=== PATIENT | male | born 1950 | race Caucasian/White ===

== ENCOUNTER → 2017-01-14 | Outpatient (CLI) | payer OTHER ==
[~2017-01-14] MED LIST: ALBINS INH; ALBU18002 INH; ALBUAER2 INH; AMLO-114 PO; ASCA500 PO; ASPI81TA28 PO; CYAN10005 PO; FERR1TAB23 PO; FLVHFA44 INH; GABA-113 PO; LORA10TA44 PO; METHPOW7; METHPOW7 PO; MONT1TAB5 PO; NRN600 PO; NXM/40 PO; RIVA1TAB4 PO; ROSU40TA PO; SUCR1TAB29 PO; TRAM-10 PO; UMEC1INH INH; XNX25 PO
--- NOTE | 2017-01-14 10:17 | DIAGNOSTIC IMAGING REPORT ---
MRI OF THE LUMBAR SPINE WITHOUT IV CONTRAST CLINICAL HISTORY: Right lower extremity radiculopathy. COMPARISON STUDY: MRI of the lumbar spine dated 05/18/2014. TECHNIQUE: MRI of the lumbar spine is performed utilizing various T1 and T2-weighted sequences in the axial and sagittal planes. IV contrast was not administered for this examination. FINDINGS: Lumbar spine: Vertebral body height and alignment are maintained throughout the lumbar spine. There is mild straightening of the lumbar lordosis. Small anterior osteophytes are seen throughout. Mild degenerative endplate edema is noted at L2-L3. Chronic degenerative endplate change is seen at L3-L4, L4-L5, and L5-S1. No destructive bony lesion is identified. The transverse and spinous processes are intact as visualized. There is no evidence of spondylolysis. Intervertebral discs: There is degenerative disc desiccation seen throughout the lumbar spine. Moderate loss of height is seen at L1-L2 and L4-L5. Advanced loss of height is present at L5-S1. Spinal cord: Visualized spinal cord is normal in morphology and signal intensity. The conus medullaris terminates at the L1-L2 interspace. The nerve roots of the cauda equina are normal in morphology. L1-L2: There is a posterior disc bulge eccentric to the right. There is no significant acquired compromise in the central canal. There is mild right-sided subarticular stenosis. This abuts the exiting right L1 and transiting right L2 nerve roots. L2-L3: There is a small posterior disc bulge with annular fissure. There is no significant acquired compromise of the central canal. Mild bilateral subarticular stenosis is noted. The neural foramina are patent. L3-L4: There is broad-based posterior disc bulge with annular fissure. There is no significant acquired compromise of the central canal. There is mild bilateral subarticular stenosis. The disc bulge abuts the transiting left L4 nerve root. L4-L5: There is broad-based posterior disc bulge eccentric to the right. There is no significant acquired compromise of the central canal. The minimum AP canal diameter measures 13 mm. There is bilateral subarticular stenosis. The disc bulge may impinge on the exiting right L4 and abuts the transiting right L5 nerve roots. There is mild left-sided subarticular stenosis. Facet arthropathy is of no consequence. The neural foramina are patent. L5-S1: There is posterior disc bulge eccentric to the left with annular fissure. There is no significant acquired compromise of the central canal. The disc bulge impinges on the exiting left L5 and the transiting left S1 nerve roots. Sacrum: Visualized sacrum is normal in morphology and signal intensity. Soft tissues: There is mild fatty atrophy of the paraspinous musculature. The partially imaged retroperitoneal structures are grossly unremarkable when completely assessed. There is ectasia of the distal abdominal aorta which measures up to 2.7 cm. IMPRESSION: 1. There is no large disc herniation or significant acquired compromise of the central canal. 2. Multilevel lumbosacral spondylosis. See above discussion for detailed level by level analysis. 3. Degenerative disc disease as above. Endplate edema is present at L2-L3. Dictated: 01/14/2017 9:53 AM Transcribed: 01/14/2017 10:17 AM L[place] Electronically signed by: Juarez Rodriguez M.D. 01/14/2017 10:45 AM Dictated Date/Time: 01/14/2017 9:53 AM
== END | disposition home or self-care (01) ==
LOC: C.MRIBC 08:41
PROVIDERS: ATTEND Anesthesiology
DX: M47.27 Other spondylosis with radiculopathy, lumbosacral region (principal); M51.36 Other intervertebral disc degeneration, lumbar region; R60.9 Edema, unspecified

== ENCOUNTER → 2017-01-29 | Outpatient (CLI) | payer OTHER ==
[~2017-01-29] MED LIST changes: -NRN600 PO
== END | disposition home or self-care (01) ==
LOC: C.RDSM 11:25
PROVIDERS: ATTEND Orthopaedic Surgery Sports Medicine
DX: M79.605 Pain in left leg (principal); M79.604 Pain in right leg

== ENCOUNTER → 2017-03-30 | Day surgery (SDC) | payer OTHER ==
[2017-03-18 15:51] VITALS: Ht 179.1 cm; Wt 90.9 kg
[~2017-03-30] VITALS: Ht 179.1 cm; Wt 90.9 kg
[~2017-03-30] MED LIST changes: -ALBINS INH; -ALBUAER2 INH; +IOPAMIDOL INJ 61% 15 ML VIAL ONE; +LIDOCAINE HCL 1% MPF 5 ML VIAL ONE; -METHPOW7; +SODIUM CHLORIDE 0.9% INJ 10 ML VIAL ONE; -SUCR1TAB29 PO; -XNX25 PO
--- NOTE | 2017-03-30 12:56 | History & Physical Bridge - SC ---
H&P Re-Evaluation Bridge Note: I have examined the patient, reviewed the History & Physical and in the interval since the performance of the History & Physical I have noted the following changes of clinical significance: No changes noted
[2017-03-30 13:23] VITALS: TEMP 37.2
--- NOTE | 2017-03-30 13:29 | Discharge Instructions ---
Discharge Instructions Date of Service March 30, 2017. Visit Reason for Visit: Lumbar Radiculopathy Discharge Discharge Diagnosis / Problem: Right leg pain Discharge Goals Goal(s): Decrease discomfort, Improve function Medications Stopped Medications Name(s): ASA and Xaralto stopped 03/26. Activity Recommendations Activity Limitations: resume your previous activity Anesthesia . Post Anesthesia Instructions: If you have had General Anesthesia or IV Sedation: * Do not drive today. * Resume driving when surgeon permits. * Do not make important decisions or sign legal documents today. * Call surgeon for: 1. Temperature elevations greater than 101 degrees F. 2. Uncontrollable pain. 3. Excessive bleeding. 4. Persistent nausea and vomiting. 5. Medication intolerance (nausea, vomiting or rash). * For nausea and vomiting use only clear liquids such as: tea, soda, bouillon until nausea subsides, then gradually increase diet as tolerated. * If you have any concerns or questions, call your surgeon's office. If physician is unavailable and it is an emergency, call 911 or go to the nearest emergency room. . Diet Recommendations Recommended Home Diet: resume previous diet Procedures Procedures Performed: lumbar epidural steroid injection Pending Studies Studies pending at discharge: no Medical Emergencies . Who to Call and When: Medical Emergencies: If at any time you feel your situation is an emergency, please call 911 immediately. . Non-Emergent Contact Non-Emergency issues call your: Specialist . . "Provider Documentation" section prepared by Anthony Naqvi. .
[2017-03-30 13:36] VITALS: BP 143/83; PULSE 66; O2SAT 96
--- NOTE | 2017-03-30 13:51 | OPERATIVE REPORT ---
DATE OF OPERATION: 03/30/2017 PREOPERATIVE DIAGNOSIS: L4-L5 disc protrusion with a right lower extremity radiculopathy. POSTOPERATIVE DIAGNOSIS: Same. PROCEDURE: Right paramedian L4-L5 interlaminar epidural steroid injection under fluoroscopic guidance. SURGEON: Dr. Anthony Naqvi. INDICATIONS: The patient is a 67-year-old white male who has had a 12-year history of radicular pain down the leg. His examination and history are most consistent with a radiculopathy. Imaging of the MRI reveals a disc protrusion at L4-L5 coming in close contact with the L4 and L5 nerve roots. He presents today for a lumbar epidural steroid injection to provide him with relief as he has failed conservative treatment. PHYSICAL EXAMINATION: Pleasant male seated comfortably. He has no sciatic notch sensitivity. He has normal sensation. He has some increased sensitivity of the dermatome of the right lower extremity L5. He is without any focal weakness. Negative seated straight leg raises. CONSENT: Verbal and written consent was obtained from the patient. Risks and benefits were reviewed. Risks include but are not limited to epidural abscess, epidural hematoma, allergic reaction, dural puncture. The patient wishes to proceed. PROCEDURE: The patient was taken back to the special procedures room of the [facility] where he was maintained in a prone position. Backside was cleansed with Betadine x3 and a dry sterile dressing was applied. Fluoroscope was used to identify the L4-L5 interlaminar space. The overlying skin was anesthetized on the right side with 4 mL of lidocaine 1% with a 25 gauge 1.5-inch needle. A 22-gauge 3-1/2 inch Tuohy needle was then directed down towards the intralaminar space and was advanced under lateral fluoroscopic guidance. Loss of resistance was noted at a depth of 6.5 cm. Isovue 300 contrast was not utilized given his reaction of hives in the past to it. He then underwent injection after negative aspiration of 40 mg of Depo-Medrol, 4 mL of preservative free sodium chloride. Injection was well tolerated and reproduced a familiar transient radicular sensation into the leg and back. DISPOSITION: 1. The patient is taken out into the discharge recovery area where he will be discharged home once discharge criteria have been met. 2. Follow up in the [facility] office in 2-4 weeks. I attest to the content of the Intraoperative Record and any orders documented therein. Any exceptio ns are noted below.
== END | disposition home or self-care (01) ==
LOC: X.SURG 11:55
PROVIDERS: ATTEND Physical Medicine & Rehabilitation
DX: M51.26 Other intervertebral disc displacement, lumbar region (principal); M54.16 Radiculopathy, lumbar region; Z79.82 Long term (current) use of aspirin

== ENCOUNTER → 2017-12-24 | Outpatient (CLI) | payer OTHER ==
[~2017-12-24] MED LIST changes: -IOPAMIDOL INJ 61% 15 ML VIAL ONE; -LIDOCAINE HCL 1% MPF 5 ML VIAL ONE; -SODIUM CHLORIDE 0.9% INJ 10 ML VIAL ONE
--- NOTE | 2017-12-24 13:40 | DIAGNOSTIC IMAGING REPORT ---
LUMBAR SPINE 4 VIEWS CLINICAL HISTORY: Right leg pain. FINDINGS: An AP view of the lumbar spine as well as lateral views of the lumbar spine in the neutral, lateral, and flexed positions are correlated with MRI of lumbar spine dated 07/21/2010. The skeletal structures are well mineralized for age. There is no radiographic evidence of fracture or malalignment. Vertebral body height is maintained throughout the lumbar spine. There is 6 mm of retrolisthesis at L1-L2. This was stable on the flexion/extension views. Vertebral body alignment is otherwise maintained. There was no inducible subluxation present on the flexion/extension views. Anterior osteophytes are seen throughout. The transverse and spinous processes appear intact. Mild lumbar levocurvature may be positional. Moderate facet arthropathy is seen at L5-S1. There is [id number] disc space narrowing at L5-S1 with associated endplate sclerosis. Mild disc space narrowing is seen at the remaining lumbar levels. The bony pelvis is intact as visualized. Mild sclerotic change is noted in the sacroiliac joints. There is a nonobstructed abdominal bowel gas pattern. Atherosclerotic calcification is observed in the abdominal aorta. IMPRESSION: 1. No acute bony abnormality seen in the lumbar spine. 2. There is mild retrolisthesis at L1-L2. This was stable in the flexion/extension views. 3. No disc subluxation was seen on the flexion/extension views. 4. Spondylotic change as above. Dictated: 12/24/2017 1:17 PM Transcribed: 12/24/2017 1:40 PM Hilda Electronically signed by: Juarez Rodriguez M.D. 12/24/2017 1:48 PM Dictated Date/Time: 12/24/2017 1:17 PM
== END | disposition home or self-care (01) ==
LOC: C.RDSM 18:48
PROVIDERS: ATTEND Orthopaedic Surgery
DX: M79.604 Pain in right leg (principal)

== ENCOUNTER 2024-05-23 08:48 | Observation (INO) ==
[2024-05-23] MEDS: methylPREDNISolone 125 MG/2 ML VIAL IV ONE (09:40)
[2024-05-23] MEDS: diphenhydrAMINE 50 MG/ML VIAL IV ONE (09:40)
[2024-05-23 10:21] LABS: Adenovirus PCR Not Detected (NotDetected); Bordetella parapertussis PCR Not Detected (NotDetected); Bordetella pertussis PCR Not Detected (NotDetected); Chlamydia pneumoniae PCR Not Detected (NotDetected); Coronavirus 229E PCR Not Detected (NotDetected); Coronavirus CoV-2 (COVID19)PCR Not Detected (NotDetected); Coronavirus HKU1 PCR Not Detected (NotDetected); Coronavirus NL63 PCR Not Detected (NotDetected); Coronavirus OC43PCR Not Detected (NotDetected); Human Metapneumovirus PCR Not Detected (NotDetected); Influenza A PCR Not Detected (NotDetected); Influenza B PCR Not Detected (NotDetected); Mycoplasma pneumoniae PCR Not Detected (NotDetected); Parainfluenza Virus 1 PCR Not Detected (NotDetected); Parainfluenza Virus 2 PCR Not Detected (NotDetected); Parainfluenza Virus 3 PCR Not Detected (NotDetected); Parainfluenza Virus 4 PCR Not Detected (NotDetected); Respiratory Syncytial VirusPCR Not Detected (NotDetected); Rhinovirus/Enterovirus PCR Not Detected (NotDetected)
--- NOTE | 2024-05-23 10:32 | Emergency Department Note ---
Impression & Plan Generalized weakness, Abdominal pain, Infarction of spleen ED Provider Note HISTORY OF PRESENT ILLNESS: Patient is a 74 year old male presenting with abdominal pain and weakness. Patient reports that he has had symptoms for the last week. States he was seen in [facility] a week ago and was told that he had an abdominal aortic aneurysm and "they wanted to transfer me to [place] but I said no." He states that in the last week he has been having intermittent episodes of left-sided abdominal pain. Reports nausea but denies any vomiting or diarrhea. He states that he is also feels very unsteady on his feet. He states he feels very weak and rundown. Denies any chest pain or shortness of breath. He is on Plavix for history of cardiac stents. He denies any fevers. Denies any dysuria or hematuria. ROS: as above PHYSICAL EXAM: Constitutional: Patient appears in no acute distress. HENT: Head: Normocephalic and atraumatic. Eyes: EOMI, PERRL Mouth/Throat: Mucous membranes moist. Neck: Trachea midline. Neck supple. Cardiovascular: RRR, No murmurs, rubs or gallops. Intact distal pulses. Pulmonary/Chest: No respiratory distress. Breath sounds clear and equal bilaterally. No wheezes or rales. Abdominal: Abdomen soft, no tenderness, rebound or guarding. Musculoskeletal: No edema, tenderness or deformity noted. Skin: Warm and dry. No rash, erythema, pallor or cyanosis Psychiatric: Appropriate mood and affect for situation. Neurological: Alert and keenly responsive. Facies symmetric. Able to raise eyebrows, close eyes, smile, puff mouth, stick out tongue, move tongue left and right and raise palate symmetrically. Able to shrug shoulders. PERRLA. SILT to forehead below eye and at jawline. Can hear soft noise bilaterally. Good finger to nose. Strength 5/5 in bilateral upper and lower extremities. SILT throughout bilateral upper and lower extremities. MDM: - Vitals signs stable - History obtained via patient. History as above. - Chronic conditions affecting care: GERD; Afib; HTN; HLD; COPD - Differential diagnoses include, but are not limited to: gastritis; cholecystitis; small bowel obstruction; ischemic gut; CVA - Order placed for continuous cardiac monitoring. At this time, monitor showed rate of 65 bpm with normal sinus rhythm, per my interpretation. - External medical records reviewed. Pulmonary visit note dated 04/28/2024 was reviewed. Patient follows in their clinic for COPD. - EKG interpreted by myself showed normal sinus rhythm. Rate 75 bpm. QT 388. No acute ischemic changes - Laboratory workup interpreted by myself showed leukopenia (WBC 2.84); normal PT/INR; stable electrolytes; normal troponin; normal lactate; normal lipase - UA negative for infection - Viral respiratory panel negative - Patient given 40 mg IV solumedrol and 50 mg IV benadryl for pre-treatment for CT scan. - CT head wo contrast negative for acute hemorrhage, per my interpretation - CT abdomen/pelvis with IV contrast showed subtle hypoenhancement of a small portion of the medial aspect of the spleen concerning for possible small splenic infarct. Noted to have a 3.1 cm infrarenal abdominal aortic aneurysm. Also noted to have mild fluid-filled distal small bowel and right colon, concerning for gastroenteritis. - Given patient's symptoms and concerns for weakness, will admit for further workup - Discussion was had with case fitter about patient's case and need for admission - Hospitalist, Dr. Sexton, consulted for admission - [facility] admitted [facility] for further evaluation and management. ASSESSMENT AND PLAN: Diagnosis: generalized weakness; abdominal pain; splenic infarction Plan: admit Past Med/Surg History Problem List (Updated 05/23/24 @ 13:43 by Bridget Du MD) Infarction of spleen (Acute) Abdominal pain (Acute) Generalized weakness (Acute) Gastritis Encounter for pre-operative examination Neuropathy Mixed action and resting tremor Abnormal CT scan, chest Ground glass opacities 06/15/2023 Allergic rhinitis MACIEL (dyspnea on exertion) History of sinusitis History of tobacco use Chronic back pain greater than 3 months duration Pulmonary nodule seen on imaging study History of COVID-19 Encounter for pre-operative examination Sensorineural hearing loss (SNHL) Chronic rhinitis Excessive cerumen in both ear canals Acid reflux Seasonal allergies Asthma Hypertension Heart disease Action tremor (Chronic) Vitamin B12 deficiency Tremor TIA (transient ischemic attack) Restless leg syndrome Lumbar radiculopathy Lumbar canal stenosis Anterior leg pain History of esophageal reflux Chronic obstructive pulmonary disease Chronic asthmatic bronchitis Back pain Atrial fibrillation GERD (gastroesophageal reflux disease) Medical History Epigastric abdominal pain Neuropathy Enlarged prostate History of sinusitis History of COVID-19 Tremor Osteoarthritis Spinal stenosis DDD (degenerative disc disease) GERD (gastroesophageal reflux disease) Hearing deficit AAA (abdominal aortic aneurysm) Atrial fibrillation CAD (coronary artery disease) HLD (hyperlipidemia) HTN (hypertension) COPD (chronic obstructive pulmonary disease) Asthma Surgical History History of cardioversion H/O eye surgery History of sinus surgery History of right knee surgery History of esophagogastroduodenoscopy (EGD) History of colonoscopy History of cardiac catheterization Presence of Watchman left atrial appendage closure device History of cardiac radiofrequency ablation Family History Mother Brain tumor Sister Cancer Other No family history of adverse response to anesthesia No family history of bleeding disorder Social History Smoking Status: Former smoker Tobacco Type: Cigarettes Age Started Using Tobacco: 12; Age Quit Using Tobacco: 62; packs per day: 1.5; Second Hand Exposure: Yes (AT WORK/MOTHER SMOKED); Do You Dip or Chew Tobacco: No (hx off and on for 10 yr/ quit > 1 yr ago.); Hx Alcohol Use: Yes (hx heavy/11 yr ago) Hx Substance Use: No Preferred Language: Nauruan Communication Ability: Effective Hearing Ability: Use of Hearing Aid [employer] Supervisor Required: No Beliefs That Will Affect Care: None Current Living Situation: Significant Other current occupational status: retired Feels Safe at Home: Yes Assistive Devices: Denture - Upper, Denture - Lower, Hearing Aid - Bilateral and Other Allergies Allergies Allergy/AdvReac Type Severity Reaction Status Date / Time Iodinated Contrast Media Allergy Mild Hives Verified 04/26/24 12:31 house dust mite Allergy Unknown Per Verified 04/26/24 12:31 allergy testing levalbuterol Allergy Unknown Dyspnea, Verified 04/26/24 12:31 elevated heart rate ? - pt doesn't remember mold Allergy Unknown Per Verified 04/26/24 12:31 allergy testing ragweed pollen Allergy Unknown Per Verified 04/26/24 12:31 allergy testing albuterol [From Combivent] AdvReac Unknown Heart Verified 04/26/24 12:31 racing ipratropium [From [employer]] AdvReac Unknown Heart Verified 04/26/24 12:31 racing lisinopril AdvReac Unknown Cough Verified 04/26/24 12:31 Home Meds Home Medications Medication Instructions Recorded Confirmed amlodipine 10 mg tablet 10 mg PO QAM 07/17/20 04/26/24 rosuvastatin 40 mg tablet 40 mg PO QPM 07/17/20 04/26/24 multivitamin 1 tab PO QAM 03/26/21 04/26/24 aspirin 81 mg tablet,delayed 81 mg PO QAM 05/28/21 04/26/24 release clopidogrel 75 mg tablet 75 mg PO QAM 07/01/23 04/26/24 polyethylene glycol 3350 17 17 g PO QAM 12/09/23 04/26/24 gram/dose oral powder (Miralax) psyllium husk 0.4 gram capsule 0.4 g PO QAM 12/09/23 04/26/24 (Metamucil) trazodone 50 mg tablet 50 mg PO UD PRN Sleep 12/09/23 04/26/24 ezetimibe 10 mg tablet 10 mg PO QPM 12/14/23 04/26/24 fexofenadine 60 mg-pseudoephedrine 1 tab PO UD PRN allergy symptoms 12/14/23 04/26/24 ER 120 mg tablet,ext.release,12 hr hydrochlorothiazide 12.5 mg tablet 12.5 mg PO QAM 12/14/23 04/26/24 montelukast 10 mg tablet 10 mg PO QAM 12/14/23 04/26/24 Previous Rx's Medication Instructions Recorded Flutter Valve #1 ea 10/06/22 azelastine 137 mcg (0.1 %) nasal 2 spray intranasal BID #30 mL 03/11/23 spray albuterol sulfate 2.5 mg/3 mL 2.5 mg (3 mL) inhalation Q4H PRN 07/07/23 (0.083 %) solution for nebulization shortness of breath or wheezing #180 mL albuterol sulfate 90 mcg/actuation 2 puff inhalation Q6H PRN Wheezing 11/03/23 aerosol inhaler (ProAir HFA) #6.7 grams linaclotide 290 mcg capsule 290 mcg PO DAILY #90 caps 12/28/23 (Linzess) pantoprazole 40 mg tablet,delayed See Rx Instructions PO DAILY #90 12/28/23 release tabs sucralfate 1 gram tablet 1 g PO Q6H PRN abdominal 12/28/23 discomfort #120 tabs gabapentin 300 mg capsule 300 mg PO BID 30 days #60 caps 01/06/24 baclofen 10 mg tablet 10 mg PO BID PRN leg pain /Muscle 03/07/24 Spasm #60 tabs pregabalin 200 mg capsule 200 mg PO BID 30 days #60 caps 03/07/24 primidone 50 mg tablet 50 mg PO DAILY PRN tremors #30 03/07/24 tabs tramadol 50 mg tablet 100 mg (2 x 50 mg) PO BID PRN pain 03/07/24 30 days #120 tabs azithromycin 250 mg tablet 250 mg PO DAILY 5 days #5 tabs 03/17/24 prednisone 20 mg tablet 20 mg PO DAILY #7 tabs 03/17/24 umeclidinium 62.5 mcg-vilanterol 1 inh inhalation DAILY #60 ea 03/17/24 25 mcg/actuation powdr for inhalation (Anoro Ellipta) Results & Data (ED) Vital Signs Vital Signs - 24 hr 05/23/24 08:50 05/23/24 09:01 05/23/24 09:27 Temperature 36.5 C Temperature Source Temporal Artery Scan Pulse Rate 86 Pulse Rate [Apical] 67 Pulse Rate from SpO2 Sensor Respiratory Rate 20 16 Respiratory Depth Normal Blood Pressure 111/46 L 141/76 H Blood Pressure [Right Arm] 141/76 H Blood Pressure Mean 67 90 Blood Pressure Mean [Right Arm] 97 Pulse Oximetry 95 97 Oxygen Delivery Method Room Air Sepsis Recent Fever Within 48 Hours No Sepsis New/Unexplained Change in Mental Status N/A Sepsis Action Taken by Nursing No Action Required 05/23/24 09:29 05/23/24 10:48 05/23/24 11:00 Temperature Temperature Source Pulse Rate 68 63 62 Pulse Rate [Apical] Pulse Rate from SpO2 Sensor 63 62 Respiratory Rate 15 15 Respiratory Depth Blood Pressure Blood Pressure [Right Arm] Blood Pressure Mean Blood Pressure Mean [Right Arm] Pulse Oximetry 99 96 Oxygen Delivery Method Sepsis Recent Fever Within 48 Hours Sepsis New/Unexplained Change in Mental Status Sepsis Action Taken by Nursing 05/23/24 11:16 05/23/24 12:18 05/23/24 12:51 Temperature Temperature Source Pulse Rate 68 65 Pulse Rate [Apical] Pulse Rate from SpO2 Sensor 59 L 65 Respiratory Rate 16 12 Respiratory Depth Blood Pressure Blood Pressure [Right Arm] Blood Pressure Mean Blood Pressure Mean [Right Arm] Pulse Oximetry 98 97 97 Oxygen Delivery Method Sepsis Recent Fever Within 48 Hours Sepsis New/Unexplained Change in Mental Status Sepsis Action Taken by Nursing Laboratory Data 05/23/24 10:16 05/23/24 11:31 Lab Results 05/23/24 05/23/24 05/23/24 Range/Units 09:08 09:35 10:16 WBC 2.84 L (4.8-10.8) K/ul RBC 4.84 (4.70-6.10) M/uL Hgb 13.7 L (14.0-18.0) g/dl Hct 42.3 (42.0-52.0) % MCV 87.4 (80.0-100.0) fL MCH 28.3 (25.0-34.0) pg MCHC 32.4 (32.0-36.0) g/dL RDW Std Deviation 53.6 H (36.4-46.3) fL RDW Coeff of Ivan 16.9 H (11.5-14.5) % Plt Count 140 (130-400) K/uL MPV 10.8 (9.4-12.4) fL Immature Gran % (Auto) 0.7 % Neut % (Auto) 40.5 % Lymph % (Auto) 40.1 % [place] % (Auto) 16.1 % Eos % (Auto) 1.5 % Baso % (Auto) 1.1 % Neut # (Auto) 1.11 L (1.40-6.50) K/uL Lymph # (Auto) 1.10 L (1.20-3.40) K/uL [place] # (Auto) 0.44 (0.11-0.59) K/uL Eos # (Auto) 0.04 (0.00-0.50) K/uL Baso # (Auto) 0.03 (0.00-0.20) K/uL Immature Gran # (Auto) 0.02 (0.01-0.20) K/uL PT 11.4 (9.0-12.0) Seconds INR 1.1 (0.9-1.1) Sodium Cancelled 134 L Potassium Cancelled TNP Chloride Cancelled 105 Carbon Dioxide Cancelled 23 Anion Gap Cancelled 6 BUN Cancelled 12 Creatinine Cancelled 1.28 Est Cr Clr Drug Dosing Cancelled 58.8 Est GFR ( Amer) Cancelled 63.5 Est GFR (Non-Af Amer) Cancelled 54.8 BUN/Creatinine Ratio Cancelled 9.4 L Glucose Cancelled 89 Lactate 1.5 (0.4-2.0) mmol/L Calcium Cancelled 9.6 Total Bilirubin Cancelled 0.8 AST Cancelled TNP ALT Cancelled 118 H Alkaline Phosphatase Cancelled 89 Troponin I High Sens Cancelled 3.8 Total Protein Cancelled 7.3 Albumin Cancelled 3.9 Globulin Cancelled 3.4 Albumin/Globulin Ratio Cancelled 1.1 Lipase Cancelled 23 Urine Color Urine Appearance (Clear) Urine pH (4.5-7.5) Ur Specific [place] (1.000-1.030) Urine Protein (Negative) Urine Glucose (UA) (Negative) Urine Ketones (Negative) Urine Blood (Negative) Urine Nitrite (Negative) Urine Bilirubin (Negative) Urine Urobilinogen (Negative) Ur Leukocyte Esterase (Negative) Adenovirus (PCR) Not Detected (NotDetected) B. pertussis DNA (PCR) Not Detected (NotDetected) B.parapertussis DNA PCR Not Detected (NotDetected) C. pneumoniae DNA (PCR) Not Detected (NotDetected) Coronavirus OC43 (PCR) Not Detected (NotDetected) Coronavirus HKU1 (PCR) Not Detected (NotDetected) Coronavirus 229E (PCR) Not Detected (NotDetected) SARS-CoV-2 (PCR) Not Detected (NotDetected) Coronavirus NL63 (PCR) Not Detected (NotDetected) Human Metapneumovir PCR Not Detected (NotDetected) Influenza Type A (PCR) Not Detected (NotDetected) Influenza Type B (PCR) Not Detected (NotDetected) M. pneumoniae (PCR) Not Detected (NotDetected) Parainfluenza 1 (PCR) Not Detected (NotDetected) Parainfluenza 2 (PCR) Not Detected (NotDetected) Parainfluenza 3 (PCR) Not Detected (NotDetected) Parainfluenza 4 (PCR) Not Detected (NotDetected) RSV (PCR) Not Detected (NotDetected) Entero/Rhino (PCR) Not Detected (NotDetected) 05/23/24 05/23/24 Range/Units 11:15 11:31 WBC (4.8-10.8) K/ul RBC (4.70-6.10) M/uL Hgb (14.0-18.0) g/dl Hct (42.0-52.0) % MCV (80.0-100.0) fL MCH (25.0-34.0) pg MCHC (32.0-36.0) g/dL RDW Std Deviation (36.4-46.3) fL RDW Coeff of Ivan (11.5-14.5) % Plt Count (130-400) K/uL MPV (9.4-12.4) fL Immature Gran % (Auto) % Neut % (Auto) % Lymph % (Auto) % [place] % (Auto) % Eos % (Auto) % Baso % (Auto) % Neut # (Auto) (1.40-6.50) K/uL Lymph # (Auto) (1.20-3.40) K/uL [place] # (Auto) (0.11-0.59) K/uL Eos # (Auto) (0.00-0.50) K/uL Baso # (Auto) (0.00-0.20) K/uL Immature Gran # (Auto) (0.01-0.20) K/uL PT (9.0-12.0) Seconds INR (0.9-1.1) Sodium Potassium 4.2 Chloride Carbon Dioxide Anion Gap BUN Creatinine Est Cr Clr Drug Dosing Est GFR ( Amer) Est GFR (Non-Af Amer) BUN/Creatinine Ratio Glucose Lactate (0.4-2.0) mmol/L Calcium Total Bilirubin AST 56 H ALT Alkaline Phosphatase Troponin I High Sens Total Protein Albumin Globulin Albumin/Globulin Ratio Lipase Urine Color Dark Yellow Urine Appearance Clear (Clear) Urine pH 6.5 (4.5-7.5) Ur Specific [place] 1.016 (1.000-1.030) Urine Protein Negative (Negative) Urine Glucose (UA) Negative (Negative) Urine Ketones Negative (Negative) Urine Blood Negative (Negative) Urine Nitrite Negative (Negative) Urine Bilirubin Negative (Negative) Urine Urobilinogen Negative (Negative) Ur Leukocyte Esterase Negative (Negative) Adenovirus (PCR) (NotDetected) B. pertussis DNA (PCR) (NotDetected) B.parapertussis DNA PCR (NotDetected) C. pneumoniae DNA (PCR) (NotDetected) Coronavirus OC43 (PCR) (NotDetected) Coronavirus HKU1 (PCR) (NotDetected) Coronavirus 229E (PCR) (NotDetected) SARS-CoV-2 (PCR) (NotDetected) Coronavirus NL63 (PCR) (NotDetected) Human Metapneumovir PCR (NotDetected) Influenza Type A (PCR) (NotDetected) Influenza Type B (PCR) (NotDetected) M. pneumoniae (PCR) (NotDetected) Parainfluenza 1 (PCR) (NotDetected) Parainfluenza 2 (PCR) (NotDetected) Parainfluenza 3 (PCR) (NotDetected) Parainfluenza 4 (PCR) (NotDetected) RSV (PCR) (NotDetected) Entero/Rhino (PCR) (NotDetected) Administered Medications Discontinued Medications Diphenhydramine HCl (Diphenhydramine 50 Mg/Ml Vial) 50 mg IV ONE ONE Stop: 05/23/24 09:34 Last Admin: 05/23/24 09:40 Dose: 50 mg Documented By: ARI Ioversol (Optiray 320 100ml) 94 ml IV ONCE ONE Stop: 05/23/24 11:20 Last Admin: 05/23/24 11:19 Dose: 94 ml Documented By: THUAN Methylprednisolone (Methylprednisolone 125 Mg/2 Ml Vial) 40 mg IV NOW ONE Stop: 05/23/24 09:34 Last Admin: 05/23/24 09:40 Dose: 40 mg Documented By: ARI Imaging Data Radiologist's Impression: Abdomen/Pelvis CT 05/23/24 09:33 CT OF THE ABDOMEN AND PELVIS WITH CONTRAST CLINICAL HISTORY: Abdominal pain. COMPARISON STUDY: CT of the abdomen and pelvis February 24, 2021. Chest CT July 29, 2023. TECHNIQUE: Following IV administration of 94 mL of Optiray, axial images of the abdomen and pelvis were obtained from the lung bases to the proximal femurs. Images were reviewed in the axial, sagittal, and coronal planes. IV contrast was administered without complication. Automated exposure control was utilized for the study. A dose lowering technique was utilized adhering to the principles of ALARA. FINDINGS: Emphysema is incidentally noted within the lower lungs. A few left lower lobe pulmonary nodules are unchanged since CT of February 24, 2021. These are benign given stability. Mild splenomegaly has developed since chest CT of July 21, 2023. There is trace fluid within the splenic hilum. There is subtle hypoenhancement of a small portion of the medial aspect of the spleen on axial image 100 of 429. The liver, adrenal glands and pancreas are unremarkable. The right kidney is unremarkable. A few subcentimeter left renal lesions are too small characterize but are likely benign. There is no hydronephrosis. There is diffuse bladder wall thickening, increased since prior CT. The distal small bowel and right colon are fluid-filled. There is no evidence for a bowel obstruction. There is no evidence for acute appendicitis. Caliber of the appendix is at the upper limits of normal. There is extensive aortoiliac atherosclerotic plaque. There is a 3.1 cm infrarenal abdominal aortic aneurysm. No acute fractures within the visualized skeletal structures are present. IMPRESSION: 1. Interval development of mild splenomegaly since chest CT of July 29, 2023. Subtle hypoenhancement of a small portion of the medial aspect of the spleen raises the possibility of a small splenic infarct. Trace adjacent stranding and fluid. 2. 3.1 cm infrarenal abdominal aortic aneurysm. 3. No bowel obstruction. Mildly fluid-filled distal small bowel and right colon. This could be seen in setting of a gastroenteritis. No bowel wall thickening. No evidence for acute appendicitis. 4. Diffuse bladder wall thickening. This could be correlated with urinalysis. ACT 112: Negative or not required by law. Electronically signed by: Yusuf Cowart M.D. 05/23/2024 12:[address] 05/23/24 09:[address] DOSE: 2130.6 mGy.cm HISTORY: dizziness; gait instability TECHNIQUE: Multiaxial CT images of the head were performed without the use of intravenous contrast. Automated exposure control was utilized for this study. A dose lowering technique was utilized adhering to the principles of ALARA. Comparison: Head CT 11/16/2011. Findings: The paranasal sinuses and mastoid air cells are clear. The calvarium and skull base are intact. The ventricles and sulci are within normal limits. There is no mass, hematoma, midline shift, or acute infarct. Impression: No acute intracranial abnormality. ACT 112: Negative or not required by law. Electronically signed by: Boni Garcia M.D. 05/23/2024 11:53 AM Discharge Plan Visit Data Chief Complaint: Abdominal Pain Stated Complaint: abd pain, loss of balance ED Provider: Bridget Du Discharge Problem: Generalized weakness, Abdominal pain, Infarction of spleen Forms Stand Alone Forms: [facility] Prescriptions Prescriptions: No Action albuterol sulfate 2.5 mg /3 mL (0.083 %) solution for nebulization 2.5 mg inhalation Q4H PRN (Reason: shortness of breath or wheezing) Qty: 180 5RF albuterol sulfate [ProAir HFA] 90 mcg/actuation HFA aerosol inhaler 2 puff INHALATION Q6H PRN (Reason: Wheezing) Qty: 6.7 3RF baclofen 10 mg tablet 10 mg PO BID PRN (Reason: leg pain /Muscle Spasm) Qty: 60 5RF primidone 50 mg tablet 50 mg PO DAILY PRN (Reason: tremors ) Qty: 30 5RF pregabalin 200 mg capsule 200 mg PO BID 30 Days Qty: 60 5RF tramadol 50 mg tablet 100 mg PO BID PRN (Reason: pain) 30 Days Qty: 120 5RF Rx Instructions: must last 30 days rosuvastatin 40 mg tablet 40 mg PO QPM azelastine 137 mcg (0.1 %) aerosol,spray 2 spray intranasal BID Qty: 30 1RF Rx Instructions: administer into each nostril clopidogrel 75 mg tablet 75 mg PO QAM trazodone 50 mg tablet 50 mg PO UD PRN (Reason: Sleep) polyethylene glycol 3350 [Miralax] 17 gram/dose powder 17 g PO QAM psyllium husk [Metamucil] 0.4 gram capsule 0.4 g PO QAM (DME) Flutter Valve Device See Rx Instructions .ROUTE .MEDSUPPLY Qty: 1 0RF Rx Instructions: Use after nebulizer treatment and as needed during the day amlodipine 10 mg tablet 10 mg PO QAM gabapentin 300 mg capsule 300 mg PO BID 30 Days Qty: 60 5RF pantoprazole 40 mg tablet,delayed release (DR/EC) See Rx Instructions PO DAILY Qty: 90 3RF Rx Instructions: 1/2 hour prior to breakfast PO daily; Linzess 290 mcg capsule 290 mcg PO DAILY Qty: 90 3RF sucralfate 1 gram tablet 1 g PO Q6H PRN (Reason: abdominal discomfort) Qty: 120 3RF Anoro Ellipta 62.5-25 mcg/actuation blister with device 1 inh inhalation DAILY Qty: 60 3RF prednisone 20 mg tablet 20 mg PO DAILY Qty: 7 0RF azithromycin 250 mg tablet 250 mg PO DAILY 5 Days Qty: 5 0RF multivitamin Tablet 1 tab PO QAM aspirin 81 mg Tablet,Delayed Release (Dr/Ec) 81 mg PO QAM fexofenadine-pseudoephedrine 60-120 mg tablet extended release 12 hr 1 tab PO UD PRN (Reason: allergy symptoms) ezetimibe 10 mg Tablet 10 mg PO QPM hydrochlorothiazide 12.5 mg Tablet 12.5 mg PO QAM montelukast 10 mg Tablet 10 mg PO QAM Referrals Referrals: Manish Price [Primary Care Provider] -
[2024-05-23 11:01] LABS: Alanine Aminotransferase 118 U/L (7-52); Albumin Globulin Ratio 1.1 (0.9-2); Albumin Level 3.9 gm/dl (3.4-5.0); Alkaline Phosphatase 89 U/L (34-104); Anion Gap 6 (3-11); BUN Creatinine Ratio 9.4 (10-20); Bilirubin,Total 0.8 mg/dl (0.2-1.0); Blood Urea Nitrogen 12 mg/dl (6-23); Calcium 9.6 mg/dl (8.6-10.3); Carbon Dioxide 23 mmol/L (21-32); Chloride 105 mmol/L (98-107); Creatinine Clr Calc Pharmacy 58.8 ml/min; Est GFR (African American) 63.5 ml/min; Est GFR (Non-African American) 54.8 ml/min; Globulin 3.4 gm/dl (2.5-4.0); Glucose 89 mg/dl (70-99(Fasting)); Lipase 23 U/L (11-82); Sodium 134 mmol/L (136-145); Total Protein 7.3 gm/dl (6.0-8.3); Troponin I High Sensitivity 3.8 pg/ml (0-20)
[2024-05-23 11:04] LABS: Basophils # (auto) 0.03 K/uL (0.00-0.20); Basophils % (auto) 1.1 %; Eosinophils # (auto) 0.04 K/uL (0.00-0.50); Eosinophils % (auto) 1.5 %; Immature Granulocytes # (auto) 0.02 K/uL (0.01-0.20); Immature Granulocytes % (auto) 0.7 %; Lymphocytes % (auto) 40.1 %; Monocytes # (auto) 0.44 K/uL (0.11-0.59); Monocytes % (auto) 16.1 %; Neutrophils # (auto) 1.11 K/uL (1.40-6.50); Neutrophils % (auto) 40.5 %
[2024-05-23 11:06] LABS: Hematocrit (blood only) 42.3 % (42.0-52.0); Hemoglobin 13.7 g/dl (14.0-18.0); Mean Corpuscular Hemoglobin 28.3 pg (25.0-34.0); Mean Corpuscular Hgb Conc 32.4 g/dL (32.0-36.0); Mean Corpuscular Volume 87.4 fL (80.0-100.0); Mean Platelet Volume 10.8 fL (9.4-12.4); Platelet Count 140 K/uL (130-400); RDW Coefficient of Variation 16.9 % (11.5-14.5); RDW Standard Deviation 53.6 fL (36.4-46.3); Red Blood Count 4.84 M/uL (4.70-6.10); White Blood Count 2.84 K/ul (4.8-10.8)
[2024-05-23 11:12] LABS: INR 1.1 (0.9-1.1); Prothrombin Time 11.4 Seconds (9.0-12.0)
[2024-05-23] MEDS: OPTIRAY 320 100ml IV ONE (11:19)
[2024-05-23 11:28] LABS: Appearance Urine Clear (Clear); Bilirubin Urine Negative (Negative); Blood Urine Negative (Negative); Color Urine Dark Yellow; Glucose Urine UA Negative (Negative); Ketones Urine Negative (Negative); Leukocyte Esterase Urine Negative (Negative); Nitrite Urine Negative (Negative); Protein Urine Negative (Negative); Specific Gravity Urine 1.016 (1.000-1.030); Urobilinogen Urine Negative (Negative); pH Urine 6.5 (4.5-7.5)
--- NOTE | 2024-05-23 11:52 | Electrocardiogram Report ---
Test Reason : Blood Pressure : / mmHG Vent. Rate : 075 BPM Atrial Rate : 075 BPM P-R Int : 178 ms QRS Dur : 102 ms QT Int : 388 ms P-R-T Axes : 076 -32 034 degrees QTc Int : 433 ms Normal sinus rhythm Left axis deviation Abnormal ECG When compared with ECG of 09-JUL-2009 09:55, Vent. rate has increased BY 26 BPM T wave amplitude has decreased in Anterior leads Confirmed by Nacho Jackson ([id number]) on 05/23/2024 11:52:13 AM Referred By: Confirmed By:Nacho Jackson
[2024-05-23 12:02] LABS: Potassium 4.2 mmol/L (3.5-5.1)
--- NOTE | 2024-05-23 12:16 | CT Scan Report ---
CT OF THE ABDOMEN AND PELVIS WITH CONTRAST CLINICAL HISTORY: Abdominal pain. COMPARISON STUDY: CT of the abdomen and pelvis February 24, 2021. Chest CT July 29, 2023. TECHNIQUE: Following IV administration of 94 mL of Optiray, axial images of the abdomen and pelvis we re obtained from the lung bases to the proximal femurs. Images were reviewed in the axial, sagittal, and coronal planes. IV contrast was administered without complication. Automated exposure control wa s utilized for the study. A dose lowering technique was utilized adhering to the principles of ALARA . FINDINGS: Emphysema is incidentally noted within the lower lungs. A few left lower lobe pulmonary nod ules are unchanged since CT of February 24, 2021. These are benign given stability. Mild splenomegaly erickson s developed since chest CT of July 21, 2023. There is trace fluid within the splenic hilum. Ther e is subtle hypoenhancement of a small portion of the medial aspect of the spleen on axial image 100 of 429. The liver, adrenal glands and pancreas are unremarkable. The right kidney is unremarkable. A few subcentimeter left renal lesions are too small characterize but are likely benign. There is no hy dronephrosis. There is diffuse bladder wall thickening, increased since prior CT. The distal small derikc wel and right colon are fluid-filled. There is no evidence for a bowel obstruction. There is no evide nce for acute appendicitis. Caliber of the appendix is at the upper limits of normal. There is extens loli aortoiliac atherosclerotic plaque. There is a 3.1 cm infrarenal abdominal aortic aneurysm. No acu te fractures within the visualized skeletal structures are present. IMPRESSION: 1. Interval development of mild splenomegaly since chest CT of July 29, 2023. Subtle hypoenhance ment of a small portion of the medial aspect of the spleen raises the possibility of a small splenic infarct. Trace adjacent stranding and fluid. 2. 3.1 cm infrarenal abdominal aortic aneurysm. 3. No bowel obstruction. Mildly fluid-filled distal small bowel and right colon. This could be seen i n setting of a gastroenteritis. No bowel wall thickening. No evidence for acute appendicitis. 4. Diffuse bladder wall thickening. This could be correlated with urinalysis. ACT 112: Negative or not required by law. Electronically signed by: Yusuf Cowart M.D. 05/23/2024 12:03 PM
--- NOTE | 2024-05-23 12:16 | CT Scan Report ---
HEAD CT NONCONTRAST CT DOSE: 2130.6 mGy.cm HISTORY: dizziness; gait instability TECHNIQUE: Multiaxial CT images of the head were performed without the use of intravenous contrast. A utomated exposure control was utilized for this study. A dose lowering technique was utilized adheri ng to the principles of ALARA. Comparison: Head CT 11/16/2011. Findings: The paranasal sinuses and mastoid air cells are clear. The calvarium and skull base are int act. The ventricles and sulci are within normal limits. There is no mass, hematoma, midline shift, or acute infarct. Impression: No acute intracranial abnormality. ACT 112: Negative or not required by law. Electronically signed by: Boni Garcia M.D. 05/23/2024 11:53 AM
--- NOTE | 2024-05-23 14:36 | History & Physical Report ---
Date of Service May 23, 2024 Assessment & Plan (1) Intractable nausea: Plan: Scheduled intravenous Reglan. Treat suspected gastritis (2) Gastritis: Plan: Protonix and Carafate therapy. GI consultation requested (3) Hypertension: Plan: Stable. Continue current medical management (4) COPD (chronic obstructive pulmonary disease): Plan: Stable. Continue current medical management (5) CAD (coronary artery disease): Plan: Stable. Continue current medical management Plan Hopeful discharge to home tomorrow, May 24 History of Present Illness Chief Complaint: Intractable nausea Primary Care Provider: Manish Price 74-year-old white male with persistent nausea for the past 2 weeks. He denies melena or hematochezia. He has a history of gastritis apparently. He has been taking Protonix and Carafate apparently. Incidental finding of small infrarenal aneurysm and splenic infarct on CT scan of no current clinical significance. He is irritated that he has been asked to stay. " Nobody told me I had to stay". GI consult requested. Allergies Allergy/AdvReac Type Severity Reaction Status Date / Time Iodinated Contrast Media Allergy Mild Hives Verified 04/26/24 12:31 house dust mite Allergy Unknown Per Verified 04/26/24 12:31 allergy testing levalbuterol Allergy Unknown Dyspnea, Verified 04/26/24 12:31 elevated heart rate ? - pt doesn't remember mold Allergy Unknown Per Verified 04/26/24 12:31 allergy testing ragweed pollen Allergy Unknown Per Verified 04/26/24 12:31 allergy testing albuterol [From Combivent] AdvReac Unknown Heart Verified 04/26/24 12:31 racing ipratropium [From Combivent] AdvReac Unknown Heart Verified 04/26/24 12:31 racing lisinopril AdvReac Unknown Cough Verified 04/26/24 12:31 Home Medications Medication Instructions Recorded Confirmed Type amlodipine 10 mg tablet 10 mg PO QAM 07/17/20 05/23/24 History rosuvastatin 40 mg tablet 40 mg PO QPM 07/17/20 05/23/24 History multivitamin 1 tab PO QAM 03/26/21 05/23/24 History aspirin 81 mg tablet,delayed 81 mg PO QAM 05/28/21 05/23/24 History release Flutter Valve #1 ea 10/06/22 04/26/24 Rx azelastine 137 mcg (0.1 %) nasal 2 spray intranasal BID #30 mL 03/11/23 05/23/24 Rx spray clopidogrel 75 mg tablet 75 mg PO QAM 07/01/23 05/23/24 History albuterol sulfate 2.5 mg/3 mL 2.5 mg (3 mL) inhalation Q4H PRN 07/07/23 05/23/24 Rx (0.083 %) solution for nebulization shortness of breath or wheezing #180 mL albuterol sulfate 90 mcg/actuation 2 puff inhalation Q6H PRN Wheezing 11/03/23 05/23/24 Rx aerosol inhaler (ProAir HFA) #6.7 grams polyethylene glycol 3350 17 17 g PO QAM 12/09/23 05/23/24 History gram/dose oral powder (Miralax) psyllium husk 0.4 gram capsule 0.4 g PO QAM 12/09/23 05/23/24 History (Metamucil) trazodone 50 mg tablet 50 mg PO UD PRN Sleep 12/09/23 05/23/24 History ezetimibe 10 mg tablet 10 mg PO QPM 12/14/23 05/23/24 History fexofenadine 60 mg-pseudoephedrine 1 tab PO UD PRN allergy symptoms 12/14/23 05/23/24 History ER 120 mg tablet,ext.release,12 hr hydrochlorothiazide 12.5 mg tablet 12.5 mg PO UD 12/14/23 05/23/24 History montelukast 10 mg tablet 10 mg PO QAM 12/14/23 05/23/24 History linaclotide 290 mcg capsule 290 mcg PO DAILY #90 caps 12/28/23 05/23/24 Rx (Linzess) pantoprazole 40 mg tablet,delayed See Rx Instructions PO DAILY #90 12/28/23 05/23/24 Rx release tabs sucralfate 1 gram tablet 1 g PO Q6H PRN abdominal 12/28/23 05/23/24 Rx discomfort #120 tabs gabapentin 300 mg capsule 300 mg PO BID 30 days #60 caps 01/06/24 05/23/24 Rx baclofen 10 mg tablet 10 mg PO BID PRN leg pain /Muscle 03/07/24 05/23/24 Rx Spasm #60 tabs pregabalin 200 mg capsule 200 mg PO BID 30 days #60 caps 03/07/24 05/23/24 Rx primidone 50 mg tablet 50 mg PO DAILY PRN tremors #30 03/07/24 05/23/24 Rx tabs tramadol 50 mg tablet 100 mg (2 x 50 mg) PO BID PRN pain 03/07/24 05/23/24 Rx 30 days #120 tabs umeclidinium 62.5 mcg-vilanterol 1 inh inhalation DAILY #60 ea 03/17/24 05/23/24 Rx 25 mcg/actuation powdr for inhalation (Anoro Ellipta) spironolactone 25 1 tab PO DAILY 05/23/24 05/23/24 History mg-hydrochlorothiazide 25 mg tablet tamsulosin 0.4 mg capsule 0.4 mg PO QAM 05/23/24 05/23/24 History Past Med/Surg History Problem List (Updated 05/23/24 @ 14:35 by Manish Sexton MD) CAD (coronary artery disease) Stents x 5 total (most recent ~2014), Follows with Dr. Cole 'they went in can cleaned out my stents they were 90" blocked" [place]/3 mon ago. COPD (chronic obstructive pulmonary disease) Intractable nausea Infarction of spleen (Acute) Abdominal pain (Acute) Generalized weakness (Acute) Gastritis Encounter for pre-operative examination Neuropathy Mixed action and resting tremor Abnormal CT scan, chest Ground glass opacities 06/15/2023 Allergic rhinitis MACIEL (dyspnea on exertion) History of sinusitis History of tobacco use Chronic back pain greater than 3 months duration Pulmonary nodule seen on imaging study History of COVID-19 Encounter for pre-operative examination Sensorineural hearing loss (SNHL) Chronic rhinitis Excessive cerumen in both ear canals Acid reflux Seasonal allergies Asthma Hypertension Heart disease Action tremor (Chronic) Vitamin B12 deficiency Tremor TIA (transient ischemic attack) Restless leg syndrome Lumbar radiculopathy Lumbar canal stenosis Anterior leg pain History of esophageal reflux Chronic obstructive pulmonary disease Chronic asthmatic bronchitis Back pain Atrial fibrillation GERD (gastroesophageal reflux disease) Medical History Epigastric abdominal pain Neuropathy Enlarged prostate History of sinusitis History of COVID-19 Tremor Osteoarthritis Spinal stenosis DDD (degenerative disc disease) GERD (gastroesophageal reflux disease) Hearing deficit AAA (abdominal aortic aneurysm) Atrial fibrillation CAD (coronary artery disease) HLD (hyperlipidemia) HTN (hypertension) COPD (chronic obstructive pulmonary disease) Asthma Surgical History History of cardioversion H/O eye surgery History of sinus surgery History of right knee surgery History of esophagogastroduodenoscopy (EGD) History of colonoscopy History of cardiac catheterization Presence of Watchman left atrial appendage closure device History of cardiac radiofrequency ablation Family History Mother Brain tumor Sister Cancer Other No family history of adverse response to anesthesia No family history of bleeding disorder Social History Smoking Status: Former smoker Tobacco Type: Cigarettes Age Started Using Tobacco: 12; Age Quit Using Tobacco: 62; packs per day: 1.5; Second Hand Exposure: Yes (AT WORK/MOTHER SMOKED); Do You Dip or Chew Tobacco: No (hx off and on for 10 yr/ quit > 1 yr ago.); Hx Alcohol Use: Yes (hx heavy/11 yr ago) Hx Substance Use: No Preferred Language: Occitan Communication Ability: Effective Hearing Ability: Use of Hearing Aid 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 No vomiting, diarrhea, melena, hematochezia -no urinary retention, no urinary incontinence, no dysuria, no hematuria Musculoskeletal-no joint pain, no muscle tenderness Skin-no bruising, no rashes, no pruritus Neuro-no isolated weakness, no paresthesia, no weakness Psych-no depression, no anxiety Physical Exam 2 Physical Exam: General-alert and oriented x3, no fever, no chills HEENT-head atraumatic and normocephalic, pupils equal and reactive to light, extraocular muscles intact Neck-no lymphadenopathy or thyromegaly, trachea midline Chest-clear to auscultation. No rales, wheezing or rhonchi Cardiac-regular rate and rhythm, normal S1 and S2 Abdomen-normal bowel sounds, no hepatosplenomegaly Extremities-no cyanosis, clubbing, or edema Neuro-cranial nerves II through XII intact, motor and sensory function within normal limits, strength symmetrical, no focal deficits Psych-irritated affect Results & Data Results & Data Vital Signs (Past 12 Hours) Vital Signs Temp Pulse Pulse Resp BP BP Pulse Ox 05/23/24 14:15 68 18 05/23/24 14:07 130/88 05/23/24 12:51 65 12 97 05/23/24 12:18 68 16 97 05/23/24 11:16 98 05/23/24 11:00 62 15 96 05/23/24 10:48 63 15 99 05/23/24 09:29 68 05/23/24 09:27 67 16 141/76 H 97 05/23/24 09:01 141/76 H 05/23/24 08:50 36.5 C 86 20 111/46 L 95 O2 Del Method 05/23/24 14:15 05/23/24 14:07 05/23/24 12:51 05/23/24 12:18 05/23/24 11:16 05/23/24 11:00 05/23/24 10:48 05/23/24 09:29 05/23/24 09:27 Room Air 05/23/24 09:01 05/23/24 08:50 Laboratory Results 05/23/24 10:16 05/23/24 11:31 PG Care Time/CCT Total # of Minutes Spent Total Time Spent with Patient: Total time spent is greater than 50% in coordination of care (as documented) at patient's floor/unit and/or counseling patient: Coding Level of Care Code 19610 INT INP/OBS CARE 3/75MIN Diagnoses Intractable nausea R11.0 Gastritis K29.70 Hypertension I10 COPD (chronic obstructive pulmonary disease) J44.9 CAD (coronary artery disease) I25.10
[2024-05-23] MEDS ORDERED: ACETAMINOPHEN 325 MG TAB PO PRN (16:18)
[2024-05-23] MEDS ORDERED: ALBUTEROL 0.083% NEBU SOLN 3 ML VIAL INH PRN (16:18)
[2024-05-23] MEDS ORDERED: ONDANSETRON INJ 2 MG/ML 2 ML VIAL IV PRN (16:18)
[2024-05-23] MEDS: SODIUM CHLORIDE 0.9% 1,000 ML IV SCH (16:36)
[2024-05-23] MEDS ORDERED: Nursing to Pharmacy Communication SCH (16:45)
[2024-05-23] MEDS: METOCLOPRAMIDE HCL INJ 5 MG/ML 2 ML VIAL IV SCH (16:55)
[2024-05-23] MEDS: traMADol HCL 50 MG TABLET PO PRN (16:58)
[2024-05-23] MEDS: PREGABALIN 100 MG CAP PO SCH (16:59)
[2024-05-23] MEDS: GABAPENTIN 300 MG CAP PO SCH (17:10)
[2024-05-23] MEDS: SUCRALFATE 1 GM/10 ML UDC PO SCH (17:11)
[2024-05-23] MEDS: traZODone HCL 50 MG TAB PO SCH (20:45)
[2024-05-23] MEDS: EZETIMIBE 10 MG TAB PO SCH (20:45)
[2024-05-23] MEDS: PANTOprazole 40 MG in SYRINGE 0 ML IV SCH (20:46)
[2024-05-23] MEDS ORDERED: PREGABALIN 100 MG CAP PO SCH (21:00)
[2024-05-23] MEDS ORDERED: GABAPENTIN 300 MG CAP PO SCH (21:00)
[2024-05-24 07:40] LABS: Basophils # (auto) 0.02 K/uL (0.00-0.20); Basophils % (auto) 0.5 %; Eosinophils # (auto) 0.05 K/uL (0.00-0.50); Eosinophils % (auto) 1.3 %; Hematocrit (blood only) 32.1 % (42.0-52.0); Hemoglobin 10.8 g/dl (14.0-18.0); Immature Granulocytes # (auto) 0.02 K/uL (0.01-0.20); Immature Granulocytes % (auto) 0.5 %; Lymphocytes % (auto) 43.1 %; Mean Corpuscular Hemoglobin 28.3 pg (25.0-34.0); Mean Corpuscular Hgb Conc 33.6 g/dL (32.0-36.0); Mean Platelet Volume 10.2 fL (9.4-12.4); Monocytes # (auto) 0.61 K/uL (0.11-0.59); Monocytes % (auto) 16.4 %; Neutrophils # (auto) 1.41 K/uL (1.40-6.50); Neutrophils % (auto) 38.2 %; Platelet Count 145 K/uL (130-400); RDW Coefficient of Variation 16.4 % (11.5-14.5); RDW Standard Deviation 50.2 fL (36.4-46.3); Red Blood Count 3.82 M/uL (4.70-6.10); White Blood Count 3.71 K/ul (4.8-10.8)
[2024-05-24 07:43] LABS: BUN Creatinine Ratio 12.6 (10-20); Calcium 8.5 mg/dl (8.6-10.3); Creatinine Clr Calc Pharmacy 73.1 ml/min; Est GFR (African American) 82.6 ml/min; Est GFR (Non-African American) 71.2 ml/min
[2024-05-24] MEDS: amLODIPine BESYLATE 5 MG TAB PO SCH (08:02)
[2024-05-24] MEDS: TAMSULOSIN HCL 0.4 MG CAP PO SCH (08:03)
[2024-05-24] MEDS: CLOPIDOGREL BISULFATE 75 MG TAB PO SCH (08:03)
[2024-05-24] MEDS: MONTELUKAST SODIUM 10 MG TABLET PO SCH (08:03)
--- NOTE | 2024-05-24 12:18 | Discharge Summary ---
Date of Service May 24, 2024 Admission HPI Per Admitting Provider 74-year-old white male with persistent nausea for the past 2 weeks. He denies melena or hematochezia. He has a history of gastritis apparently. He has been taking Protonix and Carafate apparently. Incidental finding of small infrarenal aneurysm and splenic infarct on CT scan of no current clinical significance. He is irritated that he has been asked to stay. " Nobody told me I had to stay". GI consult requested. Principal Diagnosis Intractable nausea, suspected acute gastritis Discharge Exam General-alert and oriented x3, no fever, no chills HEENT-head atraumatic and normocephalic, pupils equal and reactive to light, extraocular muscles intact Neck-no lymphadenopathy or thyromegaly, trachea midline Chest-clear to auscultation. No rales, wheezing or rhonchi Cardiac-regular rate and rhythm, normal S1 and S2 Abdomen-normal bowel sounds, no hepatosplenomegaly Extremities-no cyanosis, clubbing, or edema Neuro-cranial nerves II through XII intact, motor and sensory function within normal limits, strength symmetrical, no focal deficits Psych-irritated affect Discharge Data Allergies Allergy/AdvReac Type Severity Reaction Status Date / Time Iodinated Contrast Media Allergy Mild Hives Verified 04/26/24 12:31 house dust mite Allergy Unknown Per Verified 04/26/24 12:31 allergy testing levalbuterol Allergy Unknown Dyspnea, Verified 04/26/24 12:31 elevated heart rate ? - pt doesn't remember mold Allergy Unknown Per Verified 04/26/24 12:31 allergy testing ragweed pollen Allergy Unknown Per Verified 04/26/24 12:31 allergy testing albuterol [From Combivent] AdvReac Unknown Heart Verified 04/26/24 12:31 racing ipratropium [From Combivent] AdvReac Unknown Heart Verified 04/26/24 12:31 racing lisinopril AdvReac Unknown Cough Verified 04/26/24 12:31 Consultations 05/23/24 13:30 ED Decision to Admit Stat 05/23/24 16:18 Consult Gastroenterology Routine Ordered Studies 05/23/24 09:33 CT Abd and Pelvis [CT abd pelvis IV con only] Stat CT head/brain wo con Stat Hospital Course (1) Intractable nausea: Resolved with scheduled intravenous Reglan, IV Protonix, oral sucralfate. Treated for suspected gastritis (2) Gastritis: Protonix and Carafate therapy. GI consultation pending. (3) Hypertension: Stable. Continue current medical management (4) COPD (chronic obstructive pulmonary disease): Stable. Continue current medical management (5) CAD (coronary artery disease): Stable. Continue current medical management Plan Home today, May 24, on Protonix and Carafate therapy. Reglan as needed for nausea Total Time Total Time Spent Total Time Spent (In Minutes): 45 minutes Discharge Plan Discharge Items Patient Disposition: Home - Self-Care Reason For Visit: INTRACTABLE NAUSEA, SUSPECTED GASTRITIS Discharge Diagnosis: Intractable nausea, suspected acute gastritis Activity: Resume your previous activity Non-emergency contact: Primary Care Provider Call non-emergency contact if: your symptoms worsen Follow-up/Referrals: Manish Price [Primary Care Provider] - Diet: Regular and Heart Healthy Addtl Attending Provider Instructions: Take Protonix twice daily. Take Carafate on an empty stomach 3 or 4 times daily. Use Reglan as needed for nausea Pending Studies at Discharge: No Stand-Alone Forms: [email or web address], Smoking Cessation Medications and DC Order Prescriptions: New metoclopramide HCl 5 mg tablet 5 mg PO Q6H PRN (Reason: nausea ) Qty: 30 0RF pantoprazole [Protonix] 40 mg tablet,delayed release (DR/EC) 40 mg PO BID Qty: 60 0RF sucralfate [Carafate] 1 gram tablet 1 g PO ACHS Qty: 60 0RF Continued albuterol sulfate 2.5 mg /3 mL (0.083 %) solution for nebulization 2.5 mg inhalation Q4H PRN (Reason: shortness of breath or wheezing) Qty: 180 5RF albuterol sulfate [ProAir HFA] 90 mcg/actuation HFA aerosol inhaler 2 puff INHALATION Q6H PRN (Reason: Wheezing) Qty: 6.7 3RF baclofen 10 mg tablet 10 mg PO BID PRN (Reason: leg pain /Muscle Spasm) Qty: 60 5RF primidone 50 mg tablet 50 mg PO DAILY PRN (Reason: tremors ) Qty: 30 5RF pregabalin 200 mg capsule 200 mg PO BID 30 Days Qty: 60 5RF tramadol 50 mg tablet 100 mg PO BID PRN (Reason: pain) 30 Days Qty: 120 5RF Rx Instructions: must last 30 days rosuvastatin 40 mg tablet 40 mg PO QPM azelastine 137 mcg (0.1 %) aerosol,spray 2 spray intranasal BID Qty: 30 1RF Rx Instructions: administer into each nostril clopidogrel 75 mg tablet 75 mg PO QAM trazodone 50 mg tablet 50 mg PO UD PRN (Reason: Sleep) polyethylene glycol 3350 [Miralax] 17 gram/dose powder 17 g PO QAM psyllium husk [Metamucil] 0.4 gram capsule 0.4 g PO QAM (DME) Flutter Valve Device See Rx Instructions .ROUTE .MEDSUPPLY Qty: 1 0RF Rx Instructions: Use after nebulizer treatment and as needed during the day amlodipine 10 mg tablet 10 mg PO QAM gabapentin 300 mg capsule 300 mg PO BID 30 Days Qty: 60 5RF Linzess 290 mcg capsule 290 mcg PO DAILY Qty: 90 3RF Anoro Ellipta 62.5-25 mcg/actuation blister with device 1 inh inhalation DAILY Qty: 60 3RF multivitamin Tablet 1 tab PO QAM aspirin 81 mg Tablet,Delayed Release (Dr/Ec) 81 mg PO QAM fexofenadine-pseudoephedrine 60-120 mg tablet extended release 12 hr 1 tab PO UD PRN (Reason: allergy symptoms) ezetimibe 10 mg Tablet 10 mg PO QPM hydrochlorothiazide 12.5 mg Tablet 12.5 mg PO UD Rx Instructions: 12.5 po qam. Per pt he said he takes the medication last filled 90 day supply 10/18/23 montelukast 10 mg Tablet 10 mg PO QAM spironolacton-hydrochlorothiaz 25-25 mg tablet 1 tab PO DAILY Rx Instructions: filled 03/01/24 90 day supply. Per pt he said he take this medication tamsulosin 0.4 mg capsule 0.4 mg PO QAM Discontinued pantoprazole 40 mg tablet,delayed release (DR/EC) See Rx Instructions PO DAILY Qty: 90 3RF Rx Instructions: 1/2 hour prior to breakfast PO daily; sucralfate 1 gram tablet 1 g PO Q6H PRN (Reason: abdominal discomfort) Qty: 120 3RF Discharge Orders: Discharge Order (Routine); Ordered 05/24/24 Ordered By: Manish Sexton Admission Data Admit Date/Time: 05/23/24 14:01 Attending Provider: Manish Sexton Admit Provider: Manish Sexton Primary Care Provider: Manish Price Other Providers: Manish Sexton; Tj Mi; Joe Collins; Sally Soni; Juany Guillermo; Divine Vazquez; Shasha Keller; Blanca Rich; Uriel Salas; Rhina Bullard; Jeremy Beckett; Tony Ansari; Isa Hill; Lyudmila Lancaster; Dana Santacruz; Cathryn Tan; Eric Araujo; Valeriy Patel; John Vega; Marnie Bowens; Shivani Flood Jr; Stuart Abraham.; Donte De; Tomás Bruce; Lv Cruz; Margie Daugherty; Nakul Glynn I Coding Level of Care Code 67748 INP/OBS DISCH >30 MIN Diagnoses Intractable nausea R11.0 Gastritis K29.70 Hypertension I10 COPD (chronic obstructive pulmonary disease) J44.9 CAD (coronary artery disease) I25.10
--- NOTE | 2024-05-24 12:47 | Gastrointestinal Consultation ---
Date of Consultation May 24, 2024 Assessment & Plan (1) Gastroenteritis: -Continue Protonix 40 mg daily -Continue Zofran 4 mg q 6 hr prn -OK to complete 10 day course of Carafate 1 gm QID -Treatment of non-GI issues per primary team Supervising Physician Co-Signing Physician Notes I personally saw and examined the patient. I have reviewed the chart and agree with the documentation provided by the PROMOTIONS EXECUTIVE including discussion about the assessment, treatment and plan. Briefly, 74 yo male with nausea, abdominal pain and weakness x 1 month. He notes he initially sought evaluation in [place]. At [facility] in the ED, he was noted to have gastroenteritis on CT scan. + AAA infrarenal 3.1 Eating soft diet and liquids. EGD done in past 12/25 with gastritis. Feeling better today and able to tolerate diet. Ga stroenteritis ddx and suggest supportive care. Zofran prn and pantoprazole qd. Small frequent meals (4-5 per day) with 1 liquid. History of Present Illness Reason for Consultation: Intractable nausea, gastritis Attending Physician: Manish Sexton MD History of Present Illness Patient is a 74 yo male with nausea, abdominal pain and weakness x 1 month. He notes he initially sought evaluation in [place]. At [facility] in the ED, he was noted to have gastroenteritis on CT scan. He was also noted to have an infrarenal aneurysm and splenic infarct as well as a 3.1 cm AAA. GI is consulted for "intractable nausea." At the time of my evaluation patient notes resolution of his nausea and is preparing for discharge. Patient has been on PPI & antiemetics while here. He follows with Sally ELIAS for gastritis/GERD issues. Last EGD in 12/2023. Allergies Allergy/AdvReac Type Severity Reaction Status Date / Time Iodinated Contrast Media Allergy Mild Hives Verified 04/26/24 12:31 house dust mite Allergy Unknown Per Verified 04/26/24 12:31 allergy testing levalbuterol Allergy Unknown Dyspnea, Verified 04/26/24 12:31 elevated heart rate ? - pt doesn't remember mold Allergy Unknown Per Verified 04/26/24 12:31 allergy testing ragweed pollen Allergy Unknown Per Verified 04/26/24 12:31 allergy testing albuterol [From Combivent] AdvReac Unknown Heart Verified 04/26/24 12:31 racing ipratropium [From Glisten] AdvReac Unknown Heart Verified 04/26/24 12:31 racing lisinopril AdvReac Unknown Cough Verified 04/26/24 12:31 Home Medications Medication Instructions Recorded Confirmed Type amlodipine 10 mg tablet 10 mg PO QAM 07/17/20 05/23/24 History rosuvastatin 40 mg tablet 40 mg PO QPM 07/17/20 05/23/24 History multivitamin 1 tab PO QAM 03/26/21 05/23/24 History aspirin 81 mg tablet,delayed 81 mg PO QAM 05/28/21 05/23/24 History release Flutter Valve #1 ea 10/06/22 04/26/24 Rx azelastine 137 mcg (0.1 %) nasal 2 spray intranasal BID #30 mL 03/11/23 05/23/24 Rx spray clopidogrel 75 mg tablet 75 mg PO QAM 07/01/23 05/23/24 History albuterol sulfate 2.5 mg/3 mL 2.5 mg (3 mL) inhalation Q4H PRN 07/07/23 05/23/24 Rx (0.083 %) solution for nebulization shortness of breath or wheezing #180 mL albuterol sulfate 90 mcg/actuation 2 puff inhalation Q6H PRN Wheezing 11/03/23 05/23/24 Rx aerosol inhaler (ProAir HFA) #6.7 grams polyethylene glycol 3350 17 17 g PO QAM 12/09/23 05/23/24 History gram/dose oral powder (Miralax) psyllium husk 0.4 gram capsule 0.4 g PO QAM 12/09/23 05/23/24 History (Metamucil) trazodone 50 mg tablet 50 mg PO UD PRN Sleep 12/09/23 05/23/24 History ezetimibe 10 mg tablet 10 mg PO QPM 12/14/23 05/23/24 History fexofenadine 60 mg-pseudoephedrine 1 tab PO UD PRN allergy symptoms 12/14/23 05/23/24 History ER 120 mg tablet,ext.release,12 hr hydrochlorothiazide 12.5 mg tablet 12.5 mg PO UD 12/14/23 05/23/24 History montelukast 10 mg tablet 10 mg PO QAM 12/14/23 05/23/24 History linaclotide 290 mcg capsule 290 mcg PO DAILY #90 caps 12/28/23 05/23/24 Rx (Linzess) gabapentin 300 mg capsule 300 mg PO BID 30 days #60 caps 01/06/24 05/23/24 Rx baclofen 10 mg tablet 10 mg PO BID PRN leg pain /Muscle 03/07/24 05/23/24 Rx Spasm #60 tabs pregabalin 200 mg capsule 200 mg PO BID 30 days #60 caps 03/07/24 05/23/24 Rx primidone 50 mg tablet 50 mg PO DAILY PRN tremors #30 03/07/24 05/23/24 Rx tabs tramadol 50 mg tablet 100 mg (2 x 50 mg) PO BID PRN pain 03/07/24 05/23/24 Rx 30 days #120 tabs umeclidinium 62.5 mcg-vilanterol 1 inh inhalation DAILY #60 ea 03/17/24 05/23/24 Rx 25 mcg/actuation powdr for inhalation (Anoro Ellipta) spironolactone 25 1 tab PO DAILY 05/23/24 05/23/24 History mg-hydrochlorothiazide 25 mg tablet tamsulosin 0.4 mg capsule 0.4 mg PO QAM 05/23/24 05/23/24 History metoclopramide HCl 5 mg tablet 5 mg PO Q6H PRN nausea #30 tabs 05/24/24 Rx pantoprazole 40 mg tablet,delayed 40 mg PO BID #60 tabs 05/24/24 Rx release (Protonix) sucralfate 1 gram tablet (Carafate) 1 g PO ACHS #60 tabs 05/24/24 Rx Patient History Medical History Epigastric abdominal pain Neuropathy Enlarged prostate History of sinusitis History of COVID-19 Tremor Osteoarthritis Spinal stenosis DDD (degenerative disc disease) GERD (gastroesophageal reflux disease) Hearing deficit AAA (abdominal aortic aneurysm) Atrial fibrillation CAD (coronary artery disease) HLD (hyperlipidemia) HTN (hypertension) COPD (chronic obstructive pulmonary disease) Asthma Surgical History History of cardioversion H/O eye surgery History of sinus surgery History of right knee surgery History of esophagogastroduodenoscopy (EGD) History of colonoscopy History of cardiac catheterization Presence of Watchman left atrial appendage closure device History of cardiac radiofrequency ablation Family History Mother Brain tumor Sister Cancer Other No family history of adverse response to anesthesia No family history of bleeding disorder Social History Smoking Status: Former smoker Tobacco Type: Cigarettes Age Started Using Tobacco: 12; Age Quit Using Tobacco: 62; packs per day: 1.5; Second Hand Exposure: Yes (AT WORK/MOTHER SMOKED); Do You Dip or Chew Tobacco: No (hx off and on for 10 yr/ quit > 1 yr ago.); Hx Alcohol Use: Yes Alcohol type: beer and hard liquor Hx Substance Use: No Preferred Language: Niuean Communication Ability: Effective Hearing Ability: Use of Hearing Aid Foundation Director Required: No Beliefs That Will Affect Care: None Current Living Situation: Significant Other current occupational status: retired Feels Safe at Home: Yes Assistive Devices: Cane, Walker and Wheelchair Review of Systems Constitutional: no fever Respiratory: no cough and no dyspnea Cardiovascular: no chest pain Gastrointestinal: no abdominal pain, no nausea and no vomiting symptoms resolved at present Physical Exam Constitutional: well developed Respiratory: normal respiratory effort Cardiovascular: Rate/Rhythm: regular rate Gastrointestinal (Abdomen): Inspection/Auscultation: abdomen normal to inspection and normal bowel sounds Percussion/Palpation: abdomen soft; abdomen nontender Results & Data Vital Signs (Past 12 Hours) Vital Signs Temp Pulse Resp BP Pulse Ox O2 Del Method 05/24/24 07:26 36.5 C 60 16 106/66 96 Room Air PG Care Time/CCT Total # of Minutes Spent Total Time Spent with Patient: Total time spent is greater than 50% in coordination of care (as documented) at patient's floor/unit and/or counseling patient: Coding Level of Care Code 16688 INT INP/OBS CARE 3/75MIN Diagnoses Gastroenteritis K52.9
== END 2024-05-24 13:56 | disposition home or self-care (01) ==
LOC: SUATTDRO → ED 08:48 → 3W 08:48

== ENCOUNTER 2024-05-29 08:48 | Inpatient (IN) ==
[2024-05-29] MEDS ORDERED: SODIUM CHLORIDE 0.9% 250 ML IV PRN (08:58)
[2024-05-29] MEDS: SODIUM CHLORIDE 0.9% 1,000 ML IV SCH (09:08)
--- NOTE | 2024-05-29 09:23 | XRay Report ---
XR chest 1V portable HISTORY: 74 years-old Male Sepsis COMPARISON: 07/29/2023 CT TECHNIQUE: AP view of the chest FINDINGS: Cardiomediastinal and hilar silhouettes are within normal limits. Emphysema without pneumothorax, ple ural effusion or airspace consolidation. The bones appear grossly intact. Partially imaged spinal sti mulator leads project over the thoracic spine. IMPRESSION: Emphysema without acute process. ACT 112: Negative or not required by law. The above report was generated using voice recognition software. It may contain grammatical, syntax o r spelling errors. Electronically signed by: Esa Viera M.D. 05/29/2024 9:22 AM
[2024-05-29 09:28] LABS: iSTAT Creatinine 1.6 mg/dl (0.6-1.3); iSTAT Hemoglobin 12.2 g/dl (14.0-18.0); iSTAT Ionized Calcium 1.03 mmol/l (1.12-1.32); iSTAT Potassium 3.7 mmol/L (3.3-5.0)
[2024-05-29 09:53] LABS: Alanine Aminotransferase 104 U/L (7-52); Albumin Level 3.6 gm/dl (3.4-5.0); Alkaline Phosphatase 87 U/L (34-104); Anion Gap 9 (3-11); BUN Creatinine Ratio 18.2 (10-20); Bilirubin,Total 1.4 mg/dl (0.2-1.0); Blood Urea Nitrogen 26 mg/dl (6-23); Calcium 8.5 mg/dl (8.6-10.3); Carbon Dioxide 22 mmol/L (21-32); Chloride 96 mmol/L (98-107); Creatinine Clr Calc Pharmacy 52.2 ml/min; Est GFR (African American) 55.5 ml/min; Est GFR (Non-African American) 47.9 ml/min; Glucose 137 mg/dl (70-99(Fasting)); Magnesium 2.4 mg/dl (1.7-2.4); Sodium 127 mmol/L (136-145); Total Protein 6.7 gm/dl (6.0-8.3)
[2024-05-29 09:54] LABS: Troponin I High Sensitivity 9.1 pg/ml (0-20)
[2024-05-29 10:00] LABS: Hematocrit (blood only) 34.5 % (42.0-52.0); Hemoglobin 11.8 g/dl (14.0-18.0); Mean Corpuscular Hemoglobin 27.8 pg (25.0-34.0); Mean Corpuscular Hgb Conc 34.2 g/dL (32.0-36.0); Mean Corpuscular Volume 81.4 fL (80.0-100.0); Mean Platelet Volume 11.7 fL (9.4-12.4); Platelet Count 61 K/uL (130-400); RDW Coefficient of Variation 16.3 % (11.5-14.5); RDW Standard Deviation 48.1 fL (36.4-46.3); Red Blood Count 4.24 M/uL (4.70-6.10); White Blood Count 4.29 K/ul (4.8-10.8)
[2024-05-29] MEDS: AZITHROMYCIN 500 MG in DEXTROSE 5% 250 ML IV STA (10:29)
[2024-05-29 10:31] LABS: Basophils # (auto) 0.01 K/uL (0.00-0.20); Basophils % (auto) 0.2 %; Eosinophils # (auto) 0.01 K/uL (0.00-0.50); Eosinophils % (auto) 0.2 %; Immature Granulocytes # (auto) 0.02 K/uL (0.01-0.20); Immature Granulocytes % (auto) 0.5 %; Lymphocytes # (auto) 1.58 K/uL (1.20-3.40); Lymphocytes % (auto) 36.8 %; Monocytes # (auto) 0.77 K/uL (0.11-0.59); Monocytes % (auto) 17.9 %; Neutrophils % (auto) 44.4 %
[2024-05-29 10:33] LABS: Adenovirus PCR Not Detected (NotDetected); Bordetella parapertussis PCR Not Detected (NotDetected); Bordetella pertussis PCR Not Detected (NotDetected); Chlamydia pneumoniae PCR Not Detected (NotDetected); Coronavirus 229E PCR Not Detected (NotDetected); Coronavirus CoV-2 (COVID19)PCR Not Detected (NotDetected); Coronavirus HKU1 PCR Not Detected (NotDetected); Coronavirus NL63 PCR Not Detected (NotDetected); Coronavirus OC43PCR Not Detected (NotDetected); Human Metapneumovirus PCR Not Detected (NotDetected); Influenza A PCR Not Detected (NotDetected); Influenza B PCR Not Detected (NotDetected); Mycoplasma pneumoniae PCR Not Detected (NotDetected); Parainfluenza Virus 1 PCR Not Detected (NotDetected); Parainfluenza Virus 2 PCR Not Detected (NotDetected); Parainfluenza Virus 3 PCR Not Detected (NotDetected); Parainfluenza Virus 4 PCR Not Detected (NotDetected); Respiratory Syncytial VirusPCR Not Detected (NotDetected); Rhinovirus/Enterovirus PCR Not Detected (NotDetected)
--- NOTE | 2024-05-29 10:40 | History & Physical Report ---
Date of Service May 29, 2024 Assessment & Plan (1) Babesiosis: Plan: Parasitemia % pending Azithromycin 500mg IV daily + Atovaquone 750mg PO BID Consult infectious disease for ongoing recommendations (2) Acute hyponatremia: Plan: Suspect secondary to poor oral intake and HCTZ use Hold HCTZ Continue NSS IV fluids overnight (3) Acute hypotension: Plan: Resolved with IV fluids Hold anti-hypertensives Plan VTE Prophylaxis - SCDs, chemical deferred due to thrombocytopenia Diet - regular Disposition - admit to PCU Admission and Anticipated Discharge Date Admission Date: May 29, 2024 History of Present Illness Chief Complaint: Abdominal pain, nausea, vomiting, chills Primary Care Provider: Manish Dennis is a 74 year old male who presents to the ER with nausea, vomiting, generalized weakness, lightheadedness, chills. All symptoms started on May 14 although the right leg pain has been chronic from a neuropathy for which he takes gabapentin and pregabalin but is just worse than usual. lightheadedness like he was going to pass out, weak, feels nauseous but no vomiting. Mild abdominal pain although he reports this isn't new and he carries a diagnosis of irritable bowel syndrome but again is worse than usual with this illness. He has lost his appetite and is eating little with his last bowel movement 4 days ago although he denies any hard stool. No melena, hematochezia, dysphagia or odynophagia. Continues to feels nauseous. Mild chest pressure on deep breathing but denies pain which has been present throughout entire illness. No shortness of breath but also just not doing much. He reports his amlodipine was reduced in half due to low BP a few months ago. He took all his morning medications. Allergies Allergy/AdvReac Type Severity Reaction Status Date / Time Iodinated Contrast Media Allergy Mild Hives Verified 05/29/24 10:39 house dust mite Allergy Unknown Per Verified 05/29/24 10:39 allergy testing levalbuterol Allergy Unknown Dyspnea, Verified 05/29/24 10:39 elevated heart rate ? - pt doesn't remember mold Allergy Unknown Per Verified 05/29/24 10:39 allergy testing ragweed pollen Allergy Unknown Per Verified 05/29/24 10:39 allergy testing albuterol [From Combivent] AdvReac Unknown Heart Verified 05/29/24 10:39 racing ipratropium [From Combivent] AdvReac Unknown Heart Verified 05/29/24 10:39 racing lisinopril AdvReac Unknown Cough Verified 05/29/24 10:39 Home Medications Medication Instructions Recorded Confirmed Type amlodipine 10 mg tablet 5 mg PO QAM 07/17/20 05/29/24 History rosuvastatin 40 mg tablet 40 mg PO QPM 07/17/20 05/29/24 History multivitamin 1 tab PO QAM 03/26/21 05/29/24 History aspirin 81 mg tablet,delayed 81 mg PO QAM 05/28/21 05/29/24 History release Flutter Valve #1 ea 10/06/22 04/26/24 Rx azelastine 137 mcg (0.1 %) nasal 2 spray intranasal BID #30 mL 03/11/23 05/29/24 Rx spray clopidogrel 75 mg tablet 75 mg PO QAM 07/01/23 05/29/24 History albuterol sulfate 2.5 mg/3 mL 2.5 mg (3 mL) inhalation Q4H PRN 07/07/23 05/29/24 Rx (0.083 %) solution for nebulization shortness of breath or wheezing #180 mL albuterol sulfate 90 mcg/actuation 2 puff inhalation Q6H PRN Wheezing 11/03/23 05/29/24 Rx aerosol inhaler (ProAir HFA) #6.7 grams polyethylene glycol 3350 17 17 g PO QAM 12/09/23 05/29/24 History gram/dose oral powder (Miralax) psyllium husk 0.4 gram capsule 0.4 g PO QAM 12/09/23 05/29/24 History (Metamucil) trazodone 50 mg tablet 50 mg PO HS PRN Sleep 12/09/23 05/29/24 History ezetimibe 10 mg tablet 10 mg PO QPM 12/14/23 05/29/24 History fexofenadine 60 mg-pseudoephedrine 1 tab PO UD PRN allergy symptoms 12/14/23 05/29/24 History ER 120 mg tablet,ext.release,12 hr montelukast 10 mg tablet 10 mg PO QAM 12/14/23 05/29/24 History linaclotide 290 mcg capsule 290 mcg PO DAILY #90 caps 12/28/23 05/29/24 Rx (Linzess) gabapentin 300 mg capsule 300 mg PO BID 30 days #60 caps 01/06/24 05/29/24 Rx baclofen 10 mg tablet 10 mg PO BID PRN leg pain /Muscle 03/07/24 05/29/24 Rx Spasm #60 tabs pregabalin 200 mg capsule 200 mg PO BID 30 days #60 caps 03/07/24 05/29/24 Rx tramadol 50 mg tablet 100 mg (2 x 50 mg) PO BID PRN pain 03/07/24 05/29/24 Rx 30 days #120 tabs umeclidinium 62.5 mcg-vilanterol 1 inh inhalation DAILY #60 ea 03/17/24 05/29/24 Rx 25 mcg/actuation powdr for inhalation (Anoro Ellipta) spironolactone 25 1 tab PO DAILY 05/23/24 05/29/24 History mg-hydrochlorothiazide 25 mg tablet tamsulosin 0.4 mg capsule 0.4 mg PO QAM 05/23/24 05/29/24 History metoclopramide HCl 5 mg tablet 5 mg PO Q6H PRN nausea #30 tabs 05/24/24 05/29/24 Rx pantoprazole 40 mg tablet,delayed 40 mg PO BID #60 tabs 05/24/24 05/29/24 Rx release (Protonix) sucralfate 1 gram tablet (Carafate) 1 g PO ACHS #60 tabs 05/24/24 05/29/24 Rx primidone 50 mg tablet 50 mg PO DAILY PRN tremors 05/29/24 05/29/24 History Past Med/Surg History Problem List (Updated 05/29/24 @ 14:48 by Av Rodriguez MD) Acute hyponatremia (Acute) Babesiosis (Acute) Acute hypotension (Acute) Babesiosis Gastroenteritis Intractable nausea Abdominal pain (Acute) Generalized weakness (Acute) Gastritis Encounter for pre-operative examination Neuropathy Mixed action and resting tremor Abnormal CT scan, chest Ground glass opacities 06/15/2023 Allergic rhinitis MACIEL (dyspnea on exertion) History of sinusitis History of tobacco use Chronic back pain greater than 3 months duration Pulmonary nodule seen on imaging study History of COVID-19 Encounter for pre-operative examination Sensorineural hearing loss (SNHL) Chronic rhinitis Excessive cerumen in both ear canals Acid reflux Seasonal allergies Asthma Heart disease Action tremor (Chronic) Vitamin B12 deficiency Tremor TIA (transient ischemic attack) Restless leg syndrome Lumbar radiculopathy Lumbar canal stenosis Anterior leg pain History of esophageal reflux Chronic obstructive pulmonary disease Chronic asthmatic bronchitis Back pain Atrial fibrillation GERD (gastroesophageal reflux disease) Medical History Epigastric abdominal pain Neuropathy Enlarged prostate History of sinusitis History of COVID-19 Tremor Osteoarthritis Spinal stenosis DDD (degenerative disc disease) GERD (gastroesophageal reflux disease) Hearing deficit AAA (abdominal aortic aneurysm) Atrial fibrillation CAD (coronary artery disease) HLD (hyperlipidemia) HTN (hypertension) COPD (chronic obstructive pulmonary disease) Asthma Surgical History History of cardioversion H/O eye surgery History of sinus surgery History of right knee surgery History of esophagogastroduodenoscopy (EGD) History of colonoscopy History of cardiac catheterization Presence of Watchman left atrial appendage closure device History of cardiac radiofrequency ablation Family History Mother Brain tumor Sister Cancer Other No family history of adverse response to anesthesia No family history of bleeding disorder Social History Smoking Status: Former smoker Tobacco Type: Cigarettes Age Started Using Tobacco: 12; Age Quit Using Tobacco: 62; packs per day: 1.5; Second Hand Exposure: Yes (AT WORK/MOTHER SMOKED); Do You Dip or Chew Tobacco: No (hx off and on for 10 yr/ quit > 1 yr ago.); Hx Alcohol Use: Yes Alcohol type: beer and hard liquor Hx Substance Use: No Preferred Language: Mosotho Communication Ability: Effective Hearing Ability: Use of Hearing Aid Metal Container Maker Required: No Beliefs That Will Affect Care: None Current Living Situation: Significant Other current occupational status: retired Other Information That Helps Us Care for You: No Feels Safe at Home: Yes Safety Concerns: Feels Safe At This Time Assistive Devices: Denture - Upper and Hearing Aid - Bilateral Review of Systems Review of Systems: All systems reviewed & are unremarkable except as noted in HPI & below Physical Exam Constitutional: WD/WN, vitals as above Eyes: PERRL, conjunctivae normal, anicteric sclerae ENMT: external ear and nose normal, oropharynx normal Respiratory: normal respiratory effort, lungs clear to auscultation Cardiovascular: Rate/Rhythm: regular rate and regular rhythm Heart Sounds: no murmur Extremities: normal capillary refill; no calf tenderness and no pedal edema Gastrointestinal (Abdomen): normal bowel sounds, soft, nontender, no hepatosplenomegaly Musculoskeletal: no cyanosis or clubbing, extremities motor strength 5/5 Skin: no rashes, warm and dry Neurologic: moves all extremities and awake; no focal motor deficits and not confused Psychiatric: A+Ox3, euthymic affect Genitourinary: no CVA tenderness Results & Data Results & Data Vital Signs (Past 12 Hours) Vital Signs Temp Pulse Pulse Resp BP BP Pulse Ox 05/29/24 10:20 36.2 C L 84 19 118/58 L 99 05/29/24 09:49 110/70 05/29/24 09:30 114/70 05/29/24 09:15 103/68 05/29/24 09:15 87 16 103/68 96 05/29/24 09:10 98/72 L 05/29/24 09:05 91 H 05/29/24 08:58 85 16 98 05/29/24 08:49 36.5 C 90 24 66/47 L 95 O2 Del Method 05/29/24 10:20 Room Air 05/29/24 09:49 05/29/24 09:30 05/29/24 09:15 05/29/24 09:15 Room Air 05/29/24 09:10 05/29/24 09:05 05/29/24 08:58 Room Air 05/29/24 08:49 Room Air Laboratory Results Abnormal lab results 05/29/24 05/29/24 05/29/24 Range/Units 09:06 09:07 09:16 WBC 4.29 L (4.8-10.8) K/ul RBC 4.24 L (4.70-6.10) M/uL Hgb 11.8 L (14.0-18.0) g/dl POC Hgb 12.2 L (14.0-18.0) g/dl Hct 34.5 L (42.0-52.0) % POC Hct 36 L (42-52) % RDW Std Deviation 48.1 H (36.4-46.3) fL RDW Coeff of Ivan 16.3 H (11.5-14.5) % Plt Count 61 L (130-400) K/uL Richardson # (Auto) 0.77 H (0.11-0.59) K/uL POC Sodium 130 L (135-144) mmol/L Sodium 127 L (136-145) mmol/L POC Chloride 96 L (101-112) mmol/L Chloride 96 L (98-107) mmol/L POC Total CO2 22 L (24-31) mmol/L POC BUN 31 H (7-18) mg/dl BUN 26 H (6-23) mg/dl Creatinine 1.43 H (0.6-1.4) mg/dl POC Creatinine 1.6 H (0.6-1.3) mg/dl Glucose 137 H (70-99(Fasting)) mg/dl POC Glucose (other) 136 H (70-99) mg/dl Calcium 8.5 L (8.6-10.3) mg/dl POC Ioniz Calcium Harika 1.03 L (1.12-1.32) mmol/l Total Bilirubin 1.4 H (0.2-1.0) mg/dl ALT 104 H (7-52) U/L Babesia Smear See Comment A Crossmatch See Detail Diagnostic Findings XR chest 1V portable HISTORY: 74 years-old Male Sepsis COMPARISON: 07/29/2023 CT TECHNIQUE: AP view of the chest FINDINGS: Cardiomediastinal and hilar silhouettes are within normal limits. Emphysema without pneumothorax, pleural effusion or airspace consolidation. The bones appear grossly intact. Partially imaged spinal stimulator leads project over the thoracic spine. IMPRESSION: Emphysema without acute process. ABDOMEN AND PELVIS CT WITHOUT CONTRAST CT DOSE: 1262.43 mGy.cm HISTORY: sepsis h/o AAA TECHNIQUE: Multiaxial CT images of the abdomen and pelvis were performed without contrast. A dose lowering technique was utilized adhering to the principles of ALARA. COMPARISON STUDY: Abdomen and pelvis CT 05/23/2024. FINDINGS: Splenomegaly again noted which has slightly increased in size. This measures 15.3 cm, previously measuring 14.6 cm. Mild fat stranding and trace fluid adjacent to the posterior medial aspect of the spleen is again noted. This is not significantly changed. Evaluation for splenic infarct is nondiagnostic on this noncontrast study. The spleen abuts the gastric fundus, unchanged. Mild hepatic steatosis. The unenhanced gallbladder, pancreas, adrenal glands, and kidneys are unremarkable. No hydronephrosis. Mild aneurysmal dilatation of the infrarenal abdominal aorta measures up to 3 cm. This remains unchanged. No retroperitoneal lymphadenopathy. There is a small hiatus hernia. Mild emphysema the lung bases. No acute fractures. Small fat-containing umbilical hernia. No pelvic free fluid or pelvic lymphadenopathy. Suboptimal evaluation for bowel pathology due to the lack of intravenous and oral contrast. However, there is no definite bowel wall thickening or obstruction. Normal appendix. The bladder is unremarkable. IMPRESSION: 1. Mild splenomegaly again noted which has slightly progressed. 2. There is mild fat stranding and trace fluid adjacent to the posterior medial aspect of the spleen, unchanged. There is a possible splenic infarct seen on the prior CT examination at this location. This is not well assessed on this study due to the lack of intravenous contrast. 3. No bowel wall thickening or obstruction. 4. Additional findings as described above. Medications Administered ER Medications Given: NSS 1L bolus Azithromycin 500mg IV Atovaquone 750mg PO ECG Rate (beats per minute): 91 Rhythm: normal sinus Findings: + PAC Comparison ECG Date: from (May 23, 2024) Change: the following changes noted (PACs now present) Code Status & VTE Plan Code Status Full VTE Prophylaxis Plan VTE Prophylaxis will be ordered: Yes PG Care Time/CCT Total # of Minutes Spent Total Time Spent with Patient: Total time spent is greater than 50% in coordination of care (as documented) at patient's floor/unit and/or counseling patient: Coding Level of Care Code 81763 INT INP/OBS CARE 3/75MIN Diagnoses Babesiosis B60.00 Acute hyponatremia E87.1 Acute hypotension I95.9
[2024-05-29 10:46] LABS: Appearance Urine Cloudy (Clear); Bacteria Urine Automated None Seen (None Seen); Bilirubin Urine 1+ (Negative); Blood Urine Negative (Negative); Color Urine Dark Yellow; Glucose Urine UA Negative (Negative); Granular Casts Urine Present /lpf (None Prsent); Ketones Urine Trace (Negative); Leukocyte Esterase Urine Negative (Negative); Mucus Urine Present (None Prsent); Nitrite Urine Negative (Negative); Protein Urine 1+ (Negative); Specific Gravity Urine 1.023 (1.000-1.030); Urobilinogen Urine Negative (Negative); WBC Urine Automated 0-5 /hpf (0-5); pH Urine 5.5 (4.5-7.5)
--- NOTE | 2024-05-29 10:53 | CT Scan Report ---
ABDOMEN AND PELVIS CT WITHOUT CONTRAST CT DOSE: 1262.43 mGy.cm HISTORY: sepsis h/o AAA TECHNIQUE: Multiaxial CT images of the abdomen and pelvis were performed without contrast. A dose lo wering technique was utilized adhering to the principles of ALARA. COMPARISON STUDY: Abdomen and pelvis CT 05/23/2024. FINDINGS: Splenomegaly again noted which has slightly increased in size. This measures 15.3 cm, previ ously measuring 14.6 cm. Mild fat stranding and trace fluid adjacent to the posterior medial aspect o f the spleen is again noted. This is not significantly changed. Evaluation for splenic infarct is non diagnostic on this noncontrast study. The spleen abuts the gastric fundus, unchanged. Mild hepatic st eatosis. The unenhanced gallbladder, pancreas, adrenal glands, and kidneys are unremarkable. No hydro nephrosis. Mild aneurysmal dilatation of the infrarenal abdominal aorta measures up to 3 cm. This rem ains unchanged. No retroperitoneal lymphadenopathy. There is a small hiatus hernia. Mild emphysema th e lung bases. No acute fractures. Small fat-containing umbilical hernia. No pelvic free fluid or pelv ic lymphadenopathy. Suboptimal evaluation for bowel pathology due to the lack of intravenous and oral contrast. However, there is no definite bowel wall thickening or obstruction. Normal appendix. The b ladder is unremarkable. IMPRESSION: 1. Mild splenomegaly again noted which has slightly progressed. 2. There is mild fat stranding and trace fluid adjacent to the posterior medial aspect of the spleen, unchanged. There is a possible splenic infarct seen on the prior CT examination at this location. Th is is not well assessed on this study due to the lack of intravenous contrast. 3. No bowel wall thickening or obstruction. 4. Additional findings as described above. ACT 112: Negative or not required by law. Electronically signed by: Boni Garcia M.D. 05/29/2024 10:51 AM
[2024-05-29] MEDS: ATOVAQUONE 750 MG/5 ML UDC PO STA (10:54)
[2024-05-29 11:13] LABS: Parasites Present; Platelet Estimate Decreased (Normal); Polychromasia 1+
[2024-05-29 11:15] LABS: Bilirubin Direct 0.4 mg/dl (0-0.2); Potassium 3.4 mmol/L (3.5-5.1)
[2024-05-29] MEDS ORDERED: PRIMIDONE 50 MG TAB PO PRN (12:10)
[2024-05-29 12:11] LABS: INR 1.4 (0.9-1.1); Partial Thromboplastin Ratio 1.4; Partial Thromboplastin Time 37 Seconds (21-31); Prothrombin Time 14.6 Seconds (9.0-12.0)
--- NOTE | 2024-05-29 14:41 | Infectious Disease Consult ---
Date of Consultation May 29, 2024 Assessment & Plan (1) Babesiosis: Plan This is a 74-year-old man with past medical history of CAD, COPD, pulmonary nodules recently admitted 05/23 - 05/24 with abdominal pain and nausea. He underwent a CTAP that showed an incidental finding of a small infrarenal aneurysm and splenic infarct. He was evaluated by GI and diagnosed with gastritis, he was treated with Zofran, Protonix and Carafate. He now presents on 05/29 for ongoing abdominal pain nausea, vomiting, fever., chills malaise and lightheadedness In the ED, he is afebrile, and hypotensive with a blood pressure of 66/47, HR 90. He was started on fluid resuscitation and blood pressure improved. Labs: WBC 4.29, hemoglobin 11.8,,Hematocrit 34.5,, platelets 61, alk phos 87, ALT 104, AST 99 ,procalcitonin 0.73. Red blood cell noted for inclusions concerning for babesiosis. Babesiosis PCR pending. Chest x-ray with emphysema without acute process. CTAP with mild splenomegaly which has slightly progressed; mild fat stranding and trace fluid adjacent to the posterior medial aspect of the spleen which is unchanged. There is a possible splenic infarct. He has been started on atovaquone and azithromycin for possible babesiosis.. He denies travel outside the [place], but denies tick bites. He admits to camping throughout the summer. ID consulted fr possible Babesiosis. # Possible Babesiosis # Rule out other tick borne illness # Mild splenomegaly and splenic infarct on imaging # Splenic infarct #Thrombocytopenia #Transaminitis Recommendations Continue [id number] mg po daily and atovaquone 750 mg po q12hrs for babesiosis Follow up Babesia PCR Follow up Lyme screen and Anaplasma/ Ehrlichiosis pcr ADDED doxycycline 100 mg po bid , first dose now pending r/o other tick borne disease Ordered Blood smear with Parasite percentage Follow Blood culture Thank you for this consult. ID will continue to follow Lala Senior MD, MPH Infectious Disease [facility] Call [phone] with questions. Consultation Information Consultation was provided via telemedicine using two-way real-time interactive telecommunication between the patient and the telemedicine provider. For the duration of the visit, the provider was performing the assessment from a different facility than the patient. This includesuse of bluetooth stethoscope forauscultationperformed by the telepresenter that the telemedicine provider can hear if described in the physical exam. [employer] contact information: Please call [facility] Center [phone]. (Phone Number For Physician Use Only) After establishing a telemedicine visit, patient was: Patient was verified with two unique identifiers Time Spent with Patient: Initial => 75 min History of Present Illness Reason for Consultation: babesiosis Requesting Physician: Marco Dey MD Attending Physician: Marco Dye MD History of Present Illness This is a 74-year-old man with past medical history of CAD, COPD, pulmonary nodules recently admitted 05/23 - 05/24 with abdominal pain and nausea. He underwent a CTAP that showed an incidental finding of a small infrarenal aneurysm and splenic infarct. He was evaluated by GI and diagnosed with gastritis, he was treated with Zofran, Protonix and Carafate. He now presents on 05/29 for ongoing abdominal pain nausea, vomiting, fever., chills malaise and lightheadedness In the ED, he is afebrile, and hypotensive with a blood pressure of 66/47, HR 90. He was started on fluid resuscitation and blood pressure improved. Labs: WBC 4.29, hemoglobin 11.8,,Hematocrit 34.5,, platelets 61, alk phos 87, ALT 104, AST 99 ,procalcitonin 0.73. Red blood cell noted for inclusions concerning for babesiosis. Babesiosis PCR pending. Chest x-ray with emphysema without acute process. CTAP with mild splenomegaly which has slightly progressed; mild fat s tranding and trace fluid adjacent to the posterior medial aspect of the spleen which is unchanged. There is a possible splenic infarct. He has been started on atovaquone and azithromycin for possible babesiosis.. He denies travel outside the [place]. [place], but denies tick bites. He admits to camping throughout the summer. ID consulted fr possible Babesiosis. Allergies Allergy/AdvReac Type Severity Reaction Status Date / Time Iodinated Contrast Media Allergy Mild Hives Verified 05/29/24 10:39 house dust mite Allergy Unknown Per Verified 05/29/24 10:39 allergy testing levalbuterol Allergy Unknown Dyspnea, Verified 05/29/24 10:39 elevated heart rate ? - pt doesn't remember mold Allergy Unknown Per Verified 05/29/24 10:39 allergy testing ragweed pollen Allergy Unknown Per Verified 05/29/24 10:39 allergy testing albuterol [From Combivent] AdvReac Unknown Heart Verified 05/29/24 10:39 racing ipratropium [From Combivent] AdvReac Unknown Heart Verified 05/29/24 10:39 racing lisinopril AdvReac Unknown Cough Verified 05/29/24 10:39 Home Medications Medication Instructions Recorded Confirmed Type amlodipine 10 mg tablet 5 mg PO QAM 07/17/20 05/29/24 History rosuvastatin 40 mg tablet 40 mg PO QPM 07/17/20 05/29/24 History multivitamin 1 tab PO QAM 03/26/21 05/29/24 History aspirin 81 mg tablet,delayed 81 mg PO QAM 05/28/21 05/29/24 History release Flutter Valve #1 ea 10/06/22 04/26/24 Rx azelastine 137 mcg (0.1 %) nasal 2 spray intranasal BID #30 mL 03/11/23 05/29/24 Rx spray clopidogrel 75 mg tablet 75 mg PO QAM 07/01/23 05/29/24 History albuterol sulfate 2.5 mg/3 mL 2.5 mg (3 mL) inhalation Q4H PRN 07/07/23 05/29/24 Rx (0.083 %) solution for nebulization shortness of breath or wheezing #180 mL albuterol sulfate 90 mcg/actuation 2 puff inhalation Q6H PRN Wheezing 11/03/23 05/29/24 Rx aerosol inhaler (ProAir HFA) #6.7 grams polyethylene glycol 3350 17 17 g PO QAM 12/09/23 05/29/24 History gram/dose oral powder (Miralax) psyllium husk 0.4 gram capsule 0.4 g PO QAM 12/09/23 05/29/24 History (Metamucil) trazodone 50 mg tablet 50 mg PO HS PRN Sleep 12/09/23 05/29/24 History ezetimibe 10 mg tablet 10 mg PO QPM 12/14/23 05/29/24 History fexofenadine 60 mg-pseudoephedrine 1 tab PO UD PRN allergy symptoms 12/14/23 05/29/24 History ER 120 mg tablet,ext.release,12 hr montelukast 10 mg tablet 10 mg PO QAM 12/14/23 05/29/24 History linaclotide 290 mcg capsule 290 mcg PO DAILY #90 caps 12/28/23 05/29/24 Rx (Linzess) gabapentin 300 mg capsule 300 mg PO BID 30 days #60 caps 01/06/24 05/29/24 Rx baclofen 10 mg tablet 10 mg PO BID PRN leg pain /Muscle 03/07/24 05/29/24 Rx Spasm #60 tabs pregabalin 200 mg capsule 200 mg PO BID 30 days #60 caps 03/07/24 05/29/24 Rx tramadol 50 mg tablet 100 mg (2 x 50 mg) PO BID PRN pain 03/07/24 05/29/24 Rx 30 days #120 tabs umeclidinium 62.5 mcg-vilanterol 1 inh inhalation DAILY #60 ea 03/17/24 05/29/24 Rx 25 mcg/actuation powdr for inhalation (Anoro Ellipta) spironolactone 25 1 tab PO DAILY 05/23/24 05/29/24 History mg-hydrochlorothiazide 25 mg tablet tamsulosin 0.4 mg capsule 0.4 mg PO QAM 05/23/24 05/29/24 History metoclopramide HCl 5 mg tablet 5 mg PO Q6H PRN nausea #30 tabs 05/24/24 05/29/24 Rx pantoprazole 40 mg tablet,delayed 40 mg PO BID #60 tabs 05/24/24 05/29/24 Rx release (Protonix) sucralfate 1 gram tablet (Carafate) 1 g PO ACHS #60 tabs 05/24/24 05/29/24 Rx primidone 50 mg tablet 50 mg PO DAILY PRN tremors 05/29/24 05/29/24 History Patient History Medical History Epigastric abdominal pain Neuropathy Enlarged prostate History of sinusitis History of COVID-19 Tremor Osteoarthritis Spinal stenosis DDD (degenerative disc disease) GERD (gastroesophageal reflux disease) Hearing deficit AAA (abdominal aortic aneurysm) Atrial fibrillation CAD (coronary artery disease) HLD (hyperlipidemia) HTN (hypertension) COPD (chronic obstructive pulmonary disease) Asthma Surgical History History of cardioversion H/O eye surgery History of sinus surgery History of right knee surgery History of esophagogastroduodenoscopy (EGD) History of colonoscopy History of cardiac catheterization Presence of Watchman left atrial appendage closure device History of cardiac radiofrequency ablation Family History Mother Brain tumor Sister Cancer Other No family history of adverse response to anesthesia No family history of bleeding disorder Social History Smoking Status: Former smoker Tobacco Type: Cigarettes Age Started Using Tobacco: 12; Age Quit Using Tobacco: 62; packs per day: 1.5; Second Hand Exposure: Yes (AT WORK/MOTHER SMOKED); Do You Dip or Chew Tobacco: No (hx off and on for 10 yr/ quit > 1 yr ago.); Hx Alcohol Use: Yes Alcohol type: beer and hard liquor Hx Substance Use: No Preferred Language: Filipino Communication Ability: Effective Hearing Ability: Use of Hearing Aid 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 Pertinent positives as per HPI. Physical Exam Physical Exam: Gen- NAD HEENT- anicteric sclera Neck- supple Lungs- No increased work of breathing Abd- soft, NT, ND Ext- no edema Skin- no rash,no wounds Neuro- AAO*3 Psych- Normal mood, cooperative Results & Data Vital Signs (Past 12 Hours) Vital Signs Temp Pulse Pulse Resp BP BP Pulse Ox 05/29/24 11:58 36.9 C 81 15 99/68 L 98 05/29/24 11:17 05/29/24 11:00 05/29/24 11:00 84 14 108/62 99 05/29/24 10:20 36.2 C L 84 19 118/58 L 99 05/29/24 09:49 110/70 05/29/24 09:30 114/70 05/29/24 09:15 103/68 05/29/24 09:15 87 16 103/68 96 05/29/24 09:10 98/72 L 05/29/24 09:05 91 H 05/29/24 08:58 85 16 98 05/29/24 08:49 36.5 C 90 24 66/47 L 95 Pulse Ox O2 Del Method O2 Del Method 05/29/24 11:58 Room Air 05/29/24 11:17 99 Room Air 05/29/24 11:00 99 Room Air 05/29/24 11:00 Room Air 05/29/24 10:20 Room Air 05/29/24 09:49 05/29/24 09:30 05/29/24 09:15 05/29/24 09:15 Room Air 05/29/24 09:10 05/29/24 09:05 05/29/24 08:58 Room Air 05/29/24 08:49 Room Air Laboratory Results Laboratory Results - last 48 hr 05/29/24 05/29/24 05/29/24 09:06 09:07 09:16 WBC 4.29 L RBC 4.24 L Hgb 11.8 L POC Hgb 12.2 L Hct 34.5 L POC Hct 36 L MCV 81.4 MCH 27.8 MCHC 34.2 RDW Std Deviation 48.1 H RDW Coeff of Ivan 16.3 H Plt Count 61 L MPV 11.7 Immature Gran % (Auto) 0.5 Neut % (Auto) 44.4 Lymph % (Auto) 36.8 Garza % (Auto) 17.9 Eos % (Auto) 0.2 Baso % (Auto) 0.2 Neut # (Auto) 1.90 Lymph # (Auto) 1.58 Garza # (Auto) 0.77 H Eos # (Auto) 0.01 Baso # (Auto) 0.01 Immature Gran # (Auto) 0.02 Platelet Estimate Decreased L Polychromasia 1+ Peripher Smr Path Cons PT Cancelled INR Cancelled APTT Cancelled PTT Ratio Cancelled POC Sodium 130 L Sodium 127 L POC Potassium 3.7 Potassium TNP POC Chloride 96 L Chloride 96 L Carbon Dioxide 22 POC Total CO2 22 L Anion Gap 9 POC Anion Gap 17.0 POC BUN 31 H BUN 26 H Creatinine 1.43 H POC Creatinine 1.6 H Est Cr Clr Drug Dosing 52.2 Est GFR ( Amer) 55.5 Est GFR (Non-Af Amer) 47.9 BUN/Creatinine Ratio 18.2 Glucose 137 H POC Glucose (other) 136 H Lactate 2.0 Calcium 8.5 L POC Ioniz Calcium Harika 1.03 L Magnesium 2.4 Total Bilirubin 1.4 H Direct Bilirubin TNP AST TNP ALT 104 H Alkaline Phosphatase 87 Troponin I High Sens 9.1 Total Protein 6.7 Albumin 3.6 Procalcitonin Cancelled Urine Color Urine Appearance Urine pH Ur Specific [place] Urine Protein Urine Glucose (UA) Urine Ketones Urine Blood Urine Nitrite Urine Bilirubin Urine Urobilinogen Ur Leukocyte Esterase Urine WBC (Auto) Urine RBC (Auto) U Hyaline Cast (Auto) U Epithel Cells (Auto) Urine Bacteria (Auto) Granular Casts Urine Mucus Adenovirus (PCR) Not Detected Anaplasma Smear See Comment Babesia Smear See Comment A B. pertussis DNA (PCR) Not Detected B.parapertussis DNA PCR Not Detected Lyme Disease Screen C. pneumoniae DNA (PCR) Not Detected Coronavirus OC43 (PCR) Not Detected Coronavirus HKU1 (PCR) Not Detected Coronavirus 229E (PCR) Not Detected SARS-CoV-2 (PCR) Not Detected Coronavirus NL63 (PCR) Not Detected Human Metapneumovir PCR Not Detected Influenza Type A (PCR) Not Detected Influenza Type B (PCR) Not Detected M. pneumoniae (PCR) Not Detected Parainfluenza 1 (PCR) Not Detected Parainfluenza 2 (PCR) Not Detected Parainfluenza 3 (PCR) Not Detected Parainfluenza 4 (PCR) Not Detected RSV (PCR) Not Detected Entero/Rhino (PCR) Not Detected Blood Parasites ID Present Blood Type A Negative Antibody Screen NEGATIVE Crossmatch See Detail 05/29/24 05/29/24 05/29/24 10:00 10:01 10:30 WBC RBC Hgb POC Hgb Hct POC Hct MCV MCH MCHC RDW Std Deviation RDW Coeff of Ivan Plt Count MPV Immature Gran % (Auto) Neut % (Auto) Lymph % (Auto) Garza % (Auto) Eos % (Auto) Baso % (Auto) Neut # (Auto) Lymph # (Auto) Garza # (Auto) Eos # (Auto) Baso # (Auto) Immature Gran # (Auto) Platelet Estimate Polychromasia Peripher Smr Path Cons PT Cancelled INR Cancelled APTT Cancelled PTT Ratio Cancelled POC Sodium Sodium POC Potassium Potassium TNP 3.4 L POC Chloride Chloride Carbon Dioxide POC Total CO2 Anion Gap POC Anion Gap POC BUN BUN Creatinine POC Creatinine Est Cr Clr Drug Dosing Est GFR ( Amer) Est GFR (Non-Af Amer) BUN/Creatinine Ratio Glucose POC Glucose (other) Lactate Calcium POC Ioniz Calcium Harika Magnesium Total Bilirubin Direct Bilirubin TNP 0.4 H AST TNP 99 H ALT Alkaline Phosphatase Troponin I High Sens Total Protein Albumin Procalcitonin 0.73 H Urine Color Dark Yellow Urine Appearance Cloudy A Urine pH 5.[address] [place] 1.023 Urine Protein 1+ H Urine Glucose (UA) Negative Urine Ketones Trace H Urine Blood Negative Urine Nitrite Negative Urine Bilirubin 1+ H Urine Urobilinogen Negative Ur Leukocyte Esterase Negative Urine WBC (Auto) 0-5 Urine RBC (Auto) 6-10 H U Hyaline Cast (Auto) 6-10 H U Epithel Cells (Auto) 6-10 H Urine Bacteria (Auto) None Seen Granular Casts Present A Urine Mucus Present A Adenovirus (PCR) Anaplasma Smear Cancelled Babesia Smear Cancelled B. pertussis DNA (PCR) B.parapertussis DNA PCR Lyme Disease Screen Negative C. pneumoniae DNA (PCR) Coronavirus OC43 (PCR) Coronavirus HKU1 (PCR) Coronavirus 229E (PCR) SARS-CoV-2 (PCR) Coronavirus NL63 (PCR) Human Metapneumovir PCR Influenza Type A (PCR) Influenza Type B (PCR) M. pneumoniae (PCR) Parainfluenza 1 (PCR) Parainfluenza 2 (PCR) Parainfluenza 3 (PCR) Parainfluenza 4 (PCR) RSV (PCR) Entero/Rhino (PCR) Blood Parasites ID Blood Type Antibody Screen Crossmatch 05/29/24 11:25 WBC RBC Hgb POC Hgb Hct POC Hct MCV MCH MCHC RDW Std Deviation RDW Coeff of Ivan Plt Count MPV Immature Gran % (Auto) Neut % (Auto) Lymph % (Auto) Garza % (Auto) Eos % (Auto) Baso % (Auto) Neut # (Auto) Lymph # (Auto) Garza # (Auto) Eos # (Auto) Baso # (Auto) Immature Gran # (Auto) Platelet Estimate Polychromasia Peripher Smr Path Cons PT 14.6 H INR 1.4 H APTT 37 H PTT Ratio 1.4 POC Sodium Sodium POC Potassium Potassium POC Chloride Chloride Carbon Dioxide POC Total CO2 Anion Gap POC Anion Gap POC BUN BUN Creatinine POC Creatinine Est Cr Clr Drug Dosing Est GFR ( Amer) Est GFR (Non-Af Amer) BUN/Creatinine Ratio Glucose POC Glucose (other) Lactate Calcium POC Ioniz Calcium Harika Magnesium Total Bilirubin Direct Bilirubin AST ALT Alkaline Phosphatase Troponin I High Sens Total Protein Albumin Procalcitonin Urine Color Urine Appearance Urine pH Ur Specific [place] Urine Protein Urine Glucose (UA) Urine Ketones Urine Blood Urine Nitrite Urine Bilirubin Urine Urobilinogen Ur Leukocyte Esterase Urine WBC (Auto) Urine RBC (Auto) U Hyaline Cast (Auto) U Epithel Cells (Auto) Urine Bacteria (Auto) Granular Casts Urine Mucus Adenovirus (PCR) Anaplasma Smear Babesia Smear B. pertussis DNA (PCR) B.parapertussis DNA PCR Lyme Disease Screen C. pneumoniae DNA (PCR) Coronavirus OC43 (PCR) Coronavirus HKU1 (PCR) Coronavirus 229E (PCR) SARS-CoV-2 (PCR) Coronavirus NL63 (PCR) Human Metapneumovir PCR Influenza Type A (PCR) Influenza Type B (PCR) M. pneumoniae (PCR) Parainfluenza 1 (PCR) Parainfluenza 2 (PCR) Parainfluenza 3 (PCR) Parainfluenza 4 (PCR) RSV (PCR) Entero/Rhino (PCR) Blood Parasites ID Blood Type Antibody Screen Crossmatch Diagnostic Findings Chest X-Ray 05/29/24 08:58 XR chest 1V portable HISTORY: 74 years-old Male Sepsis COMPARISON: 07/29/2023 CT TECHNIQUE: AP view of the chest FINDINGS: Cardiomediastinal and hilar silhouettes are within normal limits. Emphysema without pneumothorax, pleural effusion or airspace consolidation. The bones appear grossly intact. Partially imaged spinal stimulator leads project over the thoracic spine. IMPRESSION: Emphysema without acute process. ACT 112: Negative or not required by law. The above report was generated using voice recognition software. It may contain grammatical, syntax or spelling errors. Electronically signed by: Esa Viera M.D. 05/29/2024 9:22 AM Abdomen/Pelvis CT 05/29/24 09:[address] WITHOUT CONTRAST CT DOSE: 1262.43 mGy.cm HISTORY: sepsis h/o AAA TECHNIQUE: Multiaxial CT images of the abdomen and pelvis were performed without contrast. A dose lowering technique was utilized adhering to the principles of ALARA. COMPARISON STUDY: Abdomen and pelvis CT 05/23/2024. FINDINGS: Splenomegaly again noted which has slightly increased in size. This measures 15.3 cm, previously measuring 14.6 cm. Mild fat stranding and trace fluid adjacent to the posterior medial aspect of the spleen is again noted. This is not significantly changed. Evaluation for splenic infarct is nondiagnostic on this noncontrast study. The spleen abuts the gastric fundus, unchanged. Mild hepatic steatosis. The unenhanced gallbladder, pancreas, adrenal glands, and kidneys are unremarkable. No hydronephrosis. Mild aneurysmal dilatation of the infrarenal abdominal aorta measures up to 3 cm. This remains unchanged. No retroperitoneal lymphadenopathy. There is a small hiatus hernia. Mild emphysema the lung bases. No acute fractures. Small fat-containing umbilical hernia. No pelvic free fluid or pelvic lymphadenopathy. Suboptimal evaluation for bowel pathology due to the lack of intravenous and oral contrast. However, there is no definite bowel wall thickening or obstruction. Normal appendix. The bladder is unremarkable. IMPRESSION: 1. Mild splenomegaly again noted which has slightly progressed. 2. There is mild fat stranding and trace fluid adjacent to the posterior medial aspect of the spleen, unchanged. There is a possible splenic infarct seen on the prior CT examination at this location. This is not well assessed on this study due to the lack of intravenous contrast. 3. No bowel wall thickening or obstruction. 4. Additional findings as described above. ACT 112: Negative or not required by law. Electronically signed by: Boni Garcia M.D. 05/29/2024 10:51 AM Medications Administered Home Medications Medication Instructions Recorded Confirmed Last Taken amlodipine 10 mg tablet 10 mg PO QAM 07/17/20 05/29/24 05/29/24 rosuvastatin 40 mg tablet 40 mg PO QPM 07/17/20 05/29/24 05/28/24 multivitamin 1 tab PO QAM 03/26/21 05/29/24 05/29/24 aspirin 81 mg tablet,delayed 81 mg PO QAM 05/28/21 05/29/24 05/29/24 release Flutter Valve #1 ea 10/06/22 04/26/24 Unknown azelastine 137 mcg (0.1 %) nasal 2 spray intranasal BID #30 mL 03/11/23 05/29/24 05/29/24 spray clopidogrel 75 mg tablet 75 mg PO QAM 07/01/23 05/29/24 05/29/24 albuterol sulfate 2.5 mg/3 mL 2.5 mg (3 mL) inhalation Q4H PRN 07/07/23 05/29/24 12/20/23 16:00 (0.083 %) solution for nebulization shortness of breath or wheezing #180 mL albuterol sulfate 90 mcg/actuation 2 puff inhalation Q6H PRN Wheezing 11/03/23 05/29/24 12/20/23 16:00 aerosol inhaler (ProAir HFA) #6.7 grams polyethylene glycol 3350 17 17 g PO QAM 12/09/23 05/29/24 05/29/24 gram/dose oral powder (Miralax) psyllium husk 0.4 gram capsule 0.4 g PO QAM 12/09/23 05/29/24 05/29/24 (Metamucil) trazodone 50 mg tablet 50 mg PO HS PRN Sleep 12/09/23 05/29/24 12/20/23 ezetimibe 10 mg tablet 10 mg PO QPM 12/14/23 05/29/24 05/28/24 fexofenadine 60 mg-pseudoephedrine 1 tab PO UD PRN allergy symptoms 12/14/23 05/29/24 Unknown ER 120 mg tablet,ext.release,12 hr montelukast 10 mg tablet 10 mg PO QAM 12/14/23 05/29/24 05/29/24 linaclotide 290 mcg capsule 290 mcg PO DAILY #90 caps 12/28/23 05/29/24 05/29/24 (Linzess) gabapentin 300 mg capsule 300 mg PO BID 30 days #60 caps 01/06/24 05/29/24 05/29/24 baclofen 10 mg tablet 10 mg PO BID PRN leg pain /Muscle 03/07/24 05/29/24 Unknown Spasm #60 tabs pregabalin 200 mg capsule 200 mg PO BID 30 days #60 caps 03/07/24 05/29/24 05/29/24 tramadol 50 mg tablet 100 mg (2 x 50 mg) PO BID PRN pain 03/07/24 05/29/24 Unknown 30 days #120 tabs umeclidinium 62.5 mcg-vilanterol 1 inh inhalation DAILY #60 ea 03/17/24 05/29/24 05/29/24 25 mcg/actuation powdr for inhalation (Anoro Ellipta) spironolactone 25 1 tab PO DAILY 05/23/24 05/29/24 05/29/24 mg-hydrochlorothiazide 25 mg tablet tamsulosin 0.4 mg capsule 0.4 mg PO QAM 05/23/24 05/29/24 05/29/24 metoclopramide HCl 5 mg tablet 5 mg PO Q6H PRN nausea #30 tabs 05/24/24 05/29/24 Unknown pantoprazole 40 mg tablet,delayed 40 mg PO BID #60 tabs 05/24/24 05/29/24 05/29/24 release (Protonix) sucralfate 1 gram tablet (Carafate) 1 g PO ACHS #60 tabs 05/24/24 05/29/24 05/29/24 primidone 50 mg tablet 50 mg PO DAILY PRN tremors 05/29/24 05/29/24 Unknown Active Medications Generic Name Dose Route Start Last Admin Trade Name Freq PRN Reason Stop Dose Admin Doxycycline Hyclate 100 mg 05/29/24 15:00 05/29/24 14:47 Doxycycline Hyclate 100 Mg Cap PO 06/05/24 14:59 100 mg BID BERE Administration
[2024-05-29] MEDS: DOXYCYCLINE HYCLATE 100 MG CAP PO SCH (14:47)
--- NOTE | 2024-05-29 14:48 | Emergency Department Note ---
Impression & Plan Acute hypotension, Babesiosis, Acute hyponatremia ED Provider Note NAME: ILIANA GANDARA AGE: 74 SEX: Male INFORMANT: Patient and ED PROVIDER(S): Av Rodriguez MD CHIEF COMPLAINT: Illness PLAN: Disposition: Admitted Outpatient prescription management: none Referral: None MEDICAL DECISION MAKING: Patient presented and was emergently evaluated as he was brought to the resuscitation room due to hypotension. He noted intermittent fevers. He had some vague complaints of abdominal discomfort but none at this current time. Patient denied any chest pain or shortness of breath. He was made a sepsis alert. He was afebrile here. The patient was started on fluid resuscitation after 2 IVs were placed. The patient was feeling better and blood pressure did improve. He was found to stable anemia and CBC with new thrombocytopenia. Patient's blood smear was very concerning for babesiosis as confirmed by pathology. Discussed this with the ED pharmacist. Patient was started on azithromycin and atovaquone. Lyme testing was negative. Patient also has hyponatremia. After hypotension resolved additional fluid resuscitation was held. Patient's CT scan shows some splenomegaly but no acute process. Chest x- ray did not reveal any pneumonia. Bio fire testing was negative. Consultation was placed with the [facility] hospitalist service, Dr. Dye. Case discussed and diagnostics were reviewed. Did discuss initiation of doxycycline for additional tickborne coverage. He will evaluate the patient and initiate this. 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 Vital Signs: reviewed and remarkable for hypotension Additional History obtained from: none Chronic Medical/Social Conditions affecting care: Hypertension Prior/ Outside/ External records reviewed: none Differential Diagnosis: Sepsis, UTI, pneumonia, metabolic, electrolyte abnormalities, cardiac sources, intracerebral event, toxicologic, neurologic, as well as other pathologies. Diagnostics, independently interpreted by me: ECG: Twelve-lead ECG reveals a sinus rhythm with PACs at 91 bpm. Left anterior fascicular block. Nonspecific ST. No ST elevation. Cardiac Monitoring: Cardiac monitoring ordered by me: The patient was placed on continuous cardiac monitoring and observed. It revealed a sinus rhythm with PACs at 81 bpm. Medical decision rules: none Imaging studies: Chest x-ray. Findings: A chest x-ray was performed and revealed no pneumothorax, effusion, infiltrate, pulmonary edema, free air under the diaphragm, or wide mediastinum. Impression: No acute disease. HPI: 74 year old Male arrives for evaluation of illness, weakness and pain in abdomen. Patient states that he was here last week and evaluated. He came back today because he was having some feelings of weakness, feeling generally ill, dizziness, and on and off fevers. He had some vague discomfort in the abdomen but currently does not have any. He also noted some discomfort in his leg but currently that has gone as well. On presentation patient was found to have significant hypotension. He has been drinking some fluids but not eating. Patient was brought back to the resuscitation room and evaluated immediately. He was made a sepsis alert. Pt denies LOC, headache, trauma, diaphoresis, visual changes, neck pain, chest pain, breathing difficulties, nausea, vomiting, current abdominal pain, back pain, melena, hematochezia, urinary symptoms, numbness, lymphadenopathy, rash, or other complaints. PAST MEDICAL HISTORY: See Below, A-fib PAST SURGICAL HISTORY: See Below, SOCIAL HISTORY: See Below, retired HOME MEDICATIONS: See Below ALLERGIES: See Below VITALS: See Below PHYSICAL EXAMINATION: GENERAL: Awake, alert, w mildly ill ell-appearing, in no distress HENT: Normocephalic, atraumatic. Oropharynx unremarkable. EYES: Normal conjunctiva. Sclera non-icteric. NECK: Inspection normal. Non-tender. Supple. No nuchal rigidity. FROM. No masses. RESPIRATORY: Clear to auscultation. No wheezes. No rales. Normal respiratory effort. CARDIAC: Normal rate. Normal rhythm. No murmurs. No rubs. Extremities warm and well perfused. Pulses equal. No JVD. GI: Soft, non-distended. No tenderness to palpation. No rebound or guarding. No masses. RECTAL: Brown stool. Hemoccult negative. MUSCULOSKELETAL: Atraumatic. Chest examination reveals no tenderness. The back is symmetrical on inspection without obvious abnormality. There is no CVA tenderness to palpation. No joint edema. LOWER EXTREMITIES: Calves are equal size bilaterally and non-tender. No edema. No discoloration. NEURO: Normal sensorium. No sensory or motor deficits noted. SKIN: No rash or jaundice noted. PROCEDURES: none CRITICAL CARE: I have personally spent 30 minutes of critical care time in the direct management of this patient. This includes bedside care, interpretation of diagnostic studies, and testing, discussion with consultants, patient, and family members, and other required patient management activities. These minutes are in excess of all separately billable procedures. OBSERVATION NOTE: none Past Med/Surg History Problem List (Updated 05/29/24 @ 14:48 by Av Rodriguez MD) Acute hyponatremia (Acute) Babesiosis (Acute) Acute hypotension (Acute) Babesiosis Gastroenteritis Intractable nausea Abdominal pain (Acute) Generalized weakness (Acute) Gastritis Encounter for pre-operative examination Neuropathy Mixed action and resting tremor Abnormal CT scan, chest Ground glass opacities 06/15/2023 Allergic rhinitis MACIEL (dyspnea on exertion) History of sinusitis History of tobacco use Chronic back pain greater than 3 months duration Pulmonary nodule seen on imaging study History of COVID-19 Encounter for pre-operative examination Sensorineural hearing loss (SNHL) Chronic rhinitis Excessive cerumen in both ear canals Acid reflux Seasonal allergies Asthma Heart disease Action tremor (Chronic) Vitamin B12 deficiency Tremor TIA (transient ischemic attack) Restless leg syndrome Lumbar radiculopathy Lumbar canal stenosis Anterior leg pain History of esophageal reflux Chronic obstructive pulmonary disease Chronic asthmatic bronchitis Back pain Atrial fibrillation GERD (gastroesophageal reflux disease) Medical History Epigastric abdominal pain Neuropathy Enlarged prostate History of sinusitis History of COVID-19 Tremor Osteoarthritis Spinal stenosis DDD (degenerative disc disease) GERD (gastroesophageal reflux disease) Hearing deficit AAA (abdominal aortic aneurysm) Atrial fibrillation CAD (coronary artery disease) HLD (hyperlipidemia) HTN (hypertension) COPD (chronic obstructive pulmonary disease) Asthma Surgical History History of cardioversion H/O eye surgery History of sinus surgery History of right knee surgery History of esophagogastroduodenoscopy (EGD) History of colonoscopy History of cardiac catheterization Presence of Watchman left atrial appendage closure device History of cardiac radiofrequency ablation Family History Mother Brain tumor Sister Cancer Other No family history of adverse response to anesthesia No family history of bleeding disorder Social History Smoking Status: Former smoker Tobacco Type: Cigarettes Age Started Using Tobacco: 12; Age Quit Using Tobacco: 62; packs per day: 1.5; Second Hand Exposure: Yes (AT WORK/MOTHER SMOKED); Do You Dip or Chew Tobacco: No (hx off and on for 10 yr/ quit > 1 yr ago.); Hx Alcohol Use: Yes Alcohol type: beer and hard liquor Hx Substance Use: No Preferred Language: Ukrainian Communication Ability: Effective Hearing Ability: Use of Hearing Aid 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 Escort Required: No Beliefs That Will Affect Care: None Current Living Situation: Significant Other current occupational status: retired Other Information That Helps Us Care for You: No Feels Safe at Home: Yes Safety Concerns: Feels Safe At This Time Assistive Devices: Denture - Upper and Hearing Aid - Bilateral Allergies Allergies Allergy/AdvReac Type Severity Reaction Status Date / Time Iodinated Contrast Media Allergy Mild Hives Verified 05/29/24 10:39 house dust mite Allergy Unknown Per Verified 05/29/24 10:39 allergy testing levalbuterol Allergy Unknown Dyspnea, Verified 05/29/24 10:39 elevated heart rate ? - pt doesn't remember mold Allergy Unknown Per Verified 05/29/24 10:39 allergy testing ragweed pollen Allergy Unknown Per Verified 05/29/24 10:39 allergy testing albuterol [From Combivent] AdvReac Unknown Heart Verified 05/29/24 10:39 racing ipratropium [From Combivent] AdvReac Unknown Heart Verified 05/29/24 10:39 racing lisinopril AdvReac Unknown Cough Verified 05/29/24 10:39 Home Meds Home Medications Medication Instructions Recorded Confirmed amlodipine 10 mg tablet 10 mg PO QAM 07/17/20 05/29/24 rosuvastatin 40 mg tablet 40 mg PO QPM 07/17/20 05/29/24 multivitamin 1 tab PO QAM 03/26/21 05/29/24 aspirin 81 mg tablet,delayed 81 mg PO QAM 05/28/21 05/29/24 release clopidogrel 75 mg tablet 75 mg PO QAM 07/01/23 05/29/24 polyethylene glycol 3350 17 17 g PO QAM 12/09/23 05/29/24 gram/dose oral powder (Miralax) psyllium husk 0.4 gram capsule 0.4 g PO QAM 12/09/23 05/29/24 (Metamucil) trazodone 50 mg tablet 50 mg PO HS PRN Sleep 12/09/23 05/29/24 ezetimibe 10 mg tablet 10 mg PO QPM 12/14/23 05/29/24 fexofenadine 60 mg-pseudoephedrine 1 tab PO UD PRN allergy symptoms 12/14/23 05/29/24 ER 120 mg tablet,ext.release,12 hr montelukast 10 mg tablet 10 mg PO QAM 12/14/23 05/29/24 spironolactone 25 1 tab PO DAILY 05/23/24 05/29/24 mg-hydrochlorothiazide 25 mg tablet tamsulosin 0.4 mg capsule 0.4 mg PO QAM 05/23/24 05/29/24 primidone 50 mg tablet 50 mg PO DAILY PRN tremors 05/29/24 05/29/24 Previous Rx's Medication Instructions Recorded Flutter Valve #1 ea 10/06/22 azelastine 137 mcg (0.1 %) nasal 2 spray intranasal BID #30 mL 03/11/23 spray albuterol sulfate 2.5 mg/3 mL 2.5 mg (3 mL) inhalation Q4H PRN 07/07/23 (0.083 %) solution for nebulization shortness of breath or wheezing #180 mL albuterol sulfate 90 mcg/actuation 2 puff inhalation Q6H PRN Wheezing 11/03/23 aerosol inhaler (ProAir HFA) #6.7 grams linaclotide 290 mcg capsule 290 mcg PO DAILY #90 caps 12/28/23 (Linzess) gabapentin 300 mg capsule 300 mg PO BID 30 days #60 caps 01/06/24 baclofen 10 mg tablet 10 mg PO BID PRN leg pain /Muscle 03/07/24 Spasm #60 tabs pregabalin 200 mg capsule 200 mg PO BID 30 days #60 caps 03/07/24 tramadol 50 mg tablet 100 mg (2 x 50 mg) PO BID PRN pain 03/07/24 30 days #120 tabs umeclidinium 62.5 mcg-vilanterol 1 inh inhalation DAILY #60 ea 03/17/24 25 mcg/actuation powdr for inhalation (Anoro Ellipta) metoclopramide HCl 5 mg tablet 5 mg PO Q6H PRN nausea #30 tabs 05/24/24 pantoprazole 40 mg tablet,delayed 40 mg PO BID #60 tabs 05/24/24 release (Protonix) sucralfate 1 gram tablet (Carafate) 1 g PO ACHS #60 tabs 05/24/24 Results & Data (ED) Vital Signs Vital Signs - 24 hr 05/29/24 08:49 05/29/24 08:58 05/29/24 09:05 Temperature 36.5 C Temperature Source Oral Pulse Rate 90 85 91 H Pulse Rate [Apical] Pulse Rhythm [Apical] Pulse Strength [Apical] Respiratory Rate 24 16 Respiratory Effort / Characteristics Non-Labored Respiratory Depth Normal Respiratory Pattern Blood Pressure 66/47 L Blood Pressure [Left Arm] Blood Pressure Mean 53 Blood Pressure Mean [Left Arm] Pulse Oximetry 95 98 Oxygen Delivery Method Room Air Room Air Sepsis New/Unexplained Change in Mental Status No Sepsis Action Taken by Nursing Previously Notified 05/29/24 09:10 05/29/24 09:15 05/29/24 09:15 Temperature Temperature Source Pulse Rate Pulse Rate [Apical] 87 Pulse Rhythm [Apical] Pulse Strength [Apical] Respiratory Rate 16 Respiratory Effort / Characteristics Respiratory Depth Respiratory Pattern Blood Pressure 98/72 L 103/68 Blood Pressure [Left Arm] 103/68 Blood Pressure Mean 84 85 Blood Pressure Mean [Left Arm] 79 Pulse Oximetry 96 Oxygen Delivery Method Room Air Sepsis New/Unexplained Change in Mental Status Sepsis Action Taken by Nursing 05/29/24 09:30 05/29/24 09:49 05/29/24 10:20 Temperature 36.2 C L Temperature Source Oral Pulse Rate Pulse Rate [Apical] 84 Pulse Rhythm [Apical] Regular Pulse Strength [Apical] Normal Respiratory Rate 19 Respiratory Effort / Characteristics Non-Labored Spontaneous Respiratory Depth Normal Respiratory Pattern Regular Blood Pressure 114/70 110/70 Blood Pressure [Left Arm] 118/58 L Blood Pressure Mean 89 88 Blood Pressure Mean [Left Arm] 78 Pulse Oximetry 99 Oxygen Delivery Method Room Air Sepsis New/Unexplained Change in Mental Status Sepsis Action Taken by Nursing Laboratory Data 05/29/24 09:06 05/29/24 10:30 Lab Results 05/29/24 05/29/24 05/29/24 Range/Units 09:06 09:07 09:16 WBC 4.29 L (4.8-10.8) K/ul RBC 4.24 L (4.70-6.10) M/uL Hgb 11.8 L (14.0-18.0) g/dl POC Hgb 12.2 L (14.0-18.0) g/dl Hct 34.5 L (42.0-52.0) % POC Hct 36 L (42-52) % MCV 81.4 (80.0-100.0) fL MCH 27.8 (25.0-34.0) pg MCHC 34.2 (32.0-36.0) g/dL RDW Std Deviation 48.1 H (36.4-46.3) fL RDW Coeff of Ivan 16.3 H (11.5-14.5) % Plt Count 61 L (130-400) K/uL MPV 11.7 (9.4-12.4) fL Immature Gran % (Auto) 0.5 % Neut % (Auto) 44.4 % Lymph % (Auto) 36.8 % Prentiss % (Auto) 17.9 % Eos % (Auto) 0.2 % Baso % (Auto) 0.2 % Neut # (Auto) 1.90 (1.40-6.50) K/uL Lymph # (Auto) 1.58 (1.20-3.40) K/uL Prentiss # (Auto) 0.77 H (0.11-0.59) K/uL Eos # (Auto) 0.01 (0.00-0.50) K/uL Baso # (Auto) 0.01 (0.00-0.20) K/uL Immature Gran # (Auto) 0.02 (0.01-0.20) K/uL Platelet Estimate Decreased L (Normal) Polychromasia 1+ Peripher Smr Path Cons PT Cancelled INR Cancelled APTT Cancelled PTT Ratio Cancelled POC Sodium 130 L (135-144) mmol/L Sodium 127 L (136-145) mmol/L POC Potassium 3.7 (3.3-5.0) mmol/L Potassium TNP POC Chloride 96 L (101-112) mmol/L Chloride 96 L (98-107) mmol/L Carbon Dioxide 22 (21-32) mmol/L POC Total CO2 22 L (24-31) mmol/L Anion Gap 9 (3-11) POC Anion Gap 17.0 (16-25) mmol/L POC BUN 31 H (7-18) mg/dl BUN 26 H (6-23) mg/dl Creatinine 1.43 H (0.6-1.4) mg/dl POC Creatinine 1.6 H (0.6-1.3) mg/dl Est Cr Clr Drug Dosing 52.2 ml/min Est GFR ( Amer) 55.5 ml/min Est GFR (Non-Af Amer) 47.9 ml/min BUN/Creatinine Ratio 18.2 (10-20) Glucose 137 H (70-99(Fasting)) mg/dl POC Glucose (other) 136 H (70-99) mg/dl Lactate 2.0 (0.4-2.0) mmol/L Calcium 8.5 L (8.6-10.3) mg/dl POC Ioniz Calcium Harika 1.03 L (1.12-1.32) mmol/l Magnesium 2.4 (1.7-2.4) mg/dl Total Bilirubin 1.4 H (0.2-1.0) mg/dl Direct Bilirubin TNP AST TNP ALT 104 H (7-52) U/L Alkaline Phosphatase 87 (34-104) U/L Total Creatine Kinase Troponin I High Sens 9.1 (0-20) pg/ml Total Protein 6.7 (6.0-8.3) gm/dl Albumin 3.6 (3.4-5.0) gm/dl Procalcitonin Cancelled Urine Color Urine Appearance (Clear) Urine pH (4.5-7.5) Ur Specific [place] (1.000-1.030) Urine Protein (Negative) Urine Glucose (UA) (Negative) Urine Ketones (Negative) Urine Blood (Negative) Urine Nitrite (Negative) Urine Bilirubin (Negative) Urine Urobilinogen (Negative) Ur Leukocyte Esterase (Negative) Urine WBC (Auto) (0-5) /hpf Urine RBC (Auto) (0-2) /hpf U Hyaline Cast (Auto) (0-2) /lpf U Epithel Cells (Auto) (0-2) /hpf Urine Bacteria (Auto) (None Seen) Granular Casts (None Prsent) /lpf Urine Mucus (None Prsent) Adenovirus (PCR) Not Detected (NotDetected) Anaplasma Smear See Comment Babesia Smear See Comment A B. pertussis DNA (PCR) Not Detected (NotDetected) B.parapertussis DNA PCR Not Detected (NotDetected) Lyme Disease Screen (Negative) C. pneumoniae DNA (PCR) Not Detected (NotDetected) Coronavirus OC43 (PCR) Not Detected (NotDetected) Coronavirus HKU1 (PCR) Not Detected (NotDetected) Coronavirus 229E (PCR) Not Detected (NotDetected) SARS-CoV-2 (PCR) Not Detected (NotDetected) Coronavirus NL63 (PCR) Not Detected (NotDetected) Human Metapneumovir PCR Not Detected (NotDetected) Influenza Type A (PCR) Not Detected (NotDetected) Influenza Type B (PCR) Not Detected (NotDetected) M. pneumoniae (PCR) Not Detected (NotDetected) Parainfluenza 1 (PCR) Not Detected (NotDetected) Parainfluenza 2 (PCR) Not Detected (NotDetected) Parainfluenza 3 (PCR) Not Detected (NotDetected) Parainfluenza 4 (PCR) Not Detected (NotDetected) RSV (PCR) Not Detected (NotDetected) Entero/Rhino (PCR) Not Detected (NotDetected) Blood Parasites ID Present Blood Type A Negative Antibody Screen NEGATIVE Crossmatch See Detail 05/29/24 05/29/24 05/29/24 Range/Units 10:00 10:01 10:30 WBC (4.8-10.8) K/ul RBC (4.70-6.10) M/uL Hgb (14.0-18.0) g/dl POC Hgb (14.0-18.0) g/dl Hct (42.0-52.0) % POC Hct (42-52) % MCV (80.0-100.0) fL MCH (25.0-34.0) pg MCHC (32.0-36.0) g/dL RDW Std Deviation (36.4-46.3) fL RDW Coeff of Ivan (11.5-14.5) % Plt Count (130-400) K/uL MPV (9.4-12.4) fL Immature Gran % (Auto) % Neut % (Auto) % Lymph % (Auto) % Prentiss % (Auto) % Eos % (Auto) % Baso % (Auto) % Neut # (Auto) (1.40-6.50) K/uL Lymph # (Auto) (1.20-3.40) K/uL Prentiss # (Auto) (0.11-0.59) K/uL Eos # (Auto) (0.00-0.50) K/uL Baso # (Auto) (0.00-0.20) K/uL Immature Gran # (Auto) (0.01-0.20) K/uL Platelet Estimate (Normal) Polychromasia Peripher Smr Path Cons PT Cancelled INR Cancelled APTT Cancelled PTT Ratio Cancelled POC Sodium (135-144) mmol/L Sodium (136-145) mmol/L POC Potassium (3.3-5.0) mmol/L Potassium TNP 3.4 L POC Chloride (101-112) mmol/L Chloride (98-107) mmol/L Carbon Dioxide (21-32) mmol/L POC Total CO2 (24-31) mmol/L Anion Gap (3-11) POC Anion Gap (16-25) mmol/L POC BUN (7-18) mg/dl BUN (6-23) mg/dl Creatinine (0.6-1.4) mg/dl POC Creatinine (0.6-1.3) mg/dl Est Cr Clr Drug Dosing ml/min Est GFR ( Amer) ml/min Est GFR (Non-Af Amer) ml/min BUN/Creatinine Ratio (10-20) Glucose (70-99(Fasting)) mg/dl POC Glucose (other) (70-99) mg/dl Lactate (0.4-2.0) mmol/L Calcium (8.6-10.3) mg/dl POC Ioniz Calcium Harika (1.12-1.32) mmol/l Magnesium (1.7-2.4) mg/dl Total Bilirubin (0.2-1.0) mg/dl Direct Bilirubin TNP 0.4 H AST TNP 99 H ALT (7-52) U/L Alkaline Phosphatase (34-104) U/L Total Creatine Kinase Cancelled Troponin I High Sens (0-20) pg/ml Total Protein (6.0-8.3) gm/dl Albumin (3.4-5.0) gm/dl Procalcitonin 0.73 H Urine Color Dark Yellow Urine Appearance Cloudy A (Clear) Urine pH 5.5 (4.5-7.5) Ur Specific [place] 1.023 (1.000-1.030) Urine Protein 1+ H (Negative) Urine Glucose (UA) Negative (Negative) Urine Ketones Trace H (Negative) Urine Blood Negative (Negative) Urine Nitrite Negative (Negative) Urine Bilirubin 1+ H (Negative) Urine Urobilinogen Negative (Negative) Ur Leukocyte Esterase Negative (Negative) Urine WBC (Auto) 0-5 (0-5) /hpf Urine RBC (Auto) 6-10 H (0-2) /hpf U Hyaline Cast (Auto) 6-10 H (0-2) /lpf U Epithel Cells (Auto) 6-10 H (0-2) /hpf Urine Bacteria (Auto) None Seen (None Seen) Granular Casts Present A (None Prsent) /lpf Urine Mucus Present A (None Prsent) Adenovirus (PCR) (NotDetected) Anaplasma Smear Cancelled Babesia Smear Cancelled B. pertussis DNA (PCR) (NotDetected) B.parapertussis DNA PCR (NotDetected) Lyme Disease Screen Negative (Negative) C. pneumoniae DNA (PCR) (NotDetected) Coronavirus OC43 (PCR) (NotDetected) Coronavirus HKU1 (PCR) (NotDetected) Coronavirus 229E (PCR) (NotDetected) SARS-CoV-2 (PCR) (NotDetected) Coronavirus NL63 (PCR) (NotDetected) Human Metapneumovir PCR (NotDetected) Influenza Type A (PCR) (NotDetected) Influenza Type B (PCR) (NotDetected) M. pneumoniae (PCR) (NotDetected) Parainfluenza 1 (PCR) (NotDetected) Parainfluenza 2 (PCR) (NotDetected) Parainfluenza 3 (PCR) (NotDetected) Parainfluenza 4 (PCR) (NotDetected) RSV (PCR) (NotDetected) Entero/Rhino (PCR) (NotDetected) Blood Parasites ID Blood Type Antibody Screen Crossmatch Administered Medications Doxycycline Hyclate (Doxycycline Hyclate 100 Mg Cap) 100 mg PO BID BERE Stop: 06/05/24 14:59 Last Admin: 05/29/24 14:47 Dose: 100 mg Documented By: SAHIL Discontinued Medications Atovaquone (Atovaquone 750 Mg/5 Ml Udc) 750 mg PO NOW STA Stop: 05/29/24 10:14 Last Admin: 05/29/24 10:54 Dose: 750 mg Documented By: MIMI Sodium Chloride (Nss) 1,000 mls @ 999 mls/hr IV .Q1H1M BERE Stop: 05/29/24 11:00 Last Infusion: 05/29/24 11:21 Dose: Infused Documented By: Admin: 05/29/24 10:19 Dose: 999 mls/hr Documented By: Infusion: 05/29/24 10:14 Dose: Infused Documented By: Admin: 05/29/24 09:08 Dose: 999 mls/hr Documented By: ESTEE Azithromycin 500 mg/ Dextrose 255 mls @ 127.5 mls/hr IV NOW STA Stop: 05/29/24 12:13 Last Infusion: 05/29/24 12:53 Dose: Infused Documented By: Admin: 05/29/24 10:29 Dose: 127.5 mls/hr Documented By: MIMI Imaging Data Radiologist's Impression: Chest X-Ray 05/29/24 08:58 XR chest 1V portable HISTORY: 74 years-old Male Sepsis COMPARISON: 07/29/2023 CT TECHNIQUE: AP view of the chest FINDINGS: Cardiomediastinal and hilar silhouettes are within normal limits. Emphysema without pneumothorax, pleural effusion or airspace consolidation. The bones appear grossly intact. Partially imaged spinal stimulator leads project over the thoracic spine. IMPRESSION: Emphysema without acute process. ACT 112: Negative or not required by law. The above report was generated using voice recognition software. It may contain grammatical, syntax or spelling errors. Electronically signed by: Esa Viera M.D. 05/29/2024 9:22 AM Abdomen/Pelvis CT 05/29/24 09:[address] WITHOUT CONTRAST CT DOSE: 1262.43 mGy.cm HISTORY: sepsis h/o AAA TECHNIQUE: Multiaxial CT images of the abdomen and pelvis were performed without contrast. A dose lowering technique was utilized adhering to the principles of ALARA. COMPARISON STUDY: Abdomen and pelvis CT 05/23/2024. FINDINGS: Splenomegaly again noted which has slightly increased in size. This measures 15.3 cm, previously measuring 14.6 cm. Mild fat stranding and trace fluid adjacent to the posterior medial aspect of the spleen is again noted. This is not significantly changed. Evaluation for splenic infarct is nondiagnostic on this noncontrast study. The spleen abuts the gastric fundus, unchanged. Mild hepatic steatosis. The unenhanced gallbladder, pancreas, adrenal glands, and kidneys are unremarkable. No hydronephrosis. Mild aneurysmal dilatation of the infrarenal abdominal aorta measures up to 3 cm. This remains unchanged. No retroperitoneal lymphadenopathy. There is a small hiatus hernia. Mild emphysema the lung bases. No acute fractures. Small fat-containing umbilical hernia. No pelvic free fluid or pelvic lymphadenopathy. Suboptimal evaluation for bowel pathology due to the lack of intravenous and oral contrast. However, there is no definite bowel wall thickening or obstruction. Normal appendix. The bladder is unremarkable. IMPRESSION: 1. Mild splenomegaly again noted which has slightly progressed. 2. There is mild fat stranding and trace fluid adjacent to the posterior medial aspect of the spleen, unchanged. There is a possible splenic infarct seen on the prior CT examination at this location. This is not well assessed on this study due to the lack of intravenous contrast. 3. No bowel wall thickening or obstruction. 4. Additional findings as described above. ACT 112: Negative or not required by law. Electronically signed by: Boni Garcia M.D. 05/29/2024 10:51 AM Discharge Plan Visit Data Chief Complaint: Abdominal Pain Stated Complaint: ABD PAIN, LEG PAIN ED Provider: Av Rodriguez ED Midlevel Provider: Juarez Romano Discharge Problem: Acute hypotension, Babesiosis, Acute hyponatremia Discharge Instructions Interventions: ED Discharge Assessment Last Done: 05/29/24 11:17
[2024-05-29] MEDS: traMADol HCL 50 MG TABLET PO PRN (17:32)
[2024-05-29] MEDS: ONDANSETRON INJ 2 MG/ML 2 ML VIAL IV PRN (18:12)
[2024-05-29] MEDS: BACLOFEN 10 MG TAB PO PRN (18:13)
[2024-05-29] MEDS: GABAPENTIN 300 MG CAP PO SCH (20:02)
[2024-05-29] MEDS: PREGABALIN 100 MG CAP PO SCH (20:02)
[2024-05-29] MEDS: ATOVAQUONE 750 MG/5 ML UDC PO SCH (21:05)
[2024-05-29] MEDS: ROSUVASTATIN CALCIUM 20 MG TAB PO SCH (21:05)
[2024-05-29] MEDS: PANTOprazole 40 MG TAB PO SCH (21:05)
[2024-05-29] MEDS: traZODone HCL 50 MG TAB PO PRN (21:45)
[2024-05-29] MEDS: NSS + 20MEQ KCL 20 MEQ/1,000 ML BAG IV SCH (22:14)
[2024-05-30 00:11] LABS: A calco-baum cmplx NotReported Not Detected (NotDetected); Bact fragilis Not Reported Not Detected (NotDetected); Blood Culture Id Panel PCR Panel Negative (NotDetected); C auris Not Reported Not Detected (NotDetected); Calbicans Not Reported Not Detected (NotDetected); Candida glabrata Not Reported Not Detected (NotDetected); Candida krusei Not Reported Not Detected (NotDetected); Cneoformans/gatti Not Reported Not Detected (NotDetected); Cparapsilosis Not Reported Not Detected (NotDetected); E cloacae compx Not Reported Not Detected (NotDetected); Efaecalis Not Reported Not Detected (NotDetected); Efaecium Not Reported Not Detected (NotDetected); Enterobacterales Not Reported Not Detected (NotDetected); Escherichia coli Not Reported Not Detected (NotDetected); H influenzae Not Reported Not Detected (NotDetected); K aerogenes Not Reported Not Detected (NotDetected); Koxytoca Not Reported Not Detected (NotDetected); Kpneumoniae grp Not Reported Not Detected (NotDetected); Lmonocyt Not Reported Not Detected (NotDetected); N meningitidis Not Reported Not Detected (NotDetected); P aeruginosa Not Reported Not Detected (NotDetected); Proteus spp Not Reported Not Detected (NotDetected); Salmonella spp Not Reported Not Detected (NotDetected); Staph lugdunensis Not Reported Not Detected (NotDetected); Staph spp. Not Reported Not Detected (NotDetected); Staphaureus Not Reported Not Detected (NotDetected); Staphepi Not Reported Not Detected (NotDetected); Stenmaltophilia Not Reported Not Detected (NotDetected); Strep agal(GrpB) Not Reported Not Detected (NotDetected); Strep pneum Not Reported Not Detected (NotDetected); Strep pyog (GrpA) Not Reported Not Detected (NotDetected); Strep spp Not Reported Not Detected (NotDetected)
[2024-05-30] MEDS: ACETAMINOPHEN 500 MG TAB PO PRN (02:08)
--- NOTE | 2024-05-30 06:13 | Electrocardiogram Report ---
Test Reason : Blood Pressure : / mmHG Vent. Rate : 091 BPM Atrial Rate : 091 BPM P-R Int : 172 ms QRS Dur : 104 ms QT Int : 382 ms P-R-T Axes : 084 -53 027 degrees QTc Int : 469 ms Sinus rhythm with Premature atrial complexes Left anterior fascicular block Nonspecific ST abnormality Abnormal ECG When compared with ECG of 23-MAY-2024 09:00, Premature atrial complexes are now Present Confirmed by Supa Espinoza ([id number]) on 05/30/2024 6:13:27 AM Referred By: Confirmed By:Supa Espinoza
--- NOTE | 2024-05-30 07:12 | Electrocardiogram Report ---
Test Reason : Blood Pressure : / mmHG Vent. Rate : 062 BPM Atrial Rate : 062 BPM P-R Int : 190 ms QRS Dur : 112 ms QT Int : 476 ms P-R-T Axes : 079 -14 008 degrees QTc Int : 483 ms Normal sinus rhythm Nonspecific ST abnormality Prolonged QT Abnormal ECG When compared with ECG of 29-MAY-2024 08:58, Premature atrial complexes are no longer Present Confirmed by Supa Espinoza ([id number]) on 05/30/2024 7:12:23 AM Referred By: REFERRED SELF Confirmed By:Supa Espinoza
[2024-05-30 08:01] LABS: Albumin Level 2.7 gm/dl (3.4-5.0); Bilirubin,Total 1.2 mg/dl (0.2-1.0); Calcium 7.1 mg/dl (8.6-10.3); Potassium 3.6 mmol/L (3.5-5.1)
--- NOTE | 2024-05-30 08:03 | Hospitalist Progress Note ---
Date of Service May 30, 2024 Assessment & Plan (1) Babesiosis: (2) Acute hyponatremia: (3) Acute hypotension: Plan Babesiosis: - Ongoing leukopenia, anemia, thrombocytopenia + mild transaminitis - Peripheral smear consistent with babesiosis, PCR pending - RBC parasite % is 0.1-0.9 %. - Expanded tick-borne illness panel pending - Continue Atovaquone + Azithromycin + Doxycycline - Blood culture +Bacillus, not anthracis, likely contaminant - Repeat blood culture drawn 05/30, pending Hyponatremia, Hypotension- Improving: - Repeat Na 133 - Continue to hold HCTZ - Continue IV fluids VTE Prophylaxis - SCDs, chemical deferred due to thrombocytopenia Diet - regular Admission and Anticipated Discharge Date Admission Date: May 29, 2024 Supervising Physician Co-Signing Physician Notes I personally examined the patient and verified all black points of history and exam, discussed case, and agree with decision making with Dr Cárdenas feeling weak. Feels okay at rest but gets nauseated and weak whenever he tries to get up. Vitals noted, in general he is awake and alert pleasant but fatigued no distress. HEENT normocephalic atraumatic mucous membranes moist. Breathing unlabored no accessory muscle use good effort. Skin without rashes pallor or icterus. Neuro without focal deficits. Sepsis POA due to babesiosiscontinue antibiotics and supportive care. Acute renal failure/JARVIS appears to have improved. Pancytopenia worse, but certainly early in the course of treatment. Fortunately overall his vital signs look reasonable. Appreciate infectious disease input. Otherwise as above. Subjective Pt notes nausea, weakness, fever/chills x2 weeks as reason for seeking care. This morning, denies N/V, fever/chills but endorses ongoing significant weakness. Of note, [place] and high risk for tick exposure. Denies chest pain, SOB. Review of Systems Review of Systems: as per HPI Physical Exam Physical Exam: General: Alert and oriented. No acute distress Cardiac: Regular rate and rhythm, no murmurs appreciated Respiratory: Lungs clear to auscultation bilaterally, No increased work of breathing Abdominal: Soft, non-tender, non-distended. Bowel sounds present. Psych: mood affect congruence Results & Data Results & Data Vital Signs (Past 12 Hours) Vital Signs Temp Pulse Pulse Resp BP BP Pulse Ox 07/30/24 05:44 109/57 L 05/30/24 02:45 37.0 C 68 18 87/50 L 97 05/29/24 22:45 38.4 C H 79 22 105/56 L 99 05/29/24 21:49 95 H 05/29/24 21:12 98 H 19 106/65 97 05/29/24 20:46 112/60 05/29/24 20:42 106 H 11 L 95 O2 Del Method 05/30/24 05:44 05/30/24 02:45 Room Air 05/29/24 22:45 Room Air 05/29/24 21:49 05/29/24 21:12 Room Air 05/29/24 20:46 05/29/24 20:42 Room Air Resident Activity Tracking Resident Involvement: Resident Care Provided Care Provided: Adult Hospital Medicine
[2024-05-30 08:08] LABS: Albumin Globulin Ratio 1.3 (0.9-2); BUN Creatinine Ratio 18.3 (10-20); Est GFR (African American) 77.1 ml/min; Est GFR (Non-African American) 66.5 ml/min; Globulin 2.1 gm/dl (2.5-4.0); Phosphorus 2.6 mg/dl (2.5-4.9); Total Protein 4.8 gm/dl (6.0-8.3)
[2024-05-30] MEDS: MULTIVITAMIN TAB PO SCH (08:12)
[2024-05-30] MEDS: TAMSULOSIN HCL 0.4 MG CAP PO SCH (08:13)
[2024-05-30] MEDS: PSYLLIUM or GUAR GUM FIBER 4GM PACKET PO SCH (08:13)
[2024-05-30] MEDS: POLYETHYLENE (MIRALAX) 17 GM PACK PO SCH (08:13)
[2024-05-30] MEDS: LINACLOTIDE 145 MCG CAPSULE PO SCH (08:13)
[2024-05-30] MEDS: UMECLIDINIUM/VILANTEROL 62.5/25MCG 7 PUFFS/INHALER INH SCH (08:14)
[2024-05-30 08:16] LABS: Hematocrit (blood only) 25.4 % (42.0-52.0); Hemoglobin 8.5 g/dl (14.0-18.0); Mean Corpuscular Hemoglobin 27.4 pg (25.0-34.0); Mean Corpuscular Hgb Conc 33.5 g/dL (32.0-36.0); Mean Corpuscular Volume 81.9 fL (80.0-100.0); Mean Platelet Volume 12.1 fL (9.4-12.4); Platelet Count 45 K/uL (130-400); RDW Coefficient of Variation 16.5 % (11.5-14.5); RDW Standard Deviation 49.2 fL (36.4-46.3); White Blood Count 3.08 K/ul (4.8-10.8)
[2024-05-30] MEDS: AZITHROMYCIN 500 MG in DEXTROSE 5% 250 ML IV SCH (08:23)
[2024-05-30 08:37] LABS: Basophils # (auto) 0.01 K/uL (0.00-0.20); Basophils % (auto) 0.3 %; Eosinophils # (auto) 0.04 K/uL (0.00-0.50); Eosinophils % (auto) 1.3 %; Immature Granulocytes # (auto) 0.03 K/uL (0.01-0.20); Lymphocytes # (auto) 1.48 K/uL (1.20-3.40); Lymphocytes % (auto) 48.1 %; Monocytes # (auto) 0.63 K/uL (0.11-0.59); Monocytes % (auto) 20.5 %; Neutrophils # (auto) 0.89 K/uL (1.40-6.50); Neutrophils % (auto) 28.8 %; Polychromasia 1+
--- NOTE | 2024-05-30 14:07 | Infectious Disease Progress Nt ---
Date of Service May 30, 2024 Assessment & Plan (1) Babesiosis: Plan This is a 74-year-old man with past medical history of CAD, COPD, pulmonary nodules recently admitted 05/23 - 05/24 with abdominal pain and nausea. He underwent a CTAP that showed an incidental finding of a small infrarenal aneurysm and splenic infarct. He was evaluated by GI and diagnosed with gastritis, he was treated with Zofran, Protonix and Carafate. He now presents on 05/29 for ongoing abdominal pain nausea, vomiting, fever., chills malaise and lightheadedness In the ED, he is afebrile, and hypotensive with a blood pressure of 66/47, HR 90. He was started on fluid resuscitation and blood pressure improved. Labs: WBC 4.29, hemoglobin 11.8,,Hematocrit 34.5,, platelets 61, alk phos 87, ALT 104, AST 99 ,procalcitonin 0.73. Red blood cell noted for inclusions concerning for babesiosis. Babesiosis PCR pending. Chest x-ray with emphysema without acute process. CTAP with mild splenomegaly which has slightly progressed; mild fat stranding and trace fluid adjacent to the posterior medial aspect of the spleen which is unchanged. There is a possible splenic infarct. He has been started on atovaquone and azithromycin for possible babesiosis.. He denies travel outside the [place]. [place], but denies tick bites. He admits to camping throughout the summer. ID consulted fr possible Babesiosis. MICRO BC05/24Bacillus sp, not anthracis in 1/4 bottles ABX Atovaquone 05/29-ongoing Azith 05/29-ongoing Doxy 05/29-ongoing # Possible Babesiosis # Rule out other tick borne illness # Bacilus, not anthracis bacteremia, likely contaminant # Mild splenomegaly and splenic infarct on imaging # Splenic infarct #Thrombocytopenia #Transaminitis RBC parasite % is 0.1-0.9 %. Lyme screen negative. Bacillus sp, not anthracis bacteremia is likely a contaminant, in 1/4 bottles. However would REPEAT BC as he has a splenic infarct on imaging.. 05/30 wbc 3.08, h/h 8.5/25.4, plts 45, ast 229. alt 149 Recommendations Continue [id number] mg po daily and atovaquone 750 mg po q12hrs for babesiosis . Follow up Babesia PCR Follow up Anaplasma/ Ehrlichiosis pcr Continue doxycycline 100 mg po Q12 h Repeat BC to ensure clearance as splenic infarct noted on imaging. ID will continue to follow Lala Senior MD, MPH Infectious Disease [facility], [facility] Call [phone] with questions. Admission and Anticipated Discharge Date Admission Date: May 29, 2024 Subjective Subsequent visit was provided via telemedicine using two-way real-time interactive telecommunication between the patient and the telemedicine provider. For the duration of the visit, the provider was performing the assessment from a different facility than the patient. This includesuse of bluetooth stethoscope forauscultationperformed by the telepresenter that the telemedicine provider can hear if described in the physical exam. [employer] contact information: Please call [facility] Center [phone]. (Phone Number For Physician Use Only) After establishing a telemedicine visit, patient was: Patient was verified with two unique identifiers Time Spent with Patient: Subsequent => 25 min He complains of nausea. Afebrile Physical Exam Physical Exam: Gen- NAD HEENT- anicteric sclera Neck- supple Lungs- No increased work of breathing Abd- soft, NT, ND Ext- no edema Skin- no rash,no wounds Neuro- AAO*3 Psych- Normal mood, cooperative Results & Data Vital Signs (Past 12 Hours) Vital Signs Temp Pulse Pulse Resp BP Pulse Ox O2 Del Method 05/30/24 11:17 36.9 C 88 20 99/46 L 97 Room Air 05/30/24 11:05 81 05/30/24 08:00 36.8 C 71 18 99/47 L 96 Room Air 05/30/24 05:44 109/57 L 05/30/24 02:45 37.0 C 68 18 87/50 L 97 Room Air Laboratory Results Short CBC 05/30/24 Range/Units 06:34 WBC 3.08 L (4.8-10.8) K/ul Hgb 8.5 L D (14.0-18.0) g/dl Hct 25.4 L (42.0-52.0) % Plt Count 45 L (130-400) K/uL BMP 05/30/24 06:34 Sodium 133 L Potassium 3.6 Chloride 104 Carbon Dioxide 23 BUN 20 Creatinine 1.09 D Glucose 91 Calcium 7.1 L Cardiac Enzymes 05/29/24 05/29/24 Range/Units 10:01 10:30 Total Creatine Kinase Cancelled 184 Liver Function 05/30/24 Range/Units 06:34 Total Bilirubin 1.2 H (0.2-1.0) mg/dl AST 228 H (13-39) U/L ALT 149 H (7-52) U/L Alkaline Phosphatase 79 (34-104) U/L Albumin 2.7 L (3.4-5.0) gm/dl Diagnostic Findings Microbiology 05/29/24 09:06 Blood Aerobic Blood Culture - Preliminary No growth in Aerobic bottle after 24 hours. 05/29/24 09:06 Blood Anaerobic Blood Culture - Preliminary Bacillus species not anthracis 05/29/24 15:14 Blood Blood Parasites Smear - Preliminary 05/29/24 09:05 Blood Aerobic Blood Culture - Preliminary No growth in Aerobic bottle after 24 hours. 05/29/24 09:05 Blood Anaerobic Blood Culture - Preliminary No growth in Anaerobic bottle after 24 hours. Chest X-Ray 05/29/24 08:58 XR chest 1V portable HISTORY: 74 years-old Male Sepsis COMPARISON: 07/29/2023 CT TECHNIQUE: AP view of the chest FINDINGS: Cardiomediastinal and hilar silhouettes are within normal limits. Emphysema without pneumothorax, pleural effusion or airspace consolidation. The bones appear grossly intact. Partially imaged spinal stimulator leads project over the thoracic spine. IMPRESSION: Emphysema without acute process. ACT 112: Negative or not required by law. The above report was generated using voice recognition software. It may contain grammatical, syntax or spelling errors. Electronically signed by: Esa Viera M.D. 05/29/2024 9:22 AM Abdomen/Pelvis CT 05/29/24 09:[address] WITHOUT CONTRAST CT DOSE: 1262.43 mGy.cm HISTORY: sepsis h/o AAA TECHNIQUE: Multiaxial CT images of the abdomen and pelvis were performed without contrast. A dose lowering technique was utilized adhering to the principles of ALARA. COMPARISON STUDY: Abdomen and pelvis CT 05/23/2024. FINDINGS: Splenomegaly again noted which has slightly increased in size. This measures 15.3 cm, previously measuring 14.6 cm. Mild fat stranding and trace fluid adjacent to the posterior medial aspect of the spleen is again noted. This is not significantly changed. Evaluation for splenic infarct is nondiagnostic on this noncontrast study. The spleen abuts the gastric fundus, unchanged. Mild hepatic steatosis. The unenhanced gallbladder, pancreas, adrenal glands, and kidneys are unremarkable. No hydronephrosis. Mild aneurysmal dilatation of the infrarenal abdominal aorta measures up to 3 cm. This remains unchanged. No retroperitoneal lymphadenopathy. There is a small hiatus hernia. Mild emphysema the lung bases. No acute fractures. Small fat-containing umbilical hernia. No pelvic free fluid or pelvic lymphadenopathy. Suboptimal evaluation for bowel pathology due to the lack of intravenous and oral contrast. However, there is no definite bowel wall thickening or obstruction. Normal appendix. The bladder is unremarkable. IMPRESSION: 1. Mild splenomegaly again noted which has slightly progressed. 2. There is mild fat stranding and trace fluid adjacent to the posterior medial aspect of the spleen, unchanged. There is a possible splenic infarct seen on the prior CT examination at this location. This is not well assessed on this study due to the lack of intravenous contrast. 3. No bowel wall thickening or obstruction. 4. Additional findings as described above. ACT 112: Negative or not required by law. Electronically signed by: Boni Garcia M.D. 05/29/2024 10:51 AM Medications Administered Home Medications Medication Instructions Recorded Confirmed Last Taken amlodipine 10 mg tablet 5 mg PO QAM 07/17/20 05/29/24 05/29/24 rosuvastatin 40 mg tablet 40 mg PO QPM 07/17/20 05/29/24 05/28/24 multivitamin 1 tab PO QAM 03/26/21 05/29/24 05/29/24 aspirin 81 mg tablet,delayed 81 mg PO QAM 05/28/21 05/29/24 05/29/24 release Flutter Valve #1 ea 10/06/22 04/26/24 Unknown azelastine 137 mcg (0.1 %) nasal 2 spray intranasal BID #30 mL 03/11/23 05/29/24 05/29/24 spray clopidogrel 75 mg tablet 75 mg PO QAM 07/01/23 05/29/24 05/29/24 albuterol sulfate 2.5 mg/3 mL 2.5 mg (3 mL) inhalation Q4H PRN 07/07/23 05/29/24 12/20/23 16:00 (0.083 %) solution for nebulization shortness of breath or wheezing #180 mL albuterol sulfate 90 mcg/actuation 2 puff inhalation Q6H PRN Wheezing 11/03/23 05/29/24 12/20/23 16:00 aerosol inhaler (ProAir HFA) #6.7 grams polyethylene glycol 3350 17 17 g PO QAM 12/09/23 05/29/24 05/29/24 gram/dose oral powder (Miralax) psyllium husk 0.4 gram capsule 0.4 g PO QAM 12/09/23 05/29/24 05/29/24 (Metamucil) trazodone 50 mg tablet 50 mg PO HS PRN Sleep 12/09/23 05/29/24 12/20/23 ezetimibe 10 mg tablet 10 mg PO QPM 12/14/23 05/29/24 05/28/24 fexofenadine 60 mg-pseudoephedrine 1 tab PO UD PRN allergy symptoms 12/14/23 05/29/24 Unknown ER 120 mg tablet,ext.release,12 hr montelukast 10 mg tablet 10 mg PO QAM 12/14/23 05/29/24 05/29/24 linaclotide 290 mcg capsule 290 mcg PO DAILY #90 caps 12/28/23 05/29/24 05/29/24 (Linzess) gabapentin 300 mg capsule 300 mg PO BID 30 days #60 caps 01/06/24 05/29/24 05/29/24 baclofen 10 mg tablet 10 mg PO BID PRN leg pain /Muscle 03/07/24 05/29/24 Unknown Spasm #60 tabs pregabalin 200 mg capsule 200 mg PO BID 30 days #60 caps 03/07/24 05/29/24 05/29/24 tramadol 50 mg tablet 100 mg (2 x 50 mg) PO BID PRN pain 03/07/24 05/29/24 Unknown 30 days #120 tabs umeclidinium 62.5 mcg-vilanterol 1 inh inhalation DAILY #60 ea 03/17/24 05/29/24 05/29/24 25 mcg/actuation powdr for inhalation (Anoro Ellipta) spironolactone 25 1 tab PO DAILY 05/23/24 05/29/24 05/29/24 mg-hydrochlorothiazide 25 mg tablet tamsulosin 0.4 mg capsule 0.4 mg PO QAM 05/23/24 05/29/24 05/29/24 metoclopramide HCl 5 mg tablet 5 mg PO Q6H PRN nausea #30 tabs 05/24/24 05/29/24 Unknown pantoprazole 40 mg tablet,delayed 40 mg PO BID #60 tabs 05/24/24 05/29/24 05/29/24 release (Protonix) sucralfate 1 gram tablet (Carafate) 1 g PO ACHS #60 tabs 05/24/24 05/29/24 05/29/24 primidone 50 mg tablet 50 mg PO DAILY PRN tremors 05/29/24 05/29/24 Unknown Active Medications Generic Name Dose Route Start Last Admin Trade Name Freq PRN Reason Stop Dose Admin Acetaminophen 1,000 mg 05/30/24 00:06 05/30/24 02:08 Acetaminophen 500 Mg Tab PO 06/29/24 00:05 1,000 mg Q8H PRN Administration As Needed for Fever or Pain Atovaquone 750 mg 05/29/24 21:00 05/30/24 08:13 Atovaquone 750 Mg/5 Ml Udc PO 06/28/24 20:59 750 mg BID BERE Administration Baclofen 10 mg 05/29/24 12:10 05/29/24 18:13 Baclofen 10 Mg Tab PO 06/28/24 12:09 10 mg BID PRN Administration leg pain /Muscle Spasm Doxycycline Hyclate 100 mg 05/29/24 15:00 05/30/24 08:13 Doxycycline Hyclate 100 Mg Cap PO 06/05/24 14:59 100 mg BID BERE Administration Gabapentin 300 mg 05/29/24 21:00 05/30/24 08:12 Gabapentin 300 Mg Cap PO 06/28/24 20:59 300 mg BID BERE Administration Azithromycin 500 mg/ Dextrose 255 mls @ 125 mls/hr 05/30/24 09:00 05/30/24 10:42 IV 06/06/24 08:59 Infused QAM BERE Infusion Linaclotide 290 mcg 05/30/24 09:00 05/30/24 08:13 Linaclotide 145 Mcg Capsule PO 06/29/24 08:59 290 mcg DAILY BERE Administration Multivitamins 1 tab 05/30/24 09:00 05/30/24 08:12 Multivitamin Tab PO 06/29/24 08:59 1 tab QAM BERE Administration Ondansetron HCl 4 mg 05/29/24 18:02 05/29/24 18:12 Ondansetron Inj 2 Mg/Ml 2 Ml Vial IV 06/28/24 18:01 4 mg Q4H PRN Administration Nausea Pantoprazole Sodium 40 mg 05/29/24 21:00 05/30/24 08:13 Pantoprazole 40 Mg Tab PO 06/28/24 20:59 40 mg BID BERE Administration Polyethylene Glycol 17 gm 05/30/24 09:00 05/30/24 08:13 Polyethylene (Miralax) 17 Gm Pack PO 06/29/24 08:59 17 gm QAM BERE Administration Pregabalin 200 mg 05/29/24 21:00 05/30/24 08:23 Pregabalin 100 Mg Cap PO 06/28/24 20:59 200 mg BID BERE Administration Psyllium Hydrophilic Mucilloid 4 gm 05/30/24 09:00 05/30/24 08:13 Psyllium Or Guar Gum Fiber 4gm Packet PO 06/29/24 08:59 4 gm QAM BERE Administration Rosuvastatin Calcium 40 mg 05/29/24 21:00 05/29/24 21:05 Rosuvastatin Calcium 20 Mg Tab PO 06/28/24 20:59 40 mg QPM BERE Administration Tamsulosin HCl 0.4 mg 05/30/24 09:00 05/30/24 08:13 Tamsulosin Hcl 0.4 Mg Cap PO 06/29/24 08:59 0.4 mg QAM BERE Administration Tramadol HCl 100 mg 05/29/24 12:10 05/30/24 08:23 Tramadol Hcl 50 Mg Tablet PO 06/28/24 12:09 100 mg BID PRN Administration pain Trazodone HCl 50 mg 05/29/24 12:10 05/29/24 21:45 Trazodone Hcl 50 Mg Tab PO 06/28/24 12:09 50 mg HS PRN Administration Sleep Umeclidinium/Vilanterol 1 puffs 05/30/24 09:00 05/30/24 08:14 Umeclidinium/Vilanterol 62.5/25mcg 7 Puffs/Inhaler INH 06/29/24 08:59 1 puffs DAILY BERE Administration
--- NOTE | 2024-05-30 18:24 | Billing Data ---
Date of Service May 30, 2024 Coding Level of Care Code 06329 SUB INP/OBS CARE MIN
[2024-05-31] MEDS: SODIUM CHLORIDE 0.9% 500 ML IV SCH (08:33)
[2024-05-31 08:40] LABS: Hematocrit (blood only) 23.6 % (42.0-52.0); Hemoglobin 7.9 g/dl (14.0-18.0); Mean Corpuscular Hemoglobin 27.2 pg (25.0-34.0); Mean Corpuscular Hgb Conc 33.5 g/dL (32.0-36.0); Mean Corpuscular Volume 81.4 fL (80.0-100.0); Mean Platelet Volume 12.2 fL (9.4-12.4); Platelet Count 50 K/uL (130-400); RDW Coefficient of Variation 16.9 % (11.5-14.5); White Blood Count 2.75 K/ul (4.8-10.8)
[2024-05-31 09:24] LABS: Albumin Globulin Ratio 1.2 (0.9-2); Albumin Level 2.6 gm/dl (3.4-5.0); BUN Creatinine Ratio 13.4 (10-20); Bilirubin,Total 0.8 mg/dl (0.2-1.0); Calcium 7.3 mg/dl (8.6-10.3); Creatinine Clr Calc Pharmacy 77.5 ml/min; Est GFR (African American) 88.8 ml/min; Est GFR (Non-African American) 76.6 ml/min; Globulin 2.1 gm/dl (2.5-4.0); Total Protein 4.7 gm/dl (6.0-8.3)
[2024-05-31] MEDS: POTASSIUM CHLORIDE / WTR 10 MEQ/100 ML PLCT IV SCH (11:02)
--- NOTE | 2024-05-31 13:04 | Hospitalist Progress Note ---
Date of Service May 31, 2024 Assessment & Plan (1) Babesiosis: (2) Acute hyponatremia: (3) Acute hypotension: Plan Babesiosis: - Progressively worsening leukopenia, anemia, thrombocytopenia + transaminitis - AM Hgb 7.9, afternoon repeat 8.8 - Repeat AM labs - Type and screen - Will contact ID if considering transfusion - consider if Hgb<7 or for symptomatic anemia - Patient appears to be clinically improving - Peripheral smear consistent with babesiosis, PCR pending - RBC parasite % is 0.1-0.9 %. - Expanded tick-borne illness panel pending - Continue Atovaquone + Azithromycin + Doxycycline - Blood culture 05/29 11/04 bottles +Bacillus, not anthracis, likely contaminant - Repeat blood culture 05/30, 11/04 bottles +Staph, suspect this is also contaminant Soft blood pressure readings: - Continue to hold HCTZ - Asymptomatic, adequate MAP >65, given additional 500mL IV fluids today Constipation: - No bowel movement in 6-7 days - Increase Miralax to Q8h dosing until patient has a bowel movement. VTE Prophylaxis - SCDs, chemical deferred due to thrombocytopenia Diet - regular Admission and Anticipated Discharge Date Admission Date: May 29, 2024 Supervising Physician Co-Signing Physician Notes I personally examined the patient and verified all black points of history and exam, discussed case, and agree with decision making with Dr Cárdenas Feeling better and stronger. Walking around well.. Vitals noted, in general he is awake and alert pleasant Actually standing in the corner of the room with 1 leg up on a chair adjusting his sock looking perfectly balanced whenever I enter, no distress. HEENT normocephalic atraumatic mucous membranes moist. Breathing unlabored no accessory muscle use good effort. Skin without rashes pallor or icterus. Neuro without focal deficits. Sepsis POA due to babesiosiscontinue antibiotics and supportive care. Acute renal failure/JARVIS improved. CBC worse, but not surprising given that we are still early in the course of treatment. No indications for transfusion. Continue current care. Clinically he is improving quite nicely, and I wonder if he will be well enough to get home soon with close outpatient monitoring. Subjective This morning, denies N/V, fever/chills but endorses ongoing weakness. Denies chest pain, abdominal pain, SOB. Constipation - no bowel movement x6-7 days despite daily Miralax. Review of Systems Review of Systems: as per HPI Physical Exam Physical Exam: General: Alert and oriented. No acute distress Cardiac: Regular rate and rhythm, no murmurs appreciated Respiratory: Lungs clear to auscultation bilaterally, No increased work of breathing Abdominal: Soft, non-tender, non-distended. Bowel sounds present. Psych: mood affect congruence Results & Data Results & Data Vital Signs (Past 12 Hours) Vital Signs Temp Pulse Pulse Resp BP Pulse Ox O2 Del Method 05/31/24 11:00 36.7 C 76 18 116/62 94 Room Air 05/31/24 09:00 60 05/31/24 07:00 36.7 C 78 16 96/61 L 97 Room Air 05/31/24 02:43 36.5 C 62 18 98/62 L 96 Room Air Resident Activity Tracking Resident Involvement: Resident Care Provided Care Provided: Adult Hospital Medicine
--- NOTE | 2024-05-31 13:04 | Infectious Disease Progress Nt ---
Date of Service May 31, 2024 Assessment & Plan (1) Babesiosis: Plan This is a 74-year-old man with past medical history of CAD, COPD, pulmonary nodules recently admitted 05/23 - 05/24 with abdominal pain and nausea. He underwent a CTAP that showed an incidental finding of a small infrarenal aneurysm and splenic infarct. He was evaluated by GI and diagnosed with gastritis, he was treated with Zofran, Protonix and Carafate. He now presents on 05/29 for ongoing abdominal pain nausea, vomiting, fever., chills malaise and lightheadedness In the ED, he is afebrile, and hypotensive with a blood pressure of 66/47, HR 90. He was started on fluid resuscitation and blood pressure improved. Labs: WBC 4.29, hemoglobin 11.8,,Hematocrit 34.5,, platelets 61, alk phos 87, ALT 104, AST 99 ,procalcitonin 0.73. Red blood cell noted for inclusions concerning for babesiosis. Babesiosis PCR pending. Chest x-ray with emphysema without acute process. CTAP with mild splenomegaly which has slightly progressed; mild fat stranding and trace fluid adjacent to the posterior medial aspect of the spleen which is unchanged. There is a possible splenic infarct. He has been started on atovaquone and azithromycin for possible babesiosis.. He denies travel outside the [place], but denies tick bites. He admits to camping throughout the summer. ID consulted fr possible Babesiosis. MICRO BC05/24Bacillus sp, not anthracis in 1/4 bottles BC 05/30 GPC in clusters in 1/4 bottles ( staph sp on BCID) ABX Atovaquone 05/29-ongoing Azith 05/29-ongoing Doxy 05/29-ongoing # Possible Babesiosis # Rule out other tick borne illness # Bacillus, not anthracis bacteremia, likely contaminant # Mild splenomegaly and splenic infarct on imaging # Splenic infarct #Thrombocytopenia #Transaminitis RBC parasite % is 0.1-0.9 %. Lyme screen negative. Bacillus sp, not anthracis bacteremia is likely a contaminant, in 1/4 bottles. However REPEATed BC as he has a splenic infarct on imaging. Repeat Bc growing GPC in clusters in 1/4 bottles ( Staph sp on BCID) pending final ID 05/30 wbc 3.08, h/h 8.5/25.4, plts 45, ast 229. alt 149 05/31 qbc 2.75 7.9/23.6--> 8.8/26.4, plt 50 vly247, alt 220 Recommendations Continue Azithromycin 500 mg po daily and atovaquone 750 mg po q12hrs for babesiosis . Follow up Babesia PCR Follow up Anaplasma/ Ehrlichiosis pcr Continue doxycycline 100 mg po Q12 h Follow up Id species o staph sp Started IV vanco per pharm protocol pending staph sp ID ID will continue to follow Lala Senior MD, MPH Infectious Disease ID Connect [facility], ID Division Call [phone] with questions. Admission and Anticipated Discharge Date Admission Date: May 29, 2024 Subjective This patient recommendation is based on a telemedicine consult request which was completed asynchronously through chart review and information provided by the primary physician. The patient was not seen or examined today. The evaluation is consultative in nature and all patient care and treatment decisions can either be accepted or rejected by the patient's primary hospital-based treating physician using their own independent medical judgment for their patient. Time Spent Reviewing Chart: 21 - 30 minutes Repeat BC growing GPC in clusters ( Staph sp in BCID) Results & Data Vital Signs (Past 12 Hours) Vital Signs Temp Pulse Pulse Resp BP Pulse Ox O2 Del Method 05/31/24 11:00 36.7 C 76 18 116/62 94 Room Air 05/31/24 09:00 60 05/31/24 07:00 36.7 C 78 16 96/61 L 97 Room Air 05/31/24 02:43 36.5 C 62 18 98/62 L 96 Room Air Laboratory Results Short CBC 05/31/24 05/31/24 Range/Units 05:48 14:21 WBC 2.75 L (4.8-10.8) K/ul Hgb 7.9 L 8.8 L (14.0-18.0) g/dl Hct 23.6 L 26.4 L (42.0-52.0) % Plt Count 50 L (130-400) K/uL BMP 05/31/24 05:48 Sodium 138 Potassium 4.0 Chloride 108 H Carbon Dioxide 26 BUN 13 Creatinine 0.97 Glucose 82 Calcium 7.3 L Liver Function 05/31/24 Range/Units 05:48 Total Bilirubin 0.8 (0.2-1.0) mg/dl AST 312 H (13-39) U/L ALT 220 H (7-52) U/L Alkaline Phosphatase 103 (34-104) U/L Albumin 2.6 L (3.4-5.0) gm/dl Diagnostic Findings Microbiology 05/30/24 15:47 Blood Aerobic Blood Culture - Preliminary No growth in Aerobic bottle after 24 hours. 05/30/24 15:47 Blood Aerobic Blood Culture - Preliminary Gram positive cocci clusters 05/29/24 09:05 Blood Aerobic Blood Culture - Preliminary No growth in Aerobic bottle after 48 hours. 05/29/24 09:05 Blood Anaerobic Blood Culture - Preliminary No growth in Anaerobic bottle after 48 hours. 05/29/24 09:06 Blood Aerobic Blood Culture - Preliminary No growth in Aerobic bottle after 48 hours. 05/29/24 09:06 Blood Anaerobic Blood Culture - Preliminary Bacillus species not anthracis 05/29/24 15:14 Blood Blood Parasites Smear - Preliminary Medications Administered Home Medications Medication Instructions Recorded Confirmed Last Taken amlodipine 10 mg tablet 5 mg PO QAM 07/17/20 05/29/24 05/29/24 rosuvastatin 40 mg tablet 40 mg PO QPM 07/17/20 05/29/24 05/28/24 multivitamin 1 tab PO QAM 03/26/21 05/29/24 05/29/24 aspirin 81 mg tablet,delayed 81 mg PO QAM 05/28/21 05/29/24 05/29/24 release Flutter Valve #1 ea 10/06/22 04/26/24 Unknown azelastine 137 mcg (0.1 %) nasal 2 spray intranasal BID #30 mL 03/11/23 05/29/24 05/29/24 spray clopidogrel 75 mg tablet 75 mg PO QAM 07/01/23 05/29/24 05/29/24 albuterol sulfate 2.5 mg/3 mL 2.5 mg (3 mL) inhalation Q4H PRN 07/07/23 05/29/24 12/20/23 16:00 (0.083 %) solution for nebulization shortness of breath or wheezing #180 mL albuterol sulfate 90 mcg/actuation 2 puff inhalation Q6H PRN Wheezing 0105/29/24 12/20/23 16:00 aerosol inhaler (ProAir HFA) #6.7 grams polyethylene glycol 3350 17 17 g PO QAM 12/09/23 05/29/24 05/29/24 gram/dose oral powder (Miralax) psyllium husk 0.4 gram capsule 0.4 g PO QAM 12/09/23 05/29/24 05/29/24 (Metamucil) trazodone 50 mg tablet 50 mg PO HS PRN Sleep 12/09/23 05/29/24 12/20/23 ezetimibe 10 mg tablet 10 mg PO QPM 12/14/23 05/29/24 05/28/24 fexofenadine 60 mg-pseudoephedrine 1 tab PO UD PRN allergy symptoms 12/14/23 05/29/24 Unknown ER 120 mg tablet,ext.release,12 hr montelukast 10 mg tablet 10 mg PO QAM 12/14/23 05/29/24 05/29/24 linaclotide 290 mcg capsule 290 mcg PO DAILY #90 caps 12/28/23 05/29/24 05/29/24 (Linzess) gabapentin 300 mg capsule 300 mg PO BID 30 days #60 caps 01/06/24 05/29/24 05/29/24 baclofen 10 mg tablet 10 mg PO BID PRN leg pain /Muscle 03/07/24 05/29/24 Unknown Spasm #60 tabs pregabalin 200 mg capsule 200 mg PO BID 30 days #60 caps 03/07/24 05/29/24 05/29/24 tramadol 50 mg tablet 100 mg (2 x 50 mg) PO BID PRN pain 03/07/24 05/29/24 Unknown 30 days #120 tabs umeclidinium 62.5 mcg-vilanterol 1 inh inhalation DAILY #60 ea 03/17/24 05/29/24 05/29/24 25 mcg/actuation powdr for inhalation (Anoro Ellipta) spironolactone 25 1 tab PO DAILY 05/23/24 05/29/24 05/29/24 mg-hydrochlorothiazide 25 mg tablet tamsulosin 0.4 mg capsule 0.4 mg PO QAM 05/23/24 05/29/24 05/29/24 metoclopramide HCl 5 mg tablet 5 mg PO Q6H PRN nausea #30 tabs 05/24/24 05/29/24 Unknown pantoprazole 40 mg tablet,delayed 40 mg PO BID #60 tabs 05/24/24 05/29/24 05/29/24 release (Protonix) sucralfate 1 gram tablet (Carafate) 1 g PO ACHS #60 tabs 05/24/24 05/29/24 05/29/24 primidone 50 mg tablet 50 mg PO DAILY PRN tremors 05/29/24 05/29/24 Unknown Active Medications Generic Name Dose Route Start Last Admin Trade Name Freq PRN Reason Stop Dose Admin Acetaminophen 1,000 mg 05/30/24 00:06 05/30/24 02:08 Acetaminophen 500 Mg Tab PO 06/29/24 00:05 1,000 mg Q8H PRN Administration As Needed for Fever or Pain Atovaquone 750 mg 05/29/24 21:00 05/31/24 08:14 Atovaquone 750 Mg/5 Ml Udc PO 06/28/24 20:59 750 mg BID BERE Administration Baclofen 10 mg 05/29/24 12:10 05/29/24 18:13 Baclofen 10 Mg Tab PO 06/28/24 12:09 10 mg BID PRN Administration leg pain /Muscle Spasm Doxycycline Hyclate 100 mg 05/29/24 15:00 05/31/24 08:14 Doxycycline Hyclate 100 Mg Cap PO 06/05/24 14:59 100 mg BID BERE Administration Gabapentin 300 mg 05/29/24 21:00 05/31/24 08:14 Gabapentin 300 Mg Cap PO 06/28/24 20:59 300 mg BID BERE Administration Azithromycin 500 mg/ Dextrose 255 mls @ 125 mls/hr 05/30/24 09:00 05/31/24 11:25 IV 06/06/24 08:59 Infused QAM BERE Infusion Linaclotide 290 mcg 05/30/24 09:00 05/31/24 08:15 Linaclotide 145 Mcg Capsule PO 06/29/24 08:59 290 mcg DAILY BERE Administration Multivitamins 1 tab 05/30/24 09:00 05/31/24 08:15 Multivitamin Tab PO 06/29/24 08:59 1 tab QAM BERE Administration Ondansetron HCl 4 mg 05/29/24 18:02 05/29/24 18:12 Ondansetron Inj 2 Mg/Ml 2 Ml Vial IV 06/28/24 18:01 4 mg Q4H PRN Administration Nausea Pantoprazole Sodium 40 mg 05/29/24 21:00 05/31/24 08:14 Pantoprazole 40 Mg Tab PO 06/28/24 20:59 40 mg BID BERE Administration Polyethylene Glycol 17 gm 05/31/24 15:00 05/31/24 16:01 Polyethylene (Miralax) 17 Gm Pack PO 06/30/24 14:59 17 gm Q8H BERE Administration Pregabalin 200 mg 05/29/24 21:00 05/31/24 08:14 Pregabalin 100 Mg Cap PO 06/28/24 20:59 200 mg BID BERE Administration Psyllium Hydrophilic Mucilloid 4 gm 05/30/24 09:00 05/31/24 08:15 Psyllium Or Guar Gum Fiber 4gm Packet PO 06/29/24 08:59 4 gm QAM BERE Administration Rosuvastatin Calcium 40 mg 05/29/24 21:00 05/30/24 21:06 Rosuvastatin Calcium 20 Mg Tab PO 06/28/24 20:59 40 mg QPM BERE Administration Tamsulosin HCl 0.4 mg 05/30/24 09:00 05/31/24 08:15 Tamsulosin Hcl 0.4 Mg Cap PO 06/29/24 08:59 0.4 mg QAM BERE Administration Tramadol HCl 100 mg 05/29/24 12:10 05/31/24 08:14 Tramadol Hcl 50 Mg Tablet PO 06/28/24 12:09 100 mg BID PRN Administration pain Trazodone HCl 50 mg 05/29/24 12:10 05/30/24 21:18 Trazodone Hcl 50 Mg Tab PO 06/28/24 12:09 50 mg HS PRN Administration Sleep Umeclidinium/Vilanterol 1 puffs 05/30/24 09:00 05/31/24 08:14 Umeclidinium/Vilanterol 62.5/25mcg 7 Puffs/Inhaler INH 06/29/24 08:59 1 puffs DAILY BERE Administration
[2024-05-31 13:48] LABS: A calco-baum cmplx NotReported Not Detected (NotDetected); Bact fragilis Not Reported Not Detected (NotDetected); Blood Culture Id Panel See PCR Comment (NotDetected); C auris Not Reported Not Detected (NotDetected); Calbicans Not Reported Not Detected (NotDetected); Candida glabrata Not Reported Not Detected (NotDetected); Candida krusei Not Reported Not Detected (NotDetected); Cneoformans/gatti Not Reported Not Detected (NotDetected); Cparapsilosis Not Reported Not Detected (NotDetected); E cloacae compx Not Reported Not Detected (NotDetected); Efaecalis Not Reported Not Detected (NotDetected); Efaecium Not Reported Not Detected (NotDetected); Enterobacterales Not Reported Not Detected (NotDetected); Escherichia coli Not Reported Not Detected (NotDetected); H influenzae Not Reported Not Detected (NotDetected); K aerogenes Not Reported Not Detected (NotDetected); Koxytoca Not Reported Not Detected (NotDetected); Kpneumoniae grp Not Reported Not Detected (NotDetected); Lmonocyt Not Reported Not Detected (NotDetected); N meningitidis Not Reported Not Detected (NotDetected); P aeruginosa Not Reported Not Detected (NotDetected); Proteus spp Not Reported Not Detected (NotDetected); Salmonella spp Not Reported Not Detected (NotDetected); Staph lugdunensis Not Reported Not Detected (NotDetected); Staph spp. Not Reported DETECTED (NotDetected); Staphaureus Not Reported Not Detected (NotDetected); Staphepi Not Reported Not Detected (NotDetected); Stenmaltophilia Not Reported Not Detected (NotDetected); Strep agal(GrpB) Not Reported Not Detected (NotDetected); Strep pneum Not Reported Not Detected (NotDetected); Strep pyog (GrpA) Not Reported Not Detected (NotDetected); Strep spp Not Reported Not Detected (NotDetected)
[2024-05-31 13:53] LABS: Staphylococcus spp. DETECTED (NotDetected)
[2024-05-31 14:49] LABS: Hematocrit (blood only) 26.4 % (42.0-52.0); Hemoglobin 8.8 g/dl (14.0-18.0)
[2024-05-31] MEDS: POLYETHYLENE (MIRALAX) 17 GM PACK PO SCH (16:01)
--- NOTE | 2024-05-31 16:34 | Billing Data ---
Date of Service May 31, 2024 Coding Level of Care Code 08779 SUB INP/OBS CARE
[2024-05-31] MEDS ORDERED: VANCOMYCIN CONSULT ACTIVE PRN (16:55)
[2024-05-31] MEDS: VANCOMYCIN HCL 2,250 MG in SODIUM CHLORIDE 0.9% 500 ML IV ONE (17:54)
[2024-06-01] MEDS: VANCOMYCIN HCL 1,000 MG in SODIUM CHLORIDE 0.9% 250 ML IV SCH (04:42)
[2024-06-01 05:17] LABS: Babesia microti DNA Detected (Not Detected)
[2024-06-01 07:03] LABS: Hematocrit (blood only) 23.3 % (42.0-52.0); Mean Corpuscular Hemoglobin 27.9 pg (25.0-34.0); Mean Corpuscular Hgb Conc 34.3 g/dL (32.0-36.0); Mean Corpuscular Volume 81.2 fL (80.0-100.0); Mean Platelet Volume 11.7 fL (9.4-12.4); Platelet Count 73 K/uL (130-400); RDW Coefficient of Variation 17.2 % (11.5-14.5); Red Blood Count 2.87 M/uL (4.70-6.10); White Blood Count 2.66 K/ul (4.8-10.8)
[2024-06-01 07:18] LABS: Albumin Globulin Ratio 1.2 (0.9-2); Albumin Level 2.6 gm/dl (3.4-5.0); BUN Creatinine Ratio 9.5 (10-20); Bilirubin,Total 0.6 mg/dl (0.2-1.0); Calcium 7.5 mg/dl (8.6-10.3); Creatinine Clr Calc Pharmacy 89.5 ml/min; Est GFR (Non-African American) 86.3 ml/min; Globulin 2.1 gm/dl (2.5-4.0); Potassium 4.2 mmol/L (3.5-5.1); Total Protein 4.7 gm/dl (6.0-8.3)
--- NOTE | 2024-06-01 12:06 | Discharge Summary ---
Date of Service June 01, 2024 Admission HPI Per Admitting Provider Josh Dennis is a 74 year old male who presents to the ER with nausea, vomiting, generalized weakness, lightheadedness, chills. All symptoms started on May 14 although the right leg pain has been chronic from a neuropathy for which he takes gabapentin and pregabalin but is just worse than usual. lightheadedness like he was going to pass out, weak, feels nauseous but no vomiting. Mild abdominal pain although he reports this isn't new and he carries a diagnosis of irritable bowel syndrome but again is worse than usual with this illness. He has lost his appetite and is eating little with his last bowel movement 4 days ago although he denies any hard stool. No melena, hematochezia, dysphagia or odynophagia. Continues to feels nauseous. Mild chest pressure on deep breathing but denies pain which has been present throughout entire illness. No shortness of breath but also just not doing much. He reports his amlodipine was reduced in half due to low BP a few months ago. He took all his morning medications. Admission Exam Per Admitting Provider Constitutional: WD/WN, vitals as above Eyes: PERRL, conjunctivae normal, anicteric sclerae ENMT: external ear and nose normal, oropharynx normal Respiratory: normal respiratory effort, lungs clear to auscultation Cardiovascular: Rate/Rhythm: regular rate and regular rhythm Heart Sounds: no murmur Extremities: normal capillary refill; no calf tenderness and no pedal edema Gastrointestinal (Abdomen): normal bowel sounds, soft, nontender, no hepatosplenomegaly Musculoskeletal: no cyanosis or clubbing, extremities motor strength 5/5 Skin: no rashes, warm and dry Neurologic: moves all extremities and awake; no focal motor deficits and not confused Psychiatric: A+Ox3, euthymic affect Genitourinary: no CVA tenderness Principal Diagnosis babesiosis Discharge Exam General: Alert and oriented. No acute distress Cardiac: Regular rate and rhythm, no murmurs appreciated Respiratory: Lungs clear to auscultation bilaterally, No increased work of breathing Abdominal: Soft, non-tender, non-distended. Bowel sounds present. Psych: mood affect congruence Discharge Data Allergies Allergy/AdvReac Type Severity Reaction Status Date / Time Iodinated Contrast Media Allergy Mild Hives Verified 05/29/24 10:39 house dust mite Allergy Unknown Per Verified 05/29/24 10:39 allergy testing levalbuterol Allergy Unknown Dyspnea, Verified 05/29/24 10:39 elevated heart rate ? - pt doesn't remember mold Allergy Unknown Per Verified 05/29/24 10:39 allergy testing ragweed pollen Allergy Unknown Per Verified 05/29/24 10:39 allergy testing albuterol [From Combivent] AdvReac Unknown Heart Verified 05/29/24 10:39 racing ipratropium [From Combivent] AdvReac Unknown Heart Verified 05/29/24 10:39 racing lisinopril AdvReac Unknown Cough Verified 05/29/24 10:39 Consultations 05/29/24 10:39 ED Decision to Admit Stat 05/29/24 11:17 Consult Infectious Diseases Routine Ordered Studies Chest X-Ray 05/29/24 08:58 XR chest 1V portable HISTORY: 74 years-old Male Sepsis COMPARISON: 07/29/2023 CT TECHNIQUE: AP view of the chest FINDINGS: Cardiomediastinal and hilar silhouettes are within normal limits. Emphysema without pneumothorax, pleural effusion or airspace consolidation. The bones appear grossly intact. Partially imaged spinal stimulator leads project over the thoracic spine. IMPRESSION: Emphysema without acute process. ACT 112: Negative or not required by law. The above report was generated using voice recognition software. It may contain grammatical, syntax or spelling errors. Electronically signed by: Esa Viera M.D. 05/29/2024 9:22 AM Abdomen/Pelvis CT 05/29/24 09:[address] WITHOUT CONTRAST CT DOSE: 1262.43 mGy.cm HISTORY: sepsis h/o AAA TECHNIQUE: Multiaxial CT images of the abdomen and pelvis were performed without contrast. A dose lowering technique was utilized adhering to the principles of ALARA. COMPARISON STUDY: Abdomen and pelvis CT 05/23/2024. FINDINGS: Splenomegaly again noted which has slightly increased in size. This measures 15.3 cm, previously measuring 14.6 cm. Mild fat stranding and trace fluid adjacent to the posterior medial aspect of the spleen is again noted. This is not significantly changed. Evaluation for splenic infarct is nondiagnostic on this noncontrast study. The spleen abuts the gastric fundus, unchanged. Mild hepatic steatosis. The unenhanced gallbladder, pancreas, adrenal glands, and kidneys are unremarkable. No hydronephrosis. Mild aneurysmal dilatation of the infrarenal abdominal aorta measures up to 3 cm. This remains unchanged. No retroperitoneal lymphadenopathy. There is a small hiatus hernia. Mild emphysema the lung bases. No acute fractures. Small fat-containing umbilical hernia. No pelvic free fluid or pelvic lymphadenopathy. Suboptimal evaluation for bowel pathology due to the lack of intravenous and oral contrast. However, there is no definite bowel wall thickening or obstruction. Normal appendix. The bladder is unremarkable. IMPRESSION: 1. Mild splenomegaly again noted which has slightly progressed. 2. There is mild fat stranding and trace fluid adjacent to the posterior medial aspect of the spleen, unchanged. There is a possible splenic infarct seen on the prior CT examination at this location. This is not well assessed on this study due to the lack of intravenous contrast. 3. No bowel wall thickening or obstruction. 4. Additional findings as described above. ACT 112: Negative or not required by law. Electronically signed by: Boni Garcia M.D. 05/29/2024 10:51 AM Abnormal Labs 05/29/24 05/29/24 05/29/24 09:06 09:07 09:16 WBC 4.29 L RBC 4.24 L Hgb 11.8 L POC Hgb 12.2 L Hct 34.5 L POC Hct 36 L RDW Std Deviation 48.1 H RDW Coeff of Ivan 16.3 H Plt Count 61 L Neut # (Auto) [place] # (Auto) 0.77 H Platelet Estimate Decreased L PT INR APTT POC Sodium 130 L Sodium 127 L Potassium POC Chloride 96 L Chloride 96 L POC Total CO2 22 L POC BUN 31 H BUN 26 H Creatinine 1.43 H POC Creatinine 1.6 H BUN/Creatinine Ratio Glucose 137 H POC Glucose (other) 136 H Calcium 8.5 L POC Ioniz Calcium Harika 1.03 L Total Bilirubin 1.4 H Direct Bilirubin AST ALT 104 H Alkaline Phosphatase Total Protein Albumin Globulin Procalcitonin Urine Appearance Urine Protein Urine Ketones Urine Bilirubin Urine RBC (Auto) U Hyaline Cast (Auto) U Epithel Cells (Auto) Granular Casts Urine Mucus Babesia Smear See Comment A Babesia microti DNA PCR Staphylococcus sp PCR Crossmatch See Detail 05/29/24 05/29/24 05/29/24 10:00 10:01 10:30 WBC RBC Hgb POC Hgb Hct POC Hct RDW Std Deviation RDW Coeff of Ivan Plt Count Neut # (Auto) [place] # (Auto) Platelet Estimate PT INR APTT POC Sodium Sodium Potassium 3.4 L POC Chloride Chloride POC Total CO2 POC BUN BUN Creatinine POC Creatinine BUN/Creatinine Ratio Glucose POC Glucose (other) Calcium POC Ioniz Calcium Harika Total Bilirubin Direct Bilirubin 0.4 H AST 99 H ALT Alkaline Phosphatase Total Protein Albumin Globulin Procalcitonin 0.73 H Urine Appearance Cloudy A Urine Protein 1+ H Urine Ketones Trace H Urine Bilirubin 1+ H Urine RBC (Auto) 6-10 H U Hyaline Cast (Auto) 6-10 H U Epithel Cells (Auto) 6-10 H Granular Casts Present A Urine Mucus Present A Babesia Smear Babesia microti DNA PCR Detected A Staphylococcus sp PCR Crossmatch 05/29/24 05/30/24 05/30/24 11:25 06:34 15:47 WBC 3.08 L RBC 3.10 L Hgb 8.5 L D POC Hgb Hct 25.4 L POC Hct RDW Std Deviation 49.2 H RDW Coeff of Ivan 16.5 H Plt Count 45 L Neut # (Auto) 0.89 L* [place] # (Auto) 0.63 H Platelet Estimate PT 14.6 H INR 1.4 H APTT 37 H POC Sodium Sodium 133 L Potassium POC Chloride Chloride POC Total CO2 POC BUN BUN Creatinine POC Creatinine BUN/Creatinine Ratio Glucose POC Glucose (other) Calcium 7.1 L POC Ioniz Calcium Harika Total Bilirubin 1.2 H Direct Bilirubin AST 228 H ALT 149 H Alkaline Phosphatase Total Protein 4.8 L D Albumin 2.7 L Globulin 2.1 L Procalcitonin Urine Appearance Urine Protein Urine Ketones Urine Bilirubin Urine RBC (Auto) U Hyaline Cast (Auto) U Epithel Cells (Auto) Granular Casts Urine Mucus Babesia Smear Babesia microti DNA PCR Staphylococcus sp PCR DETECTED A Crossmatch 05/31/24 05/31/24 06/01/24 05:48 14:21 06:38 WBC 2.75 L 2.66 L RBC 2.90 L 2.87 L Hgb 7.9 L 8.8 L 8.0 L POC Hgb Hct 23.6 L 26.4 L 23.3 L POC Hct RDW Std Deviation 50.0 H 51.0 H RDW Coeff of Ivan 16.9 H 17.2 H Plt Count 50 L 73 L Neut # (Auto) [place] # (Auto) Platelet Estimate PT INR APTT POC Sodium Sodium Potassium POC Chloride Chloride 108 H 114 H POC Total CO2 POC BUN BUN Creatinine POC Creatinine BUN/Creatinine Ratio 9.5 L Glucose POC Glucose (other) Calcium 7.3 L 7.5 L POC Ioniz Calcium Harika Total Bilirubin Direct Bilirubin AST 312 H 269 H ALT 220 H 231 H Alkaline Phosphatase 117 H Total Protein 4.7 L 4.7 L Albumin 2.6 L 2.6 L Globulin 2.1 L 2.1 L Procalcitonin Urine Appearance Urine Protein Urine Ketones Urine Bilirubin Urine RBC (Auto) U Hyaline Cast (Auto) U Epithel Cells (Auto) Granular Casts Urine Mucus Babesia Smear Babesia microti DNA PCR Staphylococcus sp PCR Crossmatch Hospital Course (1) Babesiosis: (2) Acute hyponatremia: (3) Acute hypotension: Plan Babesiosis: - Peripheral smear on admission consistent with babesiosis, PCR + Babesia - RBC parasite % is 0.1-0.9 %. - Expanded tick-borne illness panel pending at time of discharge - ID consulted, recommend continuation of Atovaquone + Azithromycin + Doxycycline for total of 14 days - Declining blood counts + transaminitis stabilized - WBC count 2.66, Plt 73, Hgb 8.0 on morning of discharge - AST 269, ALT 231 on morning of discharge - Recommend repeat CBC, CMP, and peripheral smear roughly 1 week following discharge. Soft blood pressure readings, relative hypotension: - Persistently low normal BP readings throughout hospital stay - Continue to hold antihypertensives, restart as appropriate in the outpatient setting Total Time Total Time Spent Total Time Spent (In Minutes): <30 Discharge Plan Discharge Items Patient Disposition: Home - Self-Care Reason For Visit: babesiosis Discharge Diagnosis: babesiosis Activity: As commented below Activity Comment: gradual activity progression as tolerated Non-emergency contact: Primary Care Provider Call non-emergency contact if: you have any medication questions, your symptoms worsen and you have a fever Follow-up/Referrals: Manish Price [Primary Care Provider] - 06/07/24 11:00 am (PCP follow up 06/07 @11am) Diet: Regular Addtl Attending Provider Instructions: You were admitted to the hospital for treatment of babesiosis - this is a tick- borne illness. Following discharge, we recommend completing treatment course, which consists of 12 more days of medication. See below for instructions. Throughout your hospital stay, your blood pressure was noted to be consistently on the lower side - please DO NOT restart your blood pressure medication (amlodipine, spironolactone-hydrochlorothiazide) until you discuss with your primary care doctor. Additionally, we recommend checking your blood pressure at home. New Medications: - Azithromycin: Please take 1 tab daily starting on 06/02 - Atovaquone: Please take 5mL by mouth twice daily starting in the evening on 06/01 - Doxycycline: Please take 1 tab twice daily starting in the evening on 06/01 *When taking doxycycline, we recommend that you take this medication with food, drink a full glass of water with medication, avoid lying down immediately after taking, and remember to wear sunscreen when outdoors Please HOLD (DO NOT TAKE) the following medications until you discuss with your outpatient doctor: - Amlodipine - Spironolactone-Hydrochlorothiazide Lab Work: We will include recommendations for lab work in your discharge summary. Your PCP can place these orders at your follow up visit. We recommend being seen in outpatient clinic as soon as possible, ideally by the beginning of next week. Pending Studies at Discharge: Yes Studies:: Tick-borne labs Stand-Alone Forms: My [facility] [email or web address], Smoking Cessation Medications and DC Order Prescriptions: New azithromycin 500 mg tablet 500 mg PO DAILY 12 Days Qty: 12 0RF atovaquone 750 mg/5 mL suspension 750 mg PO BID 12 Days Qty: 120 0RF Rx Instructions: must administer with food, preferably a high-fat meal doxycycline hyclate 100 mg capsule 100 mg PO BID 12 Days Qty: 24 0RF Continued albuterol sulfate 2.5 mg /3 mL (0.083 %) solution for nebulization 2.5 mg inhalation Q4H PRN (Reason: shortness of breath or wheezing) Qty: 180 5RF albuterol sulfate [ProAir HFA] 90 mcg/actuation HFA aerosol inhaler 2 puff INHALATION Q6H PRN (Reason: Wheezing) Qty: 6.7 3RF baclofen 10 mg tablet 10 mg PO BID PRN (Reason: leg pain /Muscle Spasm) Qty: 60 5RF pregabalin 200 mg capsule 200 mg PO BID 30 Days Qty: 60 5RF tramadol 50 mg tablet 100 mg PO BID PRN (Reason: pain) 30 Days Qty: 120 5RF Rx Instructions: must last 30 days rosuvastatin 40 mg tablet 40 mg PO QPM azelastine 137 mcg (0.1 %) aerosol,spray 2 spray intranasal BID Qty: 30 1RF Rx Instructions: administer into each nostril clopidogrel 75 mg tablet 75 mg PO QAM trazodone 50 mg tablet 50 mg PO HS PRN (Reason: Sleep) polyethylene glycol 3350 [Miralax] 17 gram/dose powder 17 g PO QAM psyllium husk [Metamucil] 0.4 gram capsule 0.4 g PO QAM (DME) Flutter Valve Device See Rx Instructions .ROUTE .MEDSUPPLY Qty: 1 0RF Rx Instructions: Use after nebulizer treatment and as needed during the day gabapentin 300 mg capsule 300 mg PO BID 30 Days Qty: 60 5RF Linzess 290 mcg capsule 290 mcg PO DAILY Qty: 90 3RF Anoro Ellipta 62.5-25 mcg/actuation blister with device 1 inh inhalation DAILY Qty: 60 3RF multivitamin Tablet 1 tab PO QAM aspirin 81 mg Tablet,Delayed Release (Dr/Ec) 81 mg PO QAM fexofenadine-pseudoephedrine 60-120 mg tablet extended release 12 hr 1 tab PO UD PRN (Reason: allergy symptoms) ezetimibe 10 mg Tablet 10 mg PO QPM montelukast 10 mg Tablet 10 mg PO QAM tamsulosin 0.4 mg capsule 0.4 mg PO QAM metoclopramide HCl 5 mg tablet 5 mg PO Q6H PRN (Reason: nausea ) Qty: 30 0RF pantoprazole [Protonix] 40 mg tablet,delayed release (DR/EC) 40 mg PO BID Qty: 60 0RF sucralfate [Carafate] 1 gram tablet 1 g PO ACHS Qty: 60 0RF primidone 50 mg tablet 50 mg PO DAILY PRN (Reason: tremors) Held amlodipine 10 mg tablet 5 mg PO QAM Hold Instructions: Resume on 06/15/24. Please hold until you discuss with your PCP spironolacton-hydrochlorothiaz 25-25 mg tablet 1 tab PO DAILY Hold Instructions: Resume on 06/15/24. Please hold until you discuss with your PCP Rx Instructions: filled 03/01/24 90 day supply. Per pt he said he take this medication Discharge Orders: Discharge Order (Routine); Ordered 06/01/24 Ordered By: Boaz Cárdenas Admission Data Admit Date/Time: 05/29/24 10:35 Attending Provider: Tera Daniels Admit Provider: Marco Dye Primary Care Provider: Manish Price Other Providers: Marco Dye; Rica George; Allie Sheth; Lou De; Lala Senior; Danielle Huber; Judy Salcedo Other Interventions: Discharge Summary Assessment (RN) Last Done: 06/01/24 11:57 Supervising Physician Co-Signing Physician Notes I personally examined the patient and verified all black points of history and exam, discussed case, and agree with decision making with Dr Cárdenas Feeling better and stronger. Very much wants to go home. No new complaints. Willing to follow-up closely with PCP. Extensive discussion on antibiotics, management, side effects, etc Vitals noted, in general he is awake and alert pleasant no distress. HEENT normocephalic atraumatic mucous membranes moist. Breathing unlabored no accessory muscle use good effort. Skin shows no rashes no pallor or icterus. Neuro shows no focal deficits. Sepsis POA due to babesiosiscontinue antibiotics and supportive care. Acute renal failure/JARVIS improved. CBC, LFTs stabilizing. Given his clinical stability, and labs stabilization, combined with his strong desire to go homequite reasonable to get him home. Close outpatient PCP follow-up (scheduled for next week) CBC, CMP as an outpatient next week and then trended back to normal. Return to the hospital with any worsening. Finish out 14 days of Zithromax, atovaquone, and doxycycline. Otherwise as above. Resident Activity Tracking Resident Involvement: Resident Care Provided Care Provided: Adult [facility] Medicine
--- NOTE | 2024-06-01 12:07 | Pharmacy Report ---
Pharmacy PK ABX Note - Date of Service June 01, 2024 - Assessment and Plan Assessment 74 year old M receiving VANCOMYCIN IV for treatment of bacteremia (staph species). Pertinent microbiologic data includes: + Babesia DNA, bacillus sp in 1 of 4 bottles BLCXs from 05/29, CoN staph sp (not lugdunensis) in 1 of 4 bottles of BLCX from 05/30, BCID2 also confirmed staph species (not lugdunensis, not aureus and not epidermidis). ID has been consulted. Patient is receiving Azithromycin + Atovaquone + Doxycycline for Babesiosis +/- other Tickborne illnesses. Day # 2 of antimicrobial therapy. Renal fxn stable Plan Vancomycin * Loading dose: 2250 mg IV x 1 given yesterday evening * Maintenance dose: 1000 mg IV every 12 hours * Regimen is predicted to achieve target AUC/SORAYA of 400-600 mg/L.hr * Trough level ordered for: 06/02/24 (prior to 3rd dose) Pharmacy will continue to follow and will adjust dose/frequency as necessary. Thank you. Pharmacy has transitioned to AUC monitoring for vancomycin. AUC/SORAYA is the preferred PK/PD target and is associated with decreased risk of nephrotoxicity compared to traditional trough targets.
--- NOTE | 2024-06-01 13:39 | Infectious Disease Progress Nt ---
Date of Service June 01, 2024 Assessment & Plan (1) Babesiosis: Plan This is a 74-year-old man with past medical history of CAD, COPD, pulmonary nodules recently admitted 05/23 - 05/24 with abdominal pain and nausea. He underwent a CTAP that showed an incidental finding of a small infrarenal aneurysm and splenic infarct. He was evaluated by GI and diagnosed with gastritis, he was treated with Zofran, Protonix and Carafate. He now presents on 05/29 for ongoing abdominal pain nausea, vomiting, fever., chills malaise and lightheadedness In the ED, he is afebrile, and hypotensive with a blood pressure of 66/47, HR 90. He was started on fluid resuscitation and blood pressure improved. Labs: WBC 4.29, hemoglobin 11.8,,Hematocrit 34.5,, platelets 61, alk phos 87, ALT 104, AST 99 ,procalcitonin 0.73. Red blood cell noted for inclusions concerning for babesiosis. Babesiosis PCR pending. Chest x-ray with emphysema without acute process. CTAP with mild splenomegaly which has slightly progressed; mild fat stranding and trace fluid adjacent to the posterior medial aspect of the spleen which is unchanged. There is a possible splenic infarct. He has been started on atovaquone and azithromycin for possible babesiosis.. He denies travel outside the [place], but denies tick bites. He admits to camping throughout the summer. ID consulted fr possible Babesiosis. MICRO BC05/24B Bacillus sp, not anthracis in 1/4 bottles BC 05/30 CONS, not staph lug in 1/4 bottles ABX Atovaquone 05/29-ongoing Azith 05/29-ongoing Doxy 05/29-ongoing Vanc 05/31- ongoing # Possible Babesiosis # Rule out other tick borne illness # Bacillus, not anthracis bacteremia, likely contaminant # CONS bacteremia, likely contaminant # Mild splenomegaly and splenic infarct on imaging # Splenic infarct #Thrombocytopenia #Transaminitis RBC parasite % is 0.1-0.9 %. Lyme screen negative. Bacillus sp, not anthracis bacteremia is likely a contaminant, in 1/4 bottles. However REPEATed BC as he has a splenic infarct on imaging. Repeat Bc growing CONS in 1/4 bottles, likely contaminant 7/30 wbc 3.08, h/h 8.5/25.4, plts 45, ast 229. alt 149 05/31 Wbc 2.75 H/h 7.9/23.6--> 8.8/26.4, plt 50 ast 312, alt 220 8/1 WBC 2.66, H/H 8/23.3, pts 73, ASt 269, alt 231, alk P 117. Feels somewhat better, but complains of continued constipation. Babesia PCR + Anaplasma PCR neg. Ehrlichia PCR pending Recommendations Continue Azithromycin 500 mg po daily and atovaquone 750 mg po q12hrs for babesiosis . Anticipate 10-14 days of therapy depending on clinical response and repeat Blood smear. Follow up Ehrlichiosis pcr Continue doxycycline 100 mg po Q12 h. Anticipate 14 days of therapy Discontinue IV vanco as CONS likely contaminant Monitor BC, H/H, PlTS, LFTS D/w team at bedside. ID will continue to follow Lala Senior MD, MPH Infectious Disease [facility] Call [phone] with questions. Admission and Anticipated Discharge Date Admission Date: May 29, 2024 Subjective Subsequent visit was provided via telemedicine using two-way real-time interactive telecommunication between the patient and the telemedicine provider. For the duration of the visit, the provider was performing the assessment from a different facility than the patient. This includesuse of bluetooth stethoscope forauscultationperformed by the telepresenter that the telemedicine provider can hear if described in the physical exam. Tube [employer]lower contact information: Please call [facility] Call Center . (Phone Number For Physician Use Only) After establishing a telemedicine visit, patient was: Patient was verified with two unique identifiers Time Spent with Patient: Subsequent => 25 min He feels well and wants to go home He complains of constipation and has not had a BM in a few days. Physical Exam Physical Exam: Gen- NAD HEENT- anicteric sclera Neck- supple Lungs- No increased work of breathing Abd- soft, NT, ND Ext- no edema Skin- no rash,no wounds Neuro- AAO*3 Psych- Normal mood, cooperative Results & Data Vital Signs (Past 12 Hours) Vital Signs Temp Pulse Pulse Resp BP Pulse Ox O2 Del Method 06/01/24 11:57 36.4 C L 69 19 140/80 99 06/01/24 11:09 69 19 140/80 99 Room Air 06/01/24 09:03 65 06/01/24 08:01 36.4 C L 69 18 111/64 99 Room Air 06/01/24 02:49 36.7 C 59 L 18 100/49 L 99 Room Air Laboratory Results Short CBC 05/31/24 06/01/24 Range/Units 14:21 06:38 WBC 2.66 L (4.8-10.8) K/ul Hgb 8.8 L 8.0 L (14.0-18.0) g/dl Hct 26.4 L 23.3 L (42.0-52.0) % Plt Count 73 L (130-400) K/uL BMP 06/01/24 06:38 Sodium 141 Potassium 4.2 Chloride 114 H Carbon Dioxide 24 BUN 8 Creatinine 0.84 Glucose 86 Calcium 7.5 L Liver Function 06/01/24 Range/Units 06:38 Total Bilirubin 0.6 (0.2-1.0) mg/dl AST 269 H (13-39) U/L ALT 231 H (7-52) U/L Alkaline Phosphatase 117 H (34-104) U/L Albumin 2.6 L (3.4-5.0) gm/dl Diagnostic Findings Microbiology 05/30/24 15:47 Blood Aerobic Blood Culture - Preliminary Coag neg staph not lugdunensis 05/30/24 15:47 Blood Anaerobic Blood Culture - Final 05/30/24 15:47 Blood Aerobic Blood Culture - Preliminary No growth in Aerobic bottle after 24 hours. 05/30/24 15:47 Blood Anaerobic Blood Culture - Final 05/29/24 09:05 Blood Aerobic Blood Culture - Preliminary No growth in Aerobic bottle after 48 hours. 05/29/24 09:05 Blood Anaerobic Blood Culture - Preliminary No growth in Anaerobic bottle after 48 hours. 05/29/24 09:06 Blood Aerobic Blood Culture - Preliminary No growth in Aerobic bottle after 48 hours. 05/29/24 09:06 Blood Anaerobic Blood Culture - Preliminary Bacillus species not anthracis 05/29/24 15:14 Blood Blood Parasites Smear - Preliminary
--- NOTE | 2024-06-01 17:35 | Billing Data ---
Date of Service June 01, 2024 Coding Level of Care Code 30337 IN/OBS DISCH 30 MIN/LESS
[2024-06-02] MEDS ORDERED: VANCOMYCIN LEVEL ONE (03:00)
[2024-06-02 08:11] LABS: Ehrlichia chaff DNA Bld Negative (Negative)
== END 2024-06-01 13:03 | disposition home or self-care (01) | DRG 872 ==
LOC: ED 08:48 → SUATTDRO 10:35 → EDINP 10:35 → 2E 11:17

== ENCOUNTER 2025-10-25 09:43 | Observation (INO) ==
[2025-10-25] MEDS: SODIUM CHLORIDE 0.9% 1,000 ML IV SCH (10:24)
--- NOTE | 2025-10-25 10:35 | Emergency Department Note ---
Impression & Plan Myalgia, Fever, Nausea, Diarrhea, Hypoxia ED Provider Note CHIEF COMPLAINT: Body aches, chills, diarrhea HISTORY OF PRESENT ILLNESS: This 75-year-old male patient presents to the emergency department via private vehicle for evaluation of bodyaches, chills, diarrhea, nausea. Symptoms started this morning. Patient states that he has had some mild congestion and sore throat for about 24 hours. Woke up this morning with nausea and had 3 episodes of diarrhea. The patient states every joint in his body hurts. He denies any difficulty breathing. He did have some chest pain this morning. He denies any recent travel or injury. Patient did receive a flu vaccine this year. History provided by: Patient REVIEW OF SYSTEMS: A 10 system review of systems was performed with positives and pertinent negatives listed in the history of present illness. All other systems were reviewed and are negative. ALLERGIES: Contrast dye, mold, Combivent, lisinopril PHYSICAL EXAM: VITALS: Vitals are noted on the nurse's note and reviewed by myself. GENERAL: This is a 75-year-old male, in no acute distress, nondiaphoretic, well- developed well-nourished. SKIN: The skin was without rashes, erythema, edema, or bruising. There is no tenting of the skin. Capillary refill less than 2 seconds. HEAD: Normocephalic atraumatic. EARS: External auditory canals clear, tympanic membranes pearly singleton without erythema or effusion bilaterally. No hemotympanum. Negative pradhan sign EYES: Pupils equal round and reactive to light and accommodation. Conjunctivae without injection, sclerae without icterus. Extraocular movements intact. NOSE: Patent, turbinates without inflammation or discharge. No sinus tenderness. MOUTH: Mucous membranes moist. Tonsils are not enlarged. Pharynx without erythema or exudate. Uvula midline. Airway patent. Tongue does not deviate. NECK: Supple without nuchal rigidity. No lymphadenopathy. Cervical spine is nontender. No JVD. HEART: Regular rate and rhythm without murmurs gallops or rubs. LUNGS: Clear to auscultation bilaterally without wheezes, rales or rhonchi. No retractions or accessory muscle use. ABDOMEN: Positive bowel sounds x 4. Soft, nontender, without masses or organomegaly. Desir sign negative. No guarding or rebound tenderness. MUSCULOSKELETAL: No muscle atrophy, erythema, or edema noted. Full range of motion without joint tenderness in all extremities. No tenderness to palpation. Normal gait. Strength 5/5 throughout. NEURO: Patient was alert and oriented to person place and time. Normal sensation to light and sharp touch. Deep tendon reflexes 2+ throughout. No focal neurological deficits. An order was placed for continuous conservation assistant. The monitor showed a normal sinus rhythm at a ventricular rate of 77 bpm, per my interpretation. EKG was reviewed by myself and found to be Normal Sinus Rhythm at a rate of 75 beats per minute and per my interpretation reveals no ST elevation or depression. No T wave inversion. And when compared to previous EKG of 05/30/2024 is without significant change Imaging as interpreted by myself and the radiologist revealed no consolidation, with radiologist interpretation as above. I agree with the radiologist's findings as based upon my independent interpretation. EMERGENCY DEPARTMENT COURSE: The patient was evaluated as above. The patient presents to the emergency department due to body aches, chills, diarrhea. He states that he had some nausea but no vomiting this morning. IV access was obtained, labs were drawn. The patient was hydrated with IV fluids and medicated with acetaminophen and Zofran. Labs were reviewed. Per my interpretation, there is a leukocytosis of 12.56. Mild anemia with a hemoglobin of 13.7, hematocrit 38. No thrombocytopenia. Coagulation studies unremarkable. Renal, hepatic function and electrolytes without significant normality. CK1 94. Troponin 10.8. TSH 1.461. COVID-19, influenza, RSV testing is negative. Procalcitonin elevated at 2.21. Chest x-ray as above. No obvious pneumonia. On reevaluation, the patient notes he is feeling somewhat improved. He is feeling very fatigued. His joint pains have improved. During my conversation with him, he did develop some hypoxia. O2 saturation dropped to 89% on room air. I did place him on 1 L/min of oxygen via nasal cannula. Given the borderline hypoxia and patient presentation, I am concerned for developing respiratory infection. I do feel that the patient would benefit from inpatient care and monitoring. I discussed the case with Dr. Simms, [facility] hospitalist physician. He did agree to evaluate the patient for admission. Please see hospitalist dictation regarding ongoing management of this patient. Case was discussed with the attending physician. I attest that I have personally reviewed the patient medication list. I attest that I have reviewed the patient's blood pressure and it was found to be normal GCS: 15 In the evaluation and treatment of this patient the following differential diagnoses were entertained: Infection, dehydration, metabolic abnormality, hypo/hyperglycemia, electrolyte disturbance, anemia, hypoxia, cardiac sources, intracerebral event, toxicologic, neurologic, as well as other pathologies. The chart was completed utilizing [employer] Speech voice recognition software. Grammatical errors, random word insertions, pronoun errors, and incomplete sentences are an occasional consequence of this system due to software limitations, ambient noise, and hardware issues. Any formal questions or concerns about the content, text, or information contained within the body of this dictation should be directly addressed to the provider for clarification. Past Med/Surg History Problem List (Updated 10/25/25 @ 14:07 by Treva Goldsmith PA-C) Hypoxia (Acute) Diarrhea (Acute) Nausea (Acute) Fever (Acute) Myalgia (Acute) Simple chronic bronchitis Malaise and fatigue Sepsis Peroneal neuropathy Excessive cerumen in left ear canal Oral polyp Babesiosis (Acute) Acute hypotension (Acute) Gastroenteritis Intractable nausea Abdominal pain (Acute) Generalized weakness (Acute) Gastritis Encounter for pre-operative examination Neuropathy Mixed action and resting tremor Abnormal CT scan, chest Ground glass opacities 06/15/2023 Allergic rhinitis MACIEL (dyspnea on exertion) History of sinusitis History of tobacco use Chronic back pain greater than 3 months duration Pulmonary nodule seen on imaging study History of COVID-19 Encounter for pre-operative examination Sensorineural hearing loss (SNHL) Chronic rhinitis Excessive cerumen in both ear canals Acid reflux Seasonal allergies Asthma Heart disease Action tremor (Chronic) Vitamin B12 deficiency Tremor TIA (transient ischemic attack) Restless leg syndrome Lumbar radiculopathy Lumbar canal stenosis Anterior leg pain History of esophageal reflux Chronic obstructive pulmonary disease Chronic asthmatic bronchitis Back pain Atrial fibrillation GERD (gastroesophageal reflux disease) Medical History COPD (chronic obstructive pulmonary disease) Infarction of spleen CAD (coronary artery disease) Stents x 5 total (most recent ~2014), Follows with Dr. Cole 'they went in can cleaned out my stents they were 90" blocked" [place]/3 mon ago. Hypertension Epigastric abdominal pain left - reason for upcoming procedure. Neuropathy Enlarged prostate History of sinusitis History of COVID-19 Dx 05/2020 > symptoms at time of fever, aches, chills, cough, sob, loss of taste/smell, poor appetite > resolved except mild residual MACIEL improving denies sob or c/p with stairs. Tremor Essential tremor (hands), follows with Dr. 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 HLD (hyperlipidemia) HTN (hypertension) COPD (chronic obstructive pulmonary disease) stable Asthma Surgical History History of cardioversion H/O eye surgery History of sinus surgery History of right knee surgery History of esophagogastroduodenoscopy (EGD) History of colonoscopy History of cardiac catheterization Presence of Watchman left atrial appendage closure device History of cardiac radiofrequency ablation Family History Mother Brain tumor Sister Cancer Other No family history of adverse response to anesthesia No family history of bleeding disorder Social History Smoking Status: Former smoker Tobacco Type: Cigarettes Age Started Using Tobacco: 12; Age Quit Using Tobacco: 62; packs per day: 1.5; Second Hand Exposure: No; Do You Dip or Chew Tobacco: No; Tobacco Cessation Education Requested by Patient: No Hx Alcohol Use: No Hx Substance Use: No Preferred Language: Azerbaijani Communication Ability: Effective Hearing Ability: Use of Hearing Aid Human Resource Analyst Required: No Beliefs That Will Affect Care: None Current Living Situation: Significant Other current occupational status: retired Other Information That Helps Us Care for You: No Feels Safe at Home: Yes Safety Concerns: Feels Safe At This Time Assistive Devices: None Allergies Allergies Allergy/AdvReac Type Severity Reaction Status Date / Time Iodinated Contrast Media Allergy Mild Hives Verified 08/17/25 08:22 house dust mite Allergy Unknown Per Verified 08/17/25 08:22 allergy testing levalbuterol Allergy Unknown Dyspnea, Verified 08/17/25 08:22 elevated heart rate ? - pt doesn't remember mold Allergy Unknown Per Verified 08/17/25 08:22 allergy testing ragweed pollen Allergy Unknown Per Verified 08/17/25 08:22 allergy testing albuterol [From Combivent] AdvReac Unknown Heart Verified 08/17/25 08:22 racing ipratropium [From qLearningt] AdvReac Unknown Heart Verified 08/17/25 08:22 racing lisinopril AdvReac Unknown Cough Verified 08/17/25 08:22 Home Meds Home Medications Medication Instructions Recorded Confirmed amlodipine 10 mg tablet 5 mg PO QAM 07/17/20 08/17/25 rosuvastatin 40 mg tablet 40 mg PO QPM 07/17/20 08/17/25 multivitamin 1 tab PO QAM 03/26/21 08/17/25 aspirin 81 mg tablet,delayed 81 mg PO QAM 05/28/21 08/17/25 release polyethylene glycol 3350 17 17 g PO QAM 12/09/23 08/17/25 gram/dose oral powder (Miralax) psyllium husk 0.4 gram capsule 0.4 g PO QAM 12/09/23 08/17/25 (Metamucil) trazodone 50 mg tablet 50 mg PO HS PRN Sleep 12/09/23 08/17/25 ezetimibe 10 mg tablet 10 mg PO QPM 12/14/23 08/17/25 fexofenadine 60 mg-pseudoephedrine 1 tab PO UD PRN allergy symptoms 12/14/23 08/17/25 ER 120 mg tablet,ext.release,12 hr montelukast 10 mg tablet 10 mg PO QAM 12/14/23 08/17/25 spironolactone 25 1 tab PO DAILY 05/23/24 08/17/25 mg-hydrochlorothiazide 25 mg tablet tamsulosin 0.4 mg capsule 0.4 mg PO QAM 05/23/24 08/17/25 Previous Rx's Medication Instructions Recorded Flutter Valve #1 ea 10/06/22 metoclopramide HCl 5 mg tablet 5 mg PO Q6H PRN nausea #30 tabs 05/24/24 sucralfate 1 gram tablet (Carafate) 1 g PO ACHS #60 tabs 05/24/24 baclofen 10 mg tablet 10 mg PO BID PRN leg pain /Muscle 09/07/24 Spasm #60 tabs linaclotide 290 mcg capsule 290 mcg PO DAILY #90 caps 01/05/25 (Linzess) albuterol sulfate 90 mcg/actuation 2 puff inhalation Q6H PRN Wheezing 03/12/25 aerosol inhaler #6.7 grams fluticasone fur. 100 mcg-umeclid 1 inh inhalation DAILY #90 puffs 04/16/25 62.5 mcg-vilant 25 mcg inhalat.powder (Trelegy Ellipta) azelastine 137 mcg (0.1 %) nasal 2 spray intranasal BID #30 mL 06/04/25 spray gabapentin 300 mg capsule 300 mg PO BID 30 days #60 caps 08/08/25 lidocaine 5 % topical patch 2 patch topical Q24H #60 ea 08/17/25 (Lidoderm) pregabalin 200 mg capsule 200 mg PO TID 30 days #90 caps 08/17/25 primidone 50 mg tablet 50 mg PO HS PRN tremors #30 tabs 08/17/25 tramadol 50 mg tablet 100 mg (2 x 50 mg) PO BID PRN pain 08/17/25 30 days #120 tabs pantoprazole 40 mg tablet,delayed See Rx Instructions .Route 09/10/25 release .COMPLEX #180 tabs albuterol sulfate 2.5 mg/3 mL 2.5 mg (3 mL) inhalation Q4H PRN 10/09/25 (0.083 %) solution for nebulization shortness of breath or wheezing #180 mL Results & Data (ED) Vital Signs Vital Signs - 24 hr 10/25/25 09:57 10/25/25 10:18 10/25/25 10:22 Temperature 36.9 C 38.1 C H Temperature Source Oral Oral Pulse Rate 85 77 Pulse Rate [Apical] Pulse Rhythm Respiratory Rate 18 Respiratory Effort / Characteristics Non-Labored Spontaneous Respiratory Depth Normal Respiratory Pattern Regular Blood Pressure 106/67 Blood Pressure Mean 80 Pulse Oximetry 91 Oxygen Delivery Method Room Air Oxygen Flow Rate Sepsis Recent Fever Within 48 Hours No Sepsis New/Unexplained Change in Mental Status No Sepsis Action Taken by Nursing No Action Required Oxygen Flow Rate - Titration Pulse Oximetry Post Tiitration 10/25/25 10:35 10/25/25 10:41 10/25/25 11:00 Temperature Temperature Source Pulse Rate 77 75 74 Pulse Rate [Apical] Pulse Rhythm Regular Respiratory Rate 15 20 17 Respiratory Effort / Characteristics Respiratory Depth Respiratory Pattern Blood Pressure 128/65 121/61 Blood Pressure Mean 82 72 Pulse Oximetry 94 93 92 Oxygen Delivery Method Room Air Room Air Room Air Oxygen Flow Rate Sepsis Recent Fever Within 48 Hours Sepsis New/Unexplained Change in Mental Status Sepsis Action Taken by Nursing Oxygen Flow Rate - Titration Pulse Oximetry Post Tiitration 10/25/25 11:32 10/25/25 11:32 10/25/25 12:00 Temperature 37.4 C Temperature Source Oral Pulse Rate 67 69 Pulse Rate [Apical] Pulse Rhythm Respiratory Rate 22 14 Respiratory Effort / Characteristics Respiratory Depth Respiratory Pattern Blood Pressure 105/57 L 91/60 L Blood Pressure Mean 74 63 Pulse Oximetry 94 91 Oxygen Delivery Method Room Air Oxygen Flow Rate Sepsis Recent Fever Within 48 Hours Sepsis New/Unexplained Change in Mental Status Sepsis Action Taken by Nursing Oxygen Flow Rate - Titration Pulse Oximetry Post Tiitration 10/25/25 12:07 10/25/25 12:07 10/25/25 12:14 Temperature Temperature Source Pulse Rate 63 63 Pulse Rate [Apical] 63 Pulse Rhythm Respiratory Rate 14 15 Respiratory Effort / Characteristics Respiratory Depth Respiratory Pattern Blood Pressure 96/55 L 96/55 L Blood Pressure Mean 67 67 Pulse Oximetry 92 92 88 L Oxygen Delivery Method Room Air Room Air Room Air Oxygen Flow Rate Sepsis Recent Fever Within 48 Hours Sepsis New/Unexplained Change in Mental Status Sepsis Action Taken by Nursing Oxygen Flow Rate - Titration Pulse Oximetry Post Tiitration 10/25/25 12:30 10/25/25 12:30 Temperature Temperature Source Pulse Rate 66 Pulse Rate [Apical] Pulse Rhythm Respiratory Rate 14 Respiratory Effort / Characteristics Respiratory Depth Respiratory Pattern Blood Pressure 100/57 L Blood Pressure Mean 75 Pulse Oximetry 89 L 93 Oxygen Delivery Method Room Air Nasal Cannula Nasal Cannula Oxygen Flow Rate 0 1 Sepsis Recent Fever Within 48 Hours Sepsis New/Unexplained Change in Mental Status Sepsis Action Taken by Nursing Oxygen Flow Rate - Titration 1 Pulse Oximetry Post Tiitration 93 Laboratory Data 10/25/25 10:25 10/25/25 10:25 Lab Results 10/25/25 10/25/25 10/25/25 Range/Units 10:25 10:30 12:35 WBC 12.56 H (4.8-10.8) K/ul RBC 4.55 L (4.70-6.10) M/uL Hgb 13.7 L (14.0-18.0) g/dL Hct 38.0 L (42.0-52.0) % MCV 83.5 (80.0-100.0) fL MCH 30.1 (25.0-34.0) pg MCHC 36.1 H (32.0-36.0) g/dL RDW Std Deviation 39.5 (36.4-46.3) fL RDW Coeff of Ivan 13.0 (11.5-14.5) % Plt Count 206 (130-400) K/uL MPV 9.5 (9.4-12.4) fL Immature Gran % (Auto) 0.3 % Neut % (Auto) 83.0 % Lymph % (Auto) 7.3 % [place] % (Auto) 8.8 % Eos % (Auto) 0.2 % Baso % (Auto) 0.4 % Neut # (Auto) 10.42 H (1.40-6.50) K/uL Lymph # (Auto) 0.92 L (1.20-3.40) K/uL [place] # (Auto) 1.10 H (0.11-0.59) K/uL Eos # (Auto) 0.03 (0.00-0.50) K/uL Baso # (Auto) 0.05 (0.00-0.20) K/uL Immature Gran # (Auto) 0.04 (0.01-0.20) K/uL PT 10.9 (9.0-12.0) Seconds INR 1.0 (0.9-1.1) Sodium 136 (136-145) mmol/L Potassium 3.4 L (3.5-5.1) mmol/L Chloride 102 (98-107) mmol/L Carbon Dioxide 24 (21-32) mmol/L Anion Gap 10 (3-11) BUN 17 (6-23) mg/dl Creatinine 1.04 (0.6-1.4) mg/dl Est Cr Clr Drug Dosing 75.7 ml/min eGFR 74.88 BUN/Creatinine Ratio 16.3 (10-20) Glucose 112 H (70-99(Fasting)) mg/dl Lactate 1.6 (0.4-2.0) mmol/L Calcium 9.2 (8.6-10.3) mg/dl Magnesium 1.9 (1.7-2.4) mg/dl Total Bilirubin 0.7 (0.2-1.0) mg/dl AST 28 (13-39) U/L ALT 22 (7-52) U/L Alkaline Phosphatase 50 (34-104) U/L Total Creatine Kinase 194 (30-223) U/L Troponin I High Sens 10.8 (0-20) pg/ml Total Protein 7.1 (6.0-8.3) gm/dl Albumin 4.4 (3.4-5.0) gm/dl Globulin 2.7 (2.5-4.0) gm/dl Albumin/Globulin Ratio 1.6 (0.9-2) Procalcitonin 2.21 H (0-0.5) ng/ml TSH 1.461 (0.300-4.500) uIu/ml SARS-CoV-2 (PCR) NEGATIVE (Negative) Influenza Type A (PCR) Negative (Neg) Influenza Type B (PCR) Negative (Neg) RSV (RT-PCR) Negative (Neg) Administered Medications Lactated Ringer's (Lr) 1,000 mls @ 125 mls/hr IV .Q8H COUNTS INCLUDE 234 BEDS AT THE [facility] Stop: 10/26/25 07:44 Last Admin: 10/25/25 16:18 Dose: 125 mls/hr Documented By: MICHELLE Ceftriaxone Sodium (Rocephin) 2,000 mg in 50 mls @ 100 mls/hr IV Q24H COUNTS INCLUDE 234 BEDS AT THE [facility] Stop: 10/27/25 15:59 Last Admin: 10/25/25 16:20 Dose: 100 mls/hr Documented By: MICHELLE Discontinued Medications Enoxaparin Sodium (Enoxaparin Inj 40 Mg/0.4 Ml Syr) Confirm Administered Dose 40 mg .ROUTE .STK-MED ONE Stop: 10/25/25 14:42 Last Admin: 10/25/25 14:47 Dose: Not Given Documented By: ARELI Sodium Chloride (Nss) 1,000 mls @ 999 mls/hr IV .Q1H1M COUNTS INCLUDE 234 BEDS AT THE [facility] Stop: 10/25/25 11:15 Last Infusion: 10/25/25 11:27 Dose: Infused Documented By: Admin: 10/25/25 10:24 Dose: 999 mls/hr Documented By: JANES Acetaminophen (Ofirmev) 1,000 mg in 100 mls @ 400 mls/hr IV NOW STA Stop: 10/25/25 10:45 Last Infusion: 10/25/25 11:06 Dose: Infused Documented By: Admin: 10/25/25 10:41 Dose: 400 mls/hr Documented By: JANES Ondansetron HCl (Ondansetron Inj 2 Mg/Ml 2 Ml Vial) 4 mg IV NOW STA Stop: 10/25/25 10:06 Last Admin: 10/25/25 10:41 Dose: 4 mg Documented By: JANES Imaging Data Radiologist's Impression: Chest X-Ray 10/25/25 10:05 EXAM: Radiograph of the Chest 1 View INDICATION: Weakness TECHNIQUE: Frontal view of the chest. COMPARISON: 05/29/2024 FINDINGS: Lungs and pleural spaces: Hyperinflation with mild pulmonary vascular congestion. Mild scarring in the lung bases. No infiltrate. No pleural effusion or pneumothorax. Heart: Stable allowing for technical differences. Mediastinum: Normal contour. Bones/joints: No fracture, erosion or dislocation. Soft tissues: No abnormality noted. No radiopaque foreign body noted. Vasculature: Stable ectatic aorta. Upper abdomen: No abnormality noted. IMPRESSION: Mild pulmonary vascular congestion. ACT 112: N/A Electronically signed by Sandra Jarquin 10-25-2025 10:46 AM Discharge Plan Visit Data Chief Complaint: Leg Weakness, Bilateral Stated Complaint: PAIN IN BOTH LEGS/WEAKNESS ED Provider: Robert Argueta ED Midlevel Provider: Treva Goldsmith Discharge Problem: Myalgia, Fever, Nausea, Diarrhea, Hypoxia Patient Disposition: Admitted As Inpatient Condition: Good Discharge Instructions Interventions: ED Discharge Assessment Last Done: 10/25/25 14:55
[2025-10-25] MEDS: ONDANSETRON INJ 2 MG/ML 2 ML VIAL IV STA (10:41)
[2025-10-25] MEDS: ACETAMINOPHEN 1,000 MG/100 ML VIAL IV STA (10:41)
[2025-10-25 10:45] LABS: Hematocrit (blood only) 38.0 % (42.0-52.0); Hemoglobin 13.7 g/dL (14.0-18.0); Immature Granulocytes # (auto) 0.04 K/uL (0.01-0.20); Immature Granulocytes % (auto) 0.3 %; Mean Corpuscular Hemoglobin 30.1 pg (25.0-34.0); Mean Corpuscular Volume 83.5 fL (80.0-100.0); Platelet Count 206 K/uL (130-400); RDW Standard Deviation 39.5 fL (36.4-46.3); Red Blood Count 4.55 M/uL (4.70-6.10); White Blood Count 12.56 K/ul (4.8-10.8)
--- NOTE | 2025-10-25 10:46 | XRay Report ---
EXAM: Radiograph of the Chest 1 View INDICATION: Weakness TECHNIQUE: Frontal view of the chest. COMPARISON: 05/29/2024 FINDINGS: Lungs and pleural spaces: Hyperinflation with mild pulmonary vascular congestion. Mild scarring in the lung bases. No infiltrate. No pleural effusion or pneumothorax. Heart: Stable allowing for technical differences. Mediastinum: Normal contour. Bones/joints: No fracture, erosion or dislocation. Soft tissues: No abnormality noted. No radiopaque foreign body noted. Vasculature: Stable ectatic aorta. Upper abdomen: No abnormality noted. IMPRESSION: Mild pulmonary vascular congestion. ACT 112: N/A Electronically signed by Sandra Jarquin 10-25-2025 10:46 AM
[2025-10-25 11:01] LABS: Alanine Aminotransferase 22.0 U/L (7-52); Albumin Globulin Ratio 1.6 (0.9-2); Albumin Level 4.4 gm/dl (3.4-5.0); Alkaline Phosphatase 50.0 U/L (34-104); Anion Gap 10.0 (3-11); Bilirubin,Total 0.7 mg/dl (0.2-1.0); Blood Urea Nitrogen 17.0 mg/dl (6-23); Calcium 9.2 mg/dl (8.6-10.3); Carbon Dioxide 24.0 mmol/L (21-32); Chloride 102.0 mmol/L (98-107); Creatine Kinase 194.0 U/L (30-223); Creatinine Clr Calc Pharmacy 75.7 ml/min; Globulin 2.7 gm/dl (2.5-4.0); Glucose 112.0 mg/dl (70-99(Fasting)); Magnesium 1.9 mg/dl (1.7-2.4); Potassium 3.4 mmol/L (3.5-5.1); Sodium 136.0 mmol/L (136-145); Total Protein 7.1 gm/dl (6.0-8.3)
[2025-10-25 11:10] LABS: INR 1.0 (0.9-1.1); Prothrombin Time 10.9 Seconds (9.0-12.0)
[2025-10-25 11:19] LABS: Thyroid Stimulating Hormone 1.461 uIu/ml (0.300-4.500)
[2025-10-25 11:32] LABS: Influenza A virus by PCR Negative (Neg); Influenza B virus by PCR Negative (Neg); SARS CoV2 RNA(COVID-19) Ceph NEGATIVE (Negative)
--- NOTE | 2025-10-25 12:39 | History & Physical Report ---
Date of Service October 25, 2025 Assessment & Plan (1) Sepsis: (2) Malaise and fatigue: (3) Simple chronic bronchitis: Plan In summary this is a 75-year-old male who presents with generalized malaise, found to have uncomplicated sepsis suspected to be secondary to community-acquired pneumonia Patient presents with initial febrile temperature of 38.1 C, leukocytosis greater than 12,000, with clinical findings of questionable early community- acquired pneumonia; there is no objective radiographic evidence of this however the patient is significantly volume depleted on exam, thus after fluid resuscitation, Blooming effect may be appreciated and more yoselin pneumonia may be present; there is no alternative infectious etiology at this time based on his history, physical exam, and laboratory assessment Start ceftriaxone 1 g IV daily Start azithromycin 500 mg IV daily Obtain blood cultures prior to antibiotic administration Obtain sputum culture if the patient begins developing a productive cough Start volume resuscitation with maintenance IV fluids of 125 mL/h Follow daily CBC, RFP, magnesium Patient does have chronic peripheral neuropathy suspected to be secondary to vitamin deficiencies; he is presenting with significant malaise and fatigue though is able to navigate his home independently; PT and OT are consulted for assistance with disposition planning Patient is unsure of his prescribed medication regimen, pending reconciliation in order to continue home medications appropriately DVT PPx: Start Lovenox 40 mg SQ daily GI PPx: Not indicated at this time History of Present Illness Chief Complaint: General malaise Primary Care Provider: Manish Price Mr. Dennis is a 75-year-old male whose active medical conditions include chronic obstructive pulmonary disease with simple chronic bronchitis, gastroesophageal reflux disease, peripheral neuropathy secondary to vitamin deficiencies with a remote history of atrial fibrillation without recurrence who presents to the [facility] on 10/25 due to sudden onset malaise, and generalized fatigue. The patient describes that they were in her usual state of health on 10/24. They were with the family members celebrating the holiday season, and returned home without any noted ill contacts or individuals who are experiencing similar symptoms to which the patient presented to the emergency department with. Patient describes waking at approximately 0300 hrs. on 10/25 with general achiness and fatigue. He is able to navigate to the bathroom without difficulty, he had multiple loose bowel movements after taking milk of magnesia the evening before. Due to his persistent symptoms and feeling generally unwell he presented to the emergency department for evaluation. The patient denies any fevers, chills, emesis, hematemesis, newly productive cough, abdominal pain, abdominal distention, lower extremity edema, orthopnea, platypnea, palpitations, chest pain. He denies any recent antibiotic courses. Allergies Allergy/AdvReac Type Severity Reaction Status Date / Time Iodinated Contrast Media Allergy Mild Hives Verified 08/17/25 08:22 house dust mite Allergy Unknown Per Verified 08/17/25 08:22 allergy testing levalbuterol Allergy Unknown Dyspnea, Verified 08/17/25 08:22 elevated heart rate ? - pt doesn't remember mold Allergy Unknown Per Verified 08/17/25 08:22 allergy testing ragweed pollen Allergy Unknown Per Verified 08/17/25 08:22 allergy testing albuterol [From Combivent] AdvReac Unknown Heart Verified 08/17/25 08:22 racing ipratropium [From Combivent] AdvReac Unknown Heart Verified 08/17/25 08:22 racing lisinopril AdvReac Unknown Cough Verified 08/17/25 08:22 Home Medications Medication Instructions Recorded Confirmed Type amlodipine 10 mg tablet 5 mg PO QAM 07/17/20 08/17/25 History rosuvastatin 40 mg tablet 40 mg PO QPM 07/17/20 08/17/25 History multivitamin 1 tab PO QAM 03/26/21 08/17/25 History aspirin 81 mg tablet,delayed 81 mg PO QAM 05/28/21 08/17/25 History release Flutter Valve #1 ea 10/06/22 08/17/25 Rx polyethylene glycol 3350 17 17 g PO QAM 12/09/23 08/17/25 History gram/dose oral powder (Miralax) psyllium husk 0.4 gram capsule 0.4 g PO QAM 12/09/23 08/17/25 History (Metamucil) trazodone 50 mg tablet 50 mg PO HS PRN Sleep 12/09/23 08/17/25 History ezetimibe 10 mg tablet 10 mg PO QPM 12/14/23 08/17/25 History fexofenadine 60 mg-pseudoephedrine 1 tab PO UD PRN allergy symptoms 12/14/23 08/17/25 History ER 120 mg tablet,ext.release,12 hr montelukast 10 mg tablet 10 mg PO QAM 12/14/23 08/17/25 History spironolactone 25 1 tab PO DAILY 05/23/24 08/17/25 History mg-hydrochlorothiazide 25 mg tablet tamsulosin 0.4 mg capsule 0.4 mg PO QAM 05/23/24 08/17/25 History metoclopramide HCl 5 mg tablet 5 mg PO Q6H PRN nausea #30 tabs 05/24/24 08/17/25 Rx sucralfate 1 gram tablet (Carafate) 1 g PO ACHS #60 tabs 05/24/24 08/17/25 Rx baclofen 10 mg tablet 10 mg PO BID PRN leg pain /Muscle 09/07/24 08/17/25 Rx Spasm #60 tabs linaclotide 290 mcg capsule 290 mcg PO DAILY #90 caps 01/05/25 08/17/25 Rx (Linzess) albuterol sulfate 90 mcg/actuation 2 puff inhalation Q6H PRN Wheezing 03/12/25 08/17/25 Rx aerosol inhaler #6.7 grams fluticasone fur. 100 mcg-umeclid 1 inh inhalation DAILY #90 puffs 04/16/25 08/17/25 Rx 62.5 mcg-vilant 25 mcg inhalat.powder (Trelegy Ellipta) azelastine 137 mcg (0.1 %) nasal 2 spray intranasal BID #30 mL 06/04/25 08/17/25 Rx spray gabapentin 300 mg capsule 300 mg PO BID 30 days #60 caps 08/08/25 08/17/25 Rx lidocaine 5 % topical patch 2 patch topical Q24H #60 ea 08/17/25 08/17/25 Rx (Lidoderm) pregabalin 200 mg capsule 200 mg PO TID 30 days #90 caps 08/17/25 08/17/25 Rx primidone 50 mg tablet 50 mg PO HS PRN tremors #30 tabs 08/17/25 08/17/25 Rx tramadol 50 mg tablet 100 mg (2 x 50 mg) PO BID PRN pain 08/17/25 08/17/25 Rx 30 days #120 tabs pantoprazole 40 mg tablet,delayed See Rx Instructions .Route 09/10/25 Rx release .COMPLEX #180 tabs albuterol sulfate 2.5 mg/3 mL 2.5 mg (3 mL) inhalation Q4H PRN 10/09/25 Rx (0.083 %) solution for nebulization shortness of breath or wheezing #180 mL Past Med/Surg History Problem List (Updated 10/25/25 @ 13:31 by Erick Simms DO) Simple chronic bronchitis Malaise and fatigue Sepsis Peroneal neuropathy Excessive cerumen in left ear canal Oral polyp Babesiosis (Acute) Acute hypotension (Acute) Gastroenteritis Intractable nausea Abdominal pain (Acute) Generalized weakness (Acute) Gastritis Encounter for pre-operative examination Neuropathy Mixed action and resting tremor Abnormal CT scan, chest Ground glass opacities 06/15/2023 Allergic rhinitis MACIEL (dyspnea on exertion) History of sinusitis History of tobacco use Chronic back pain greater than 3 months duration Pulmonary nodule seen on imaging study History of COVID-19 Encounter for pre-operative examination Sensorineural hearing loss (SNHL) Chronic rhinitis Excessive cerumen in both ear canals Acid reflux Seasonal allergies Asthma Heart disease Action tremor (Chronic) Vitamin B12 deficiency Tremor TIA (transient ischemic attack) Restless leg syndrome Lumbar radiculopathy Lumbar canal stenosis Anterior leg pain History of esophageal reflux Chronic obstructive pulmonary disease Chronic asthmatic bronchitis Back pain Atrial fibrillation GERD (gastroesophageal reflux disease) Medical History COPD (chronic obstructive pulmonary disease) Infarction of spleen CAD (coronary artery disease) Stents x 5 total (most recent ~2014), Follows with Dr. Cole 'they went in can cleaned out my stents they were 90" blocked" [place]/3 mon ago. Hypertension Epigastric abdominal pain left - reason for upcoming procedure. Neuropathy Enlarged prostate History of sinusitis History of COVID-19 Dx 05/2020 > symptoms at time of fever, aches, chills, cough, sob, loss of taste/smell, poor appetite > resolved except mild residual MACIEL improving denies sob or c/p with stairs. Tremor Essential tremor (hands), follows with Dr. 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 HLD (hyperlipidemia) HTN (hypertension) COPD (chronic obstructive pulmonary disease) stable Asthma Surgical History History of cardioversion H/O eye surgery History of sinus surgery History of right knee surgery History of esophagogastroduodenoscopy (EGD) History of colonoscopy History of cardiac catheterization Presence of Watchman left atrial appendage closure device History of cardiac radiofrequency ablation Family History Mother Brain tumor Sister Cancer Other No family history of adverse response to anesthesia No family history of bleeding disorder Social History Smoking Status: Former smoker Tobacco Type: Cigarettes Age Started Using Tobacco: 12; Age Quit Using Tobacco: 62; packs per day: 1.5; Second Hand Exposure: Yes (AT WORK/MOTHER SMOKED); Do You Dip or Chew Tobacco: No (hx off and on for 10 yr/ quit > 1 yr ago.); Hx Alcohol Use: Yes Alcohol type: beer and hard liquor Hx Substance Use: No Preferred Language: Belarusian Communication Ability: Effective Hearing Ability: Use of Hearing Aid Project Consultant Required: No Beliefs That Will Affect Care: None Current Living Situation: Significant Other current occupational status: retired Feels Safe at Home: Yes Assistive Devices: Glasses Review of Systems Review of Systems: Review of constitutional, cardiovascular, pulmonary, gastrointestinal, genitourinary systems was unremarkable except for pertinent positive and negative findings discussed above Physical Exam Physical Exam: General: Elderly male in no acute distress Vital Signs: Reviewed; Initial presenting temperature of 38.1 C, maintaining oxygen saturation in the range of 88 to 95% on room air HEENT: Dry mucous membranes; extraocular motion intact, pupils equally round reactive to light Neck: Trachea midline Pulmonary: Symmetric chest wall excursion without restriction; diffusely diminished air movement throughout all lung carter however no rhonchi, rales, or wheezing is appreciable Cardiovascular: Regular rate and rhythm without murmurs, rubs, or gallops; S1 and S2 normal; right radial pulse 2+; no notable lower extremity edema Gastrointestinal: Soft, protuberant; normal bowel sounds throughout without tenderness to palpation Musculoskeletal: Generalized achiness without any evidence of gross traumatic injury, or asymmetry in muscle tone or mass Neurologic: Cranial nerves II through XII grossly intact; no discernible focal weakness nor paresthesia Skin: No apparent rashes Results & Data Results & Data Vital Signs (Past 12 Hours) Vital Signs Temp Pulse Pulse Resp BP Pulse Ox O2 Del Method 10/25/25 12:14 63 88 L Room Air 10/25/25 12:07 63 15 96/55 L 92 Room Air 10/25/25 12:07 63 14 96/55 L 92 Room Air 10/25/25 12:00 69 14 91/60 L 91 10/25/25 11:32 67 22 105/57 L 94 Room Air 10/25/25 11:32 37.4 C 10/25/25 11:00 74 17 121/61 92 Room Air 10/25/25 10:41 75 20 128/65 93 Room Air 10/25/25 10:35 77 15 94 Room Air 10/25/25 10:22 77 10/25/25 10:18 38.1 C H 10/25/25 09:57 36.9 C 85 18 106/67 91 Room Air Laboratory Results Neutrophilic leukocytosis 12.56 Hemoglobin 13.7, platelets 206 Serum potassium 3.4 Procalcitonin 2.21 COVID, influenza A and B, and RSV PCR negative Diagnostic Findings Portable chest film without significant acute pathology; some mild cephalization of the vessels bilaterally with some fluid noted in the medial fissure Code Status & VTE Plan Code Status Full code VTE Prophylaxis Plan VTE Prophylaxis will be ordered: Yes PG Care Time/CCT Total # of Minutes Spent Total Time Spent with Patient: Total time spent is greater than 50% in coordination of care (as documented) at patient's floor/unit and/or counseling patient: Coding Level of Care Code 32523 INT INP/OBS CARE 2MIN Diagnoses Sepsis without acute organ dysfunction, due to unspecified organism A41.9 Sepsis type: sepsis due to unspecified organism Sepsis acute organ dysfunction status: without acute organ dysfunction Malaise and fatigue R53.81; R53.83 Simple chronic bronchitis J41.0 (1) Sepsis Sepsis type: sepsis due to unspecified organism Sepsis acute organ dysfunction status: without acute organ dysfunction Qualified Code(s): A41.9 - Sepsis, unspecified organism
[2025-10-25] MEDS: ENOXAPARIN INJ 40 MG/0.4 ML SYR ONE (14:47)
[2025-10-25 14:56] VITALS: RESP 16
[2025-10-25] MEDS ORDERED: ACETAMINOPHEN 500 MG TAB PO SCH (15:45)
[2025-10-25] MEDS: LACTATED RINGER'S 1,000 ML IV SCH (16:18)
[2025-10-25] MEDS: cefTRIAXone SODIUM 2,000 MG/50 ML BAG IV SCH (16:20)
[2025-10-25] MEDS: AZITHROMYCIN 500 MG/255 ML BAG IV SCH (16:27)
[2025-10-25] MEDS: KETOROLAC 30 MG/ML VIAL IV SCH (16:35)
[2025-10-25] MEDS: ENOXAPARIN INJ 40 MG/0.4 ML SYR SQ SCH (17:02)
[2025-10-25] MEDS: ACETAMINOPHEN 500 MG TAB PO SCH (17:44)
[2025-10-25] MEDS: LACTATED RINGER'S 500 ML IV ONE (22:41)
[2025-10-25] MEDS: MAGNESIUM SULFATE / D5W 1 GM/100 ML BAG IV ONE (23:25)
[2025-10-25] MEDS: POTASSIUM CHLORIDE CRTAB 20 MEQ TABCR PO STA (23:25)
--- NOTE | 2025-10-26 01:45 | Communication Note ---
Date of Service: October 26, 2025 Alerted by nurse via TT around 22:30 that pt hypotensive 86/53 with HR 47. Reviewed chart. Appears BP was low earlier in the day in the 90s systolic but improved for a time. Pt is asymptomatic. EKG done due to bradycardia, shows sinus with first degree heart block. Unclear if this is new for the patient or if he has had it before. Electrolytes low, given 40 mEq potassium and 1 gm IV mag. No anti-hypertensives noted to have been given today. He does take antihypertensives at home Pt's hypotension treated with 500mL boluses of LRx2 due to concern of cardiac hx and CXR on admission earlier in the day showed mild pulm congestion, so fluids used more cautiously. Resident Activity Tracking Resident Involvement: Resident Care Provided Care Provided: Adult Hospital Medicine
[2025-10-26] MEDS: LACTATED RINGER'S 500 ML IV ONE (01:55)
[2025-10-26 06:19] LABS: Hematocrit (blood only) 33.2 % (42.0-52.0); Hemoglobin 11.6 g/dL (14.0-18.0); Immature Granulocytes # (auto) 0.03 K/uL (0.01-0.20); Immature Granulocytes % (auto) 0.3 %; Mean Corpuscular Hemoglobin 30.6 pg (25.0-34.0); Mean Corpuscular Volume 87.6 fL (80.0-100.0); Platelet Count 167 K/uL (130-400); RDW Standard Deviation 42.9 fL (36.4-46.3); Red Blood Count 3.79 M/uL (4.70-6.10); White Blood Count 9.89 K/ul (4.8-10.8)
[2025-10-26 06:38] LABS: Albumin Level 3.3 gm/dl (3.4-5.0); Anion Gap 5.0 (3-11); Blood Urea Nitrogen 20.0 mg/dl (6-23); Calcium 8.1 mg/dl (8.6-10.3); Carbon Dioxide 28.0 mmol/L (21-32); Chloride 104.0 mmol/L (98-107); Creatinine Clr Calc Pharmacy 59.8 ml/min; Glucose 98.0 mg/dl (70-99(Fasting)); Magnesium 2.7 mg/dl (1.7-2.4); Potassium 4.0 mmol/L (3.5-5.1); Sodium 137.0 mmol/L (136-145)
[2025-10-26 08:20] VITALS: BP 138/70; PULSE 59; TEMP 97.5; O2SAT 99
--- NOTE | 2025-10-26 08:45 | XRay Report ---
EXAM: XR chest 2V PA/lateral CLINICAL HISTORY: Reassess for CAP madera TECHNIQUE: X-ray images of the chest were obtained in posteroanterior (PA) and lateral projections. COMPARISON: 10/25/2025. FINDINGS: Pulmonary Parenchyma: Redemonstration of bilateral hilar vascular congestion with interstitial prominence, demonstrating interval progression, suggesting changes of pulmonary edema. Subtle haze in the left lower zone and blunting of the bilateral costophrenic angle may be due to minimal effusion with atelectasis. Heart and Mediastinum: Heart size and shape are normal. No mediastinal widening or masses. No hilar or mediastinal lymphadenopathy. Bony Thorax: Bony thorax appears intact without fractures or deformities. Soft Tissues: Soft tissues overlying the chest wall are unremarkable. A linear radiopaque structure projecting over the midline lower chest is compatible with a spinal stimulator. IMPRESSION: 1. Redemonstration of bilateral hilar vascular congestion with interstitial prominence, demonstrating interval progression, suggesting changes of pulmonary edema. 2. Subtle haze in the left lower zone and blunting of the bilateral costophrenic angle may be due to minimal effusion with atelectasis. An interval new finding. 3. Need clinical correlation and follow-up. Electronically signed by Kian Arce 10-26-2025 08:45 AM
[2025-10-26] MEDS ORDERED: ALBUTEROL 0.083% NEBU SOLN 3 ML VIAL NEB PRN (09:11)
[2025-10-26] MEDS ORDERED: PRIMIDONE 50 MG TAB PO PRN (09:11)
[2025-10-26] MEDS: GABAPENTIN 300 MG CAP PO SCH (09:58)
[2025-10-26] MEDS: ASPIRIN 81 MG ECTAB PO SCH (09:58)
[2025-10-26] MEDS: EZETIMIBE 10 MG TAB PO SCH (09:58)
[2025-10-26] MEDS: LINACLOTIDE 145 MCG CAPSULE PO SCH (09:58)
[2025-10-26] MEDS: ROSUVASTATIN CALCIUM 20 MG TAB PO SCH (09:59)
[2025-10-26] MEDS: UMECLIDINIUM/VILANTEROL 62.5/25MCG 7 PUFFS/INHALER INH SCH (10:04)
--- NOTE | 2025-10-26 10:25 | Discharge Summary ---
Discharge Summary Date of Service October 26, 2025 Principal Dx & Hospital Course #1 = Principal Diagnosis (1) Sepsis: (2) Community acquired pneumonia: (3) Simple chronic bronchitis: Plan In summary this is a 75-year-old male who presents with generalized malaise, found to have uncomplicated sepsis suspected to be secondary to community- acquired pneumonia Treated with ceftriaxone and azithromycin and significantly improved. Discharged to complete course of oral antibiotics: amoxicillin-clavulanate and azithromycin. Did not use oral cephalosporin because of drug interaction with his PPI. Patient does have chronic peripheral neuropathy suspected to be secondary to vitamin deficiencies; he was stronger and did well enough with PT/OT to return home with outpatient therapy. Continued usual medications Admission HPI Per Admitting Provider Mr. Dennis is a 75-year-old male whose active medical conditions include chronic obstructive pulmonary disease with simple chronic bronchitis, gastroesophageal reflux disease, peripheral neuropathy secondary to vitamin deficiencies with a remote history of atrial fibrillation without recurrence who presents to the [facility] on 10/25 due to sudden onset malaise, and generalized fatigue. The patient describes that they were in her usual state of health on 10/24. They were with the family members celebrating the holiday season, and returned home without any noted ill contacts or individuals who are experiencing similar symptoms to which the patient presented to the emergency department with. Patient describes waking at approximately 0300 hrs. on 10/25 with general achiness and fatigue. He is able to navigate to the bathroom without difficulty, he had multiple loose bowel movements after taking milk of magnesia the evening before. Due to his persistent symptoms and feeling generally unwell he presented to the emergency department for evaluation. The patient denies any fevers, chills, emesis, hematemesis, newly productive cough, abdominal pain, abdominal distention, lower extremity edema, orthopnea, platypnea, palpitations, chest pain. He denies any recent antibiotic courses. Discharge Exam Last 24h vitals reviewed GEN: no acute distress, sitting edge of bed HEENT: pupils equal, sclerae anicteric, moist MM RESP: normal WOB, CTAB except mild L>R basilar crackles CV: reg no mrg ABD: soft/nt/nd +BT : no silverio SKIN: warm and dry, no generalized rashes NEURO: AOx person, place, and situation. Face symmetric, speech normal, moves 4 ext spontaneously and equally Discharge Plan Discharge Items Patient Disposition: Home - Self-Care Reason For Visit: SEPSIS, SUSPECTED CAP Discharge Diagnosis: Community acquired pneumonia Condition on Discharge: Good Activity: Resume your previous activity Non-emergency contact: Primary Care Provider Call non-emergency contact if: you have any medication questions, your symptoms worsen and your temperature is above 101 Follow-up/Referrals: Manish Price [Primary Care Provider] - 10/31/25 11:20 am Diet: Heart Healthy Addtl Attending Provider Instructions: You were treated for community acquired pneumonia You'll cough for awhile, but it should be gradually improving and sputum should be getting clearer Finish the antibiotics (amoxicillin-clavulanate and azithromycin) until they run out You can take a probiotic for 2-4 weeks to prevent antibiotic associated diarrhea. These are available over the counter. If you have rash or severe diarrhea after/while taking antibiotics, call your doctor. Diarrhea associated with broad spectrum antibiotics can occur up to six months following antibiotics. If you have significant ongoing diarrhea, especially with abdominal pain or fever, seek medical attention. It was a pleasure taking care of you in the hospital, Danielle Schwarz MD Pending Studies at Discharge: Yes (blood cultures - negative to date. Finalize after 5 days) Stand-Alone Forms: [facility] [employer], Smoking Cessation Medications and DC Order Prescriptions: New amoxicillin-pot clavulanate 875-125 mg tablet 1 tab PO BID Qty: 10 0RF Rx Instructions: start this evening azithromycin 500 mg tablet 500 mg PO DAILY Qty: 2 0RF Rx Instructions: start this evening Continued baclofen 10 mg tablet 10 mg PO BID PRN (Reason: leg pain /Muscle Spasm) Qty: 60 5RF Linzess 290 mcg capsule 290 mcg PO DAILY Qty: 90 3RF albuterol sulfate 90 mcg/actuation HFA aerosol inhaler 2 puff INHALATION Q6H PRN (Reason: Wheezing) Qty: 6.7 3RF gabapentin 300 mg capsule 300 mg PO BID 30 Days Qty: 60 5RF pantoprazole 40 mg tablet,delayed release (DR/EC) See Rx Instructions .ROUTE .COMPLEX Qty: 180 2RF Dose Instruction: Take 1 tablet by mouth twice daily Rx Instructions: Take 1 tablet by mouth twice daily albuterol sulfate 2.5 mg /3 mL (0.083 %) solution for nebulization 2.5 mg inhalation Q4H PRN (Reason: shortness of breath or wheezing) Qty: 180 5RF rosuvastatin 40 mg tablet 40 mg PO QPM trazodone 50 mg tablet 50 mg PO HS PRN (Reason: Sleep) polyethylene glycol 3350 [Miralax] 17 gram/dose powder 17 g PO QAM psyllium husk [Metamucil] 0.4 gram capsule 0.4 g PO QAM (DME) Flutter Valve Device See Rx Instructions .ROUTE .MEDSUPPLY Qty: 1 0RF Rx Instructions: Use after nebulizer treatment and as needed during the day amlodipine 10 mg tablet 5 mg PO QAM Hold Instructions: Resume on 06/15/24. Please hold until you discuss with your PCP Marly Ellipta 100-62.5-25 mcg blister with device 1 inh inhalation DAILY Qty: 90 3RF Rx Instructions: 3-month supply azelastine 137 mcg (0.1 %) spray,non-aerosol 2 spray intranasal BID Qty: 30 3RF Rx Instructions: administer into each nostril lidocaine [Lidoderm] 5 % adhesive patch,medicated 2 patch topical Q24H Qty: 60 2RF Rx Instructions: leave on most painful area for up to 12 hrs tramadol 50 mg tablet 100 mg PO BID PRN (Reason: pain) 30 Days Qty: 120 5RF Rx Instructions: must last 30 days pregabalin 200 mg capsule 200 mg PO TID 30 Days Qty: 90 5RF primidone 50 mg tablet 50 mg PO HS PRN (Reason: tremors) Qty: 30 5RF multivitamin Tablet 1 tab PO QAM aspirin 81 mg Tablet,Delayed Release (Dr/Ec) 81 mg PO QAM fexofenadine-pseudoephedrine 60-120 mg tablet extended release 12 hr 1 tab PO UD PRN (Reason: allergy symptoms) ezetimibe 10 mg Tablet 10 mg PO QPM montelukast 10 mg Tablet 10 mg PO QAM spironolacton-hydrochlorothiaz 25-25 mg tablet 1 tab PO DAILY Hold Instructions: Resume on 06/15/24. Please hold until you discuss with your PCP Rx Instructions: filled 03/01/24 90 day supply. Per pt he said he take this medication tamsulosin 0.4 mg capsule 0.4 mg PO QAM metoclopramide HCl 5 mg tablet 5 mg PO Q6H PRN (Reason: nausea ) Qty: 30 0RF sucralfate [Carafate] 1 gram tablet 1 g PO ACHS Qty: 60 0RF Discharge Orders: Discharge Order (Routine); Ordered 10/26/25 Ordered By: Danielle Conte/Other Patient Handouts: Pneumonia Community Acquired, Amoxicillin/Clavulanate Extended Release Oral Tablet, Azithromycin Oral Tablet Admission Data Admit Date/Time: 10/25/25 13:24 Attending Provider: Danielle Schwarz Admit Provider: Erick Simms Primary Care Provider: Manish Price Other Providers: Erick Simms Other Interventions: Discharge Summary Assessment (RN) Last Done: 10/26/25 10:22 Hospital Stay Data Consultations 10/25/25 12:30 ED Decision to Admit Stat Pending Results Patient Have Any Pending Studies at Discharge: Yes (blood cultures - negative to date. Finalize after 5 days) Discharge Instructions Given to Patient (Per Discharging Provider) You were treated for community acquired pneumonia You'll cough for awhile, but it should be gradually improving and sputum should be getting clearer Finish the antibiotics (amoxicillin-clavulanate and azithromycin) until they run out You can take a probiotic for 2-4 weeks to prevent antibiotic associated diarrhea. These are available over the counter. If you have rash or severe diarrhea after/while taking antibiotics, call your doctor. Diarrhea associated with broad spectrum antibiotics can occur up to six months following antibiotics. If you have significant ongoing diarrhea, especially with abdominal pain or fever, seek medical attention. It was a pleasure taking care of you in the hospital, Danielle Schwarz MD Total Time Total Time Spent Total Time Spent (In Minutes): <30 Coding Level of Care Code 85521 IN/OBS DISCH 30 MIN/LESS Diagnoses Sepsis without acute organ dysfunction, due to unspecified organism A41.9 Sepsis acute organ dysfunction status: without acute organ dysfunction Sepsis type: sepsis due to unspecified organism Community acquired pneumonia J18.9 Simple chronic bronchitis J41.0
--- NOTE | 2025-10-26 13:45 | Electrocardiogram Report ---
Test Reason : Blood Pressure : */* mmHG Vent. Rate : 75 BPM Atrial Rate : 75 BPM P-R Int : 178 ms QRS Dur : 114 ms QT Int : 394 ms P-R-T Axes : 78 -45 19 degrees QTcB Int : 439 ms Normal sinus rhythm Left anterior fascicular block Abnormal ECG When compared with ECG of 30-May-2024 05:08, QRS axis Shifted left Confirmed by Josemanuel Fletcher ([id number]) on 10/26/2025 1:45:14 PM Referred By: REFERRED SELF Confirmed By: Josemanuel Fletcher
--- NOTE | 2025-10-26 13:46 | Electrocardiogram Report ---
Test Reason : Blood Pressure : */* mmHG Vent. Rate : 47 BPM Atrial Rate : 47 BPM P-R Int : 212 ms QRS Dur : 112 ms QT Int : 496 ms P-R-T Axes : 17 -21 -7 degrees QTcB Int : 438 ms Sinus bradycardia with 1st degree A-V block Otherwise normal ECG When compared with ECG of 25-Oct-2025 10:49, (unconfirmed) SD interval has increased Vent. rate has decreased by 28 bpm Confirmed by Josemanuel Fletcher ([id number]) on 10/26/2025 1:46:13 PM Referred By: Manish Price Confirmed By: Josemanuel Fletcher
[2025-10-26] MEDS ORDERED: PREGABALIN 100 MG CAP PO SCH (14:00)
[2025-10-26] MEDS ORDERED: TAMSULOSIN HCL 0.4 MG CAP PO SCH (21:00)
[2025-10-26] MEDS ORDERED: MONTELUKAST SODIUM 10 MG TABLET PO SCH (21:00)
== END 2025-10-26 11:07 | disposition home or self-care (01) | DRG 871 ==
LOC: ED 09:43 → SUATTDRO 13:24 → 3E 13:24 → INTOOBSV 13:24 → 3E 14:55